=== PATIENT | female | born 1990 | race Caucasian/White ===

== ENCOUNTER → 2017-05-04 18:06 | Outpatient (CLI) | payer OTHER, SELFPAY | PROVIDERS: Family Provider Student in an Organized Health Care Education/Training Program; PCP Student in an Organized Health Care Education/Training Program; Visit Provider Nurse Practitioner Women's Health | DX: N30.01 Acute cystitis with hematuria (principal) | CPT/HCPCS: 87086; 87088; 87186 ==

== ENCOUNTER → 2017-05-13 14:58 | Outpatient (CLI) | payer OTHER, SELFPAY ==
[2017-05-13 18:05] LABS: Chlamydia Trachomatis by PCR Negative (Negative); Neisserai gonorrhoeae by PCR Negative (Negative); Probe Check PASS; Sample Adequacy Control PASS; Specimen Processing Control PASS
[2017-05-19 11:28] LABS: HPV Reflexed? NOT INDICATED
== END ==
PROVIDERS: Family Provider Student in an Organized Health Care Education/Training Program; PCP Student in an Organized Health Care Education/Training Program; Visit Provider Nurse Practitioner Women's Health
DX: Z12.4 Encounter for screening for malignant neoplasm of cervix (principal); Z11.3 Encounter for screening for infections with a predominantly sexual mode of transmission
CPT/HCPCS: 87491; 87591; 88175; G0145

== ENCOUNTER → 2019-11-01 10:28 | Outpatient (CLI) | payer OTHER, SELFPAY ==
[2019-11-01 09:39] VITALS: BMI 41.0
[2019-11-01 13:13] LABS: Free T3 2.9 pg/mL (2.18-3.98); T4 Free Direct 0.92 ng/dL (0.76-1.46); Thyroid Stim Hormone (TSH) 1.65 uIU/mL (0.358-3.74)
== END ==
LOC: BIMLAB 10:29
PROVIDERS: PCP Student in an Organized Health Care Education/Training Program; Referring Provider Internal Medicine Endocrinology, Diabetes & Metabolism; Visit Provider Internal Medicine Endocrinology, Diabetes & Metabolism
DX: R94.6 Abnormal results of thyroid function studies (principal)
CPT/HCPCS: 36415; 84439; 84443; 84481

== ENCOUNTER 2019-11-18 06:27 | Day surgery (SDC) | payer OTHER, SELFPAY ==
[2019-11-01 09:39] VITALS: BMI 41.0
[2019-11-18] VITALS (7 sets, daily range): BP systolic 118–136; BP diastolic 79–92; PULSE 53–92; RESP 16; TEMP 36.4–36.5; O2SAT 97–100; BMI 40.0
[2019-11-18 06:57] LABS: Internal QC Validated? YES +Cl - CLEAR BKGD; Pregnancy, Urine Negative Negative
[2019-11-18] MEDS: Lactated Ringers 1,000 ML 100 ML IV ×2 (07:13→10:09)
--- NOTE | 2019-11-18 08:05 | TUR_PTH ---
PATIENT: YOUNG SANTA [place] [facility] [id number] AGE/SX: 29/F ROOM: RE11/18/[address]: Dr. Faisal Kaufman MD : 1990 BED: DIS: 11/18/2019 SPEC #: [id number] RECD: 11/18/19 09:14 STATUS: RIANA FELIX #: [id number] LATA: 11/18/19 08:[address]: Faisal Kaufman DEPT: SURGICAL PATHOLOGY RECD BY: Nick Thomas ENTERED: 11/18/19 12:45 SP TYPE: TURBINATES OTHR DR: Dr. Douglas Verdugo, DO Tissues: Nasal turbinate, NOS Procedures: Decalcification bone/plaque Surgery Specimen Level III HEADER OPERATION: Septoplasty, resect/outfracture turbinates PRE-OP DIAGNOSIS: Deviated nasal septum, hypertrophy of nasal turbinates TISSUE SUBMITTED: Cartilage and nasal bone MICROSCOPIC DIAGNOSIS Cartilage and nasal bone, septoplasty: Fragments of cartilage and bone, clinically deviated nasal septum. MONTRELL:edwina 11/23/19 MICROSCOPIC DESCRIPTION Slides are reviewed. GROSS DESCRIPTION Received in fixative is one container labeled with the patient's name and designated nasal cartilage and bone. The specimen consists of multiple fragments of cartilage and bone mixed with hemorrhagic soft tissue that in aggregate measure 7 x 3 x 0.3 cm. Manager Cath Lab tissue is submitted in two cassettes after decalcification. / MONTRELL:edwina 11/21/19 TC:5 CPT: 16395, 13925
[2019-11-18] MEDS: Lidocaine 4% 50 ML Bottle (08:25)
[2019-11-18] MEDS: Bacitracin 500 UNITS/GM PACKET (08:25)
[2019-11-18] MEDS: Oxymetazoline 0.05% 1 SPRAY SPRAY.BTL 15 SPRAY (08:30)
--- NOTE | 2019-11-18 08:57 | DCINST_ITS ---
You will use the following diet at home:: No restrictions Discharge Activity: Return to Normal Activity, May not drive while taking narco tic pain medications. Call your doctor if your incision/area has: Continuous Slow Oozing, Sudden Increased Bleeding Call your doctor if you observe: Fever of 101 or Higher, Uncontrolled pain Allergies/Adverse Reactions: Allergies No Known Allergies Allergy (Verified 11/09/19 14:04) Medications to take at Discharge fluticasone propionate 50 mcg/actuation nasal spray,suspension 1 spray INTRANASAL BID 11/01/19 Primary Care Physician: Douglas Verdugo DO [Primary Care Provider] - Test Results: Test results from this visit will be discussed in further detail at your follow- up appointment, if applicable. Please Follow Up With: Faisal Kaufman MD When: 5 days
--- NOTE | 2019-11-18 08:57 | PCM.OPRPT ---
Problem List (1) Deviated nasal septum Status: Chronic (2) Hypertrophy of both inferior nasal turbinates Status: Chronic Report of Operation Date of Procedure: 11/18/19 Pre-Operative Diagnosis: Deviated nasal septum, hypertrophy of bilateral inferior nasal turbinates Post-Operative Diagnosis: Same Surgery/Procedure Performed:: Septoplasty, submucous resection of bilateral inferior nasal turbinates Description of Surgical Findings:: Yue is a 29-year-old female complains of chronic nasal obstruction failing medical therapy. Examination showed marked leftward nasal septal deviation and hypertrophy of the inferior nasal turbinates. The above procedure was offered in hopes of improvement of her nasal obstruction complaints and she was eager to proceed. The risk of coronavirus exposure in this time period was discussed and she is agreeable to accept this risk in exchange for treatment of her her chronic condition. The risks, alternatives, potential complications, and benefits were discussed at length and any questions answered to the patient and/or caregiver's satisfaction. Witnessed informed consent was obtained in the office, and the patient and/or caregiver was agreeable to proceed. Procedure went as follows: The patient was identified in the preoperative holding and brought to the operating room, was placed under general anesthesia and intubated. When appropriate anesthesia was obtained, pledgets soaked in a 50-50 mixture of oxymetazoline and 4% topical lidocaine were placed to decongest the nasal mucosa. The nasal septum was then injected beginning on the left side with 1% lidocaine with 100,000 epinephrine for a total of 5 mL. The pledgets were then removed and the left nasal cavity examined. There was noted to be significant nasal septal deviation to the left. Using a 15 blade scalpel, a hemitransfixion incision was then made on the left side and using the [place] elevator a subperichondrial/periosteal flap was elevated. The septum was then transected at the bony cartilaginous junction and a similar flap raised on the contralateral side. Using a Vicky forceps, the septum was then sharply transected superiorly and the deviated portions removed with a Melissa forceps. Any inferior bony spur was then removed with a chisel allowing for midline placement of the nasal septum. The hemitransfixion incision was then closed with interrupted 4-0 chromic gut suture followed by a 4-0 plain quilting suture to reapproximate the mucosal flaps. Attention was then turned to the inferior nasal turbinates. Beginning on the left side, the anterior aspect of the inferior turbinate was then injected with 1% lidocaine with 100,000 epinephrine for a total of 2.5 mL bilaterally. Again beginning on the left side a 15 blade scalpel was used to create a stab incision in the anterior aspect of the turbinate. A caudal elevator was then used to elevate a submucosal plane. Using the microdebrider, the anterior bony and intervening submucosal tissue was then removed resulting in reduction of the inferior turbinate. Similar procedure was then completed on the contralateral side. Corral splints were then applied after coating with bacitracin ointment and secured to the columella with a single 3-0 Prolene suture. The patient was then returned to anesthesia, was revived and extubated having tolerated the procedure well without complications. Type of Anesthesia:: General Anesthesiologist: Faisal Harding Special Medications: none Specimen's removed: septal and turbinate contents Drains: none Estimated Blood Loss (mL): 100 mL Fluids Replaced: 1100 mL Grafts/Implants Used: Corral splints - Complications none - Admit VTE Documentation VTE Present on Admission: No VTE Mechan Device Prophylaxis: SCD's VTE Pharm Prophylaxis ordered?: No
[2019-11-18] MEDS: HYDROcodone Bitartrate/Apap 5/325 Tablet PO (10:09)
== END 2019-11-18 11:21 | disposition home or self-care (01) ==
LOC: SDC 06:27 → AC 06:29
PROVIDERS: Anesthesiology; PCP Student in an Organized Health Care Education/Training Program; Referring Provider Otolaryngology; Visit Provider Otolaryngology
PROC: (CPT 30520; principal; 2019-11-18 07:50)
DX: J34.2 Deviated nasal septum (principal); Z11.59 Encounter for screening for other viral diseases; G25.81 Restless legs syndrome; J34.3 Hypertrophy of nasal turbinates; Z79.51 Long term (current) use of inhaled steroids
CPT/HCPCS: 00160; 30140; 30520; 81025; 87635; 88304; 88311; C9803; J7120; J2405; U0003

== ENCOUNTER → 2020-01-04 12:01 | Outpatient (CLI) | payer OTHER, SELFPAY ==
[2019-11-18 06:50] VITALS: BMI 40.0
[2020-01-04 15:52] LABS: Free T3 2.5 pg/mL (2.18-3.98); T4 Free Direct 0.91 ng/dL (0.76-1.46)
== END ==
LOC: BIMLAB 12:03
PROVIDERS: PCP Student in an Organized Health Care Education/Training Program; Referring Provider Internal Medicine Endocrinology, Diabetes & Metabolism; Visit Provider Internal Medicine Endocrinology, Diabetes & Metabolism
DX: E06.3 Autoimmune thyroiditis (principal)
CPT/HCPCS: 36415; 84439; 84443; 84481

== ENCOUNTER 2021-02-03 04:13 | Emergency (ER) | payer BC, SELFPAY ==
[2021-02-03 04:14] VITALS: BP 137/79; PULSE 114; RESP 28; TEMP 36.4; O2SAT 97; BMI 39.9
[2021-02-03 04:18] VITALS: BP 137/79; PULSE 114; RESP 28; TEMP 36.4; O2SAT 97
[2021-02-03] MEDS: 0.9% Normal Saline 1,000 ML 999 ML IV ×2 (04:32→06:00)
[2021-02-03 04:39] LABS: Absolute Lymphocyte Count 0.71 X10^3/uL (0.83-4.51); Basophil# 0.01 X10^3/uL; Basophil% 0.3 % (0-1); Hematocrit 38.5 % (37-47); Hemoglobin 12.9 g/dL (12.0-15.0); Lymphocyte # 0.71 X10^3/ul (0.83-4.51); Lymphocyte % 23.3 % (19-41); Mean Corp Hgb Conc 33.5 g/dL (32-36); Mean Corpuscular Hgb 28.2 pg (27.0-32.0); Mean Corpuscular Volume 84.2 fL (81-99); Mean Platelet Vol. 9.9 fl (6.2-12.0); Monocyte% 9.8 % (0-10); NRBC Flagged by Analyzer 0 % (0-5); Neutrophil % 65.6 % (47-70); Platelet Count 138 K/mm3 (150-450); RBC Distribution Width CV 13.8 % (11.6-14.6); RBC Distribution Width SD 42.3 fl (35.1-43.9); Red Blood Count 4.57 M/mm3 (4.2-5.4); White Blood Count 3.1 K/mm3 (4.4-11.0)
[2021-02-03 04:41] LABS: Mucous, Urine 0 SEEN /hpf (<or=2+); Red Blood Cells-Urine 0 SEEN /hpf (0-5)
[2021-02-03 04:42] LABS: Glucose, Dipstick Normal (Normal); Leukocyte Esterase-Dipstick 100 /ul (Negative); Nitrite-Dipstick Negative (Negative); Occult Blood-Urine 10 /ul (Negative); Protein-Dipstick 30 mg/dl (Negative); Urine Urobilinogen 12 mg/dl (Normal)
--- NOTE | 2021-02-03 04:46 | EKG12_ITS ---
Test Reason : NAUSEA AND V Blood Pressure : / mmHG Vent. Rate : 106 BPM Atrial Rate : 106 BPM P-R Int : 152 ms QRS Dur : 084 ms QT Int : 354 ms P-R-T Axes : 031 023 033 degrees QTc Int : 470 ms Sinus tachycardia Otherwise normal ECG Confirmed by KATERIN REYNOLDS, DANIKA ([id number]), editorial director DEREK IBARRA ([id number]) on 02/05/2021 9:17:29 AM Referred By: ALBERTO Confirmed By:DANIKA CONKLIN MD
[2021-02-03 04:58] LABS: AST(SGOT) 45 U/L (15-37); Alanine Aminotransfer ALT/SGPT 69 U/L (13-56); Albumin, Serum 2.6 g/dL (3.2-5.0); Alkaline Phosphatase 117 U/L (45-117); Anion Gap 11 (5-15); BUN 4 mg/dL (7-18); BUN/Creat Ratio 6.7 RATIO (10-20); Bilirubin, Direct 0.41 mg/dL (0.00-0.30); Calcium,Total 8.4 mg/dL (8.5-10.1); Chloride 108 mmol/L (98-107); EST Glomerular Filtration Rate 127 mL/min (>60); Est Glom Filt Rate - Afr Amer 153 mL/min (>60); Estimated Creatinine Clearance 144.58 ml/min; Globulin 3.9 g/dL (2.2-4.2); Glucose 90 mg/dL (74-106); Magnesium 1.6 mg/dL (1.6-2.6); Potassium 3.2 mmol/L (3.5-5.1); Protein, Total 6.5 g/dL (6.4-8.2); Sodium Level 140 mmol/L (136-145)
--- NOTE | 2021-02-03 05:00 | RAD_ITS ---
STUDY: X-RAY CHEST REASON FOR EXAM: Female, 30 years old. cough TECHNIQUE: Single AP portable view of the chest. COMPARISON: None. FINDINGS: Ill-defined subpleural groundglass opacities are seen more prominent in the lung bases , may represent atypical pneumonia or viral pneumonia (COVID-19 ?). There is no demonstrated pleural abnormality. Normal size heart. Normal mediastinum and dedie. Normal visualized pulmonary arteries. Normal visualized aortic arch and descending thoracic aorta. Normal visualized thoracic spine. Normal visualized ribs, clavicles, and shoulders. There is no demonstrated abnormality of the visualized soft tissue structures of the upper abdomen. RAD/Chest 1 View (Portable) IMPRESSION: Ill-defined subpleural groundglass opacities are seen more prominent in the lung bases , may represent atypical pneumonia or viral pneumonia (COVID-19 ?). Electronically Signed: Moe Pate MD at 5:34 EST Tel , Service support ,
[2021-02-03 05:16] LABS: Color, Urine AMBER (Yellow); Urine Bilirubin Dipstick 3 mg/dL (Negative); Urine Clarity Cloudy (Clear)
[2021-02-03 05:17] LABS: Ketone-Dipstick 150 mg/dl (Negative)
[2021-02-03 05:18] LABS: Squamous Epithelial Cells - UA 0-5 SEEN /hpf (5-10); White Blood Cells 0-5 SEEN /hpf (0-5)
[2021-02-03 05:19] LABS: Bacteria 2+ /hpf (None Seen)
--- NOTE | 2021-02-03 05:23 | EDS_ITS ---
HPI History of Present Illness Chief Complaint: Nausea/Vomiting Narrative Narrative: Patient is a 30-year-old female who is a G2, P1 approximately 19 weeks . She states that with her first which was approximately 9 years ago she had persistent nausea and vomiting for the entire . Patient states that the nausea and vomiting has been the same with this . She reports however that she contracted Covid approximately 7 days ago. She states since that time she has been having worsening cough and congestion as well as muscle ache fatigue and shortness of breath. She was seen in outside hospital approximately 48 hours ago and had blood work obtained and was given fluids. Patient states that her symptoms have been persistent however and with this presents for reevaluation [facility] Medical History (Updated 02/03/21 @ 06:[address] Minesh Wilkins DO) Anxiety and depression Environmental allergies Hyperthyroidism PID (pelvic inflammatory disease) Home Medications fluticasone propionate 50 mcg/actuation nasal spray,suspension 1 spray INTRANASAL BID 11/01/19 [History Last Taken Unknown] acetaminophen 500 mg PO Q4H PRN PRN tab 11/18/19 [Rx Last Taken Unknown] ibuprofen 400 mg PO Q6H PRN PRN tab 11/18/19 [Rx Last Taken Unknown] amoxicillin 500 mg PO TID 7 Days #21 cap 02/03/21 [Rx Last Taken Unknown] dexamethasone [Decadron] 6 mg PO DAILY 10 Days #10 tab 02/03/21 [Rx Last Taken Unknown] ondansetron HCl [Zofran] 4 mg PO Q6H PRN 02/03/21 [History Last Taken Unknown] promethazine [Phenergan] 25 mg PO Q6H PRN 02/03/21 [History Last Taken Unknown] Allergy/AdvReac Type Severity Reaction Status Date / Time No Known Allergies Allergy Verified 02/03/21 04:16 Family History Aunt Cancer ovarian Thyroid disorder Grandfather Heart disease Grandmother Thyroid disorder Surgical History History of adenoidectomy History of ear surgery Hx of appendectomy Social History (Updated 11/02/19 @ 13:[address] Shahid Obrien MD) Smoking Status: Former smoker alcohol intake: current details: social substance use type: does not use caffeine: Yes frequency: 5-6 times per week seatbelt use: always do you feel safe at home: Yes additional social history: single- hospice ROS ROS ED Constitutional Constitutional ED: Denies chills or fever(s) ENT ENT ED: Reports rhinorrhea and sore throat Cardiovascular Cardiovascular: Denies chest pain Respiratory/Chest Respiratory/Chest: Reports cough, dyspnea and sputum Gastrointestinal Gastrointestinal: Reports nausea and vomiting; Denies abdominal pain or diarrhea Genitourinary Genitourinary ED: Denies dysuria or hematuria Musculoskeletal Musculoskeletal: Reports myalgias Integumentary Denies rash Neurologic Neurologic: Denies headache(s) EXAM Physical Exam Const Vital Signs: 02/03/21 04:14 02/03/21 04:18 02/03/21 05:53 Temperature 97.5 F L 97.5 F L 97.5 F L Temperature Source Temporal Temporal Temporal Pulse Rate 114 H 114 H 114 H Respiratory Rate 28 H 28 H 28 H Blood Pressure 137/79 H 137/79 H 137/79 H Blood Pressure Mean 98 98 98 Pulse Ox 97 97 97 Oxygen Delivery Method Room Air Room Air Room Air 02/03/21 06:26 Temperature Temperature Source Pulse Rate 103 H Respiratory Rate 24 H Blood Pressure Blood Pressure Mean Pulse Ox 95 Oxygen Delivery Method Room Air Positive well nourished and well developed General Appearance ED: well developed HEENT Reports dry mucous membranes Mouth ED: Yes dry mucous membranes Mouth: dry mucous membranes Eyes PERRL and EOMs intact bilaterally Neck supple Neck Narrative: Positive anterior cervical lymphadenopathy Resp Resp Narrative: Patient is in mild respiratory distress with tachypnea breathing approximately 30 times per minute as well as mild accessory muscle use. Breath sounds are diminished throughout with faint expiratory wheezes noted Cardio regular rhythm Rate: tachycardic and other Other Details: Tachycardic rate with regular rhythm. Radial pulses are +2-4 bilaterally are equal and symmetric GI non-tender and non-distended Auscultation: normoactive bowel sounds Palpation: soft Extremity normal to inspection Extremity Narrative: No asymmetric edema no pitting edema negative Homans' sign bilaterally Neuro oriented x3 and CN's II-XII intact bilaterally Sensorium / Orientation: alert Motor Exam: strength 5/5 throughout Psych Psych Narrative: Nervous/anxious affect Skin no rashes or lesions noted MDM MDM MDM Narrative Medical decision making narrative: Patient presented to the ER afebrile but in mild respiratory distress with tachypnea despite a normal room air pulse ox. She reported she was approximately 7 days into her Covid diagnosis. With her persistent symptoms I did elect to perform basic laboratory studies as well as a chest x-ray. Chest x-ray showed groundglass opacities most consistent with Covid pneumonia. Lab work showed a UTI but otherwise no clinically significant findings. Patient was given 2 L of fluid because of her persistent nausea and vomiting treated with IV Phenergan as well as IV Decadron. On reevaluation her work of breathing has improved and her breath rate is now just above 20. She reports that she is scheduled to receive monoclonal antibody therapy come Thursday. She was able to tolerate ice chips in the ER without further bouts of vomiting. Therefore at this time with patient having improvement of symptoms and no clinically significant derangements to her labs I will continue her on Decadron and will add amoxicillin because of the UTI but is otherwise safe for discharge. Lab Data Attestation: I reviewed the patient's lab results. Labs: Laboratory Results - last 24 hr 02/03/21 02/03/21 02/03/21 04:20 04:20 04:35 WBC 3.1 L RBC 4.57 Hgb 12.9 Hct 38.5 MCV 84.2 MCH 28.2 MCHC 33.5 RDW Std Deviation 42.3 RDW Coeff of Jailyn 13.8 Plt Count 138 L MPV 9.9 Immature Gran % (Auto) 1.000 H Neut % (Auto) 65.6 Lymph % (Auto) 23.3 Cascade % (Auto) 9.8 Eos % (Auto) 0.0 Baso % (Auto) 0.3 Absolute Neuts (auto) 2.0 Absolute Lymphs (auto) 0.71 L Nucleated RBC % 0 Sodium 140 Potassium 3.2 L Chloride 108 H Carbon Dioxide 21.0 Anion Gap 11 BUN 4 L Creatinine 0.60 Estim Creat Clear Calc 144.58 Est GFR (MDRD) Af Amer 153 Est GFR (MDRD) Non-Af 127 BUN/Creatinine Ratio 6.7 L Glucose 90 Calcium 8.4 L Magnesium 1.6 Total Bilirubin 0.80 Direct Bilirubin 0.41 H AST 45 H ALT 69 H Alkaline Phosphatase 117 Total Protein 6.5 Albumin 2.6 L Globulin 3.9 Urine Color DEYSI Urine Clarity Cloudy Urine pH 6.0 Ur Specific Gill 1.020 Urine Protein 30 H Urine Glucose (UA) Normal Urine Ketones 150 A* Urine Occult Blood 10 H Urine Nitrite Negative Urine Bilirubin 3 H Urine Urobilinogen 12 H Ur Leukocyte Esterase 100 H Urine RBC 0 SEEN Urine WBC 0-5 SEEN Ur Squamous Epith Cells 0-5 SEEN Urine Bacteria 2+ Urine Mucus 0 SEEN Radiography Diagnostic Testing: Clinical Impression(s) from Imaging Studies Chest X-Ray 02/03/21 05:00 IMPRESSION: Ill-defined subpleural groundglass opacities are seen more prominent in the lung bases , may represent atypical pneumonia or viral pneumonia (COVID-19 ?). Electronically Signed: Moe Pate MD at 5:34 EST Tel , Service support , Discharge Plan Triage Chief Complaint: Nausea/Vomiting Other Complaint: Cough ED Provider: Minesh Wilkins Dx/Rx/DC Orders Clinical Impression: Pneumonia due to 2019 novel coronavirus, Mild dehydration, UTI (urinary tract infection) Instructions: Coronavirus Disease 2019 (COVID-19): Caring for Yourself or Others Prescriptions: New dexamethasone [Decadron] 6 mg tablet 6 mg PO DAILY 10 Days Qty: 10 RF: 0 amoxicillin 500 mg capsule 500 mg PO TID 7 Days Qty: 21 RF: 0 No Action fluticasone propionate 50 mcg/actuation spray,suspension 1 spray INTRANASAL BID RF: 0 acetaminophen 500 MG tablet 500 mg PO Q4H PRN PRN (Reason: Pain Score 1-5/10) RF: 0 ibuprofen 200 MG tablet 400 mg PO Q6H PRN PRN (Reason: Pain Score 4-10/10) RF: 0 ondansetron HCl [Zofran] 4 mg Tablet 4 mg PO Q6H PRN (Reason: Nausea And Vomiting) RF: 0 promethazine [Phenergan] 25 mg Tablet 25 mg PO Q6H PRN (Reason: Nausea And Vomiting) RF: 0 Primary Care Provider: Douglas Verdugo Referrals: Douglas Verdugo DO [Primary Care Provider] - Disposition Disposition: Home, Self Care
[2021-02-03] MEDS: dexAMETHasone 10 MG/ML Vial IV (05:38)
[2021-02-03] MEDS: proMETHazine 25 MG/ML Syringe IM (05:39)
[2021-02-03 05:53] VITALS: BP 137/79; PULSE 114; RESP 28; TEMP 36.4; O2SAT 97
[2021-02-03] MEDS: AMOXICILLIN 500 MG CAPSULE PO (06:00)
[2021-02-03 06:26] VITALS: PULSE 103; RESP 24; O2SAT 95
[2021-02-03 08:10] VITALS: PULSE 102; RESP 30; O2SAT 94
== END 2021-02-03 08:23 | disposition home or self-care (01) ==
PROVIDERS: Emergency Provider Emergency Medicine; PCP Student in an Organized Health Care Education/Training Program
DX: O98.512 Other viral diseases complicating pregnancy, second trimester (principal); U07.1 COVID-19; O21.9 Vomiting of pregnancy, unspecified; O23.42 Unspecified infection of urinary tract in pregnancy, second trimester; J12.82 Pneumonia due to coronavirus disease 2019; O99.282 Endocrine, nutritional and metabolic diseases complicating pregnancy, second trimester; E05.90 Thyrotoxicosis, unspecified without thyrotoxic crisis or storm; O99.342 Other mental disorders complicating pregnancy, second trimester; O99.512 Diseases of the respiratory system complicating pregnancy, second trimester; F32.A Depression, unspecified; E86.0 Dehydration; F41.9 Anxiety disorder, unspecified; Z87.891 Personal history of nicotine dependence; Z79.52 Long term (current) use of systemic steroids; Z3A.19 19 weeks gestation of pregnancy
CPT/HCPCS: 71045; 80048; 80076; 81001; 83735; 85025; 87086; 87088; 93005; 96361; 96372; 96374; 99284; J7030; A4216

== ENCOUNTER 2021-02-04 19:57 | Inpatient (IN) | payer BC, SELFPAY ==
[2021-02-04 19:59] VITALS: BP 124/83; PULSE 116; RESP 18; TEMP 37.2; O2SAT 95; BMI 40.0
--- NOTE | 2021-02-04 20:41 | EDS_ITS ---
HPI History of Present Illness Chief Complaint: Nausea/Vomiting Informant: patient Onset/Context/Timing Onset: Days Context: Gradual Onset Timing: Continuous Current Severity: Mild Maximum Severity: Mild Narrative Narrative: 22-year-old female no seen past medical history. G2, P1 Ab0. Currently 19 weeks and 3 days due June 28, 2021. Currently under the care of Dr. Morales from [facility]. Patient tested positive for Covid on 1124. She is unvaccinated. Says she has had nausea and vomiting. This is her third emergency department visit. States every time she comes in she gets fluids and nausea medication but when she goes home she cannot hold down either medications or fluids he says she is also being treated with a UTI on amoxicillin. Patient is unvaccinated for Covid. Prior similar symptoms: Yes Recent Illness/Hospitalization: No PFSH PFSH Medical History (Updated 02/04/21 @ 23:[address] Saul Sanchez MD) Anxiety and depression Environmental allergies Hyperthyroidism PID (pelvic inflammatory disease) Home Medications fluticasone propionate 50 mcg/actuation nasal spray,suspension 1 spray INTRANASAL BID 11/01/19 [History Last Taken Unknown] acetaminophen 500 mg PO Q4H PRN PRN tab 11/18/19 [Rx Last Taken Unknown] ibuprofen 400 mg PO Q6H PRN PRN tab 11/18/19 [Rx Last Taken Unknown] amoxicillin 500 mg PO TID 7 Days #21 cap 02/03/21 [Rx Last Taken Unknown] dexamethasone [Decadron] 6 mg PO DAILY 10 Days #10 tab 02/03/21 [Rx Last Taken Unknown] ondansetron HCl [Zofran] 4 mg PO Q6H PRN 02/03/21 [History Last Taken Unknown] promethazine [Phenergan] 25 mg PO Q6H PRN 02/03/21 [History Last Taken Unknown] Allergy/AdvReac Type Severity Reaction Status Date / Time No Known Allergies Allergy Verified 02/03/21 04:16 Family History Aunt Cancer ovarian Thyroid disorder Grandfather Heart disease Grandmother Thyroid disorder Surgical History History of adenoidectomy History of ear surgery Hx of appendectomy Social History Smoking Status: Former smoker alcohol intake: current details: social substance use type: does not use caffeine: Yes frequency: 5-6 times per week seatbelt use: always do you feel safe at home: Yes additional social history: single- hospice ROS ROS ED ROS Narrative Nausea and vomiting. Review of Systems ROS Unobtainable: Denies due to encephalopathy Constitutional Constitutional ED: Reports chills and fever(s) Eyes Eyes: Denies change in vision ENT ENT ED: Denies ear pain or sore throat Cardiovascular Cardiovascular: Denies chest pain Respiratory/Chest Respiratory/Chest: Reports cough; Denies dyspnea Gastrointestinal Gastrointestinal: Reports nausea and vomiting; Denies abdominal pain or diarrhea Genitourinary Genitourinary ED: Denies dysuria or hematuria Musculoskeletal Musculoskeletal: Denies myalgias Integumentary Denies rash Neurologic Neurologic: Denies headache(s) Psychiatric Psychiatric: Denies depression Endocrine Endocrinology: Denies polyuria Allergic/Immunologic Allergic/Immunologic ED: Denies urticaria EXAM Physical Exam Narrative Exam Narrative: 30-year-old female vital signs stable afebrile she does not look septic toxic she is no distress. Pulse ox 9% room air no signs of hypoxia. H EENT exam unremarkable. Moist remembers. Neck nontender no lymphadenopathy. No meningismus. Lungs clear to auscultation bilaterally. Heart tachycardic rate about 115 no murmur. Abdomen soft nondistended normal bowel sounds no peritoneal signs. Gravid nontender uterus. Moving all 4 extremities. Nontender no edema. Back nontender. Neurologically she is awake and alert with no focal motor deficits. Const Vital Signs: 02/04/21 19:59 02/04/21 21:01 02/04/21 23:14 Temperature 98.9 F 98.6 F 98.9 F Temperature Source Temporal Temporal Temporal Pulse Rate 116 H 88 89 Respiratory Rate 18 18 18 Blood Pressure 124/83 H 134/78 H 134/89 H Blood Pressure Mean 96 96 104 Pulse Ox 95 96 95 Oxygen Delivery Method Room Air Room Air Room Air Positive well nourished, well developed and obese; Negative for cachectic, contractures or unkempt General Appearance ED: well developed and NAD; Negative for unkempt, cachectic, contractures, cyanotic or diaphoretic Nutritional Appearance: obese; Negative for cachectic HEENT Reports moist mucous membranes Negative for trauma or tenderness Eyes PERRL and EOMs intact bilaterally General Eye ED: Negative for pale conjunctiva or scleral icterus Neck no lymphadenopathy, supple and no JVD General: Negative for tenderness Chest Wall inspection of chest normal; Negative for palpation of chest normal Resp normal respiratory effort and clear to auscultation bilaterally Effort and Inspection: Negative for pain with movement Auscultation: Negative for rales, rhonchi or wheezes Cardio regular rhythm, S1 normal heart sound, S2 normal heart sound and no murmurs Rate: tachycardic GI normal to inspection, nondistended, normoactive bowel sounds, non-tender, non- distended and no masses GI Narrative: Gravid nontender uterus. Auscultation: normoactive bowel sounds Palpation: soft; Negative for tender, guarding or rebound tenderness present Back/Spine no CVA tenderness General Back: Negative for CVA tenderness Cervical Spine: Negative for cervical spine tenderness Thoracic Spine / Upper Back: Negative for thoracic spinal tenderness Extremity normal to inspection General Extremety ED: Negative for edema or tenderness General Extremity: Negative for edema Neuro oriented x3, CN's II-XII intact bilaterally and no sensory deficits noted Sensorium / Orientation: alert; Negative for orientation impaired, lethargic or stuporous Motor Exam: strength 5/5 throughout Psych mental status grossly normal Appearance: Negative for unkempt Attitude: No agitated Mood & Affect: Negative for depressed or tearful Skin no rashes or lesions noted and no wounds MDM MDM MDM Narrative Medical decision making narrative: 30-year-old female 19+ weeks also Covid positive complaint nausea and vomiting. Patient treated with IV fluids and Zofran. Patient had continued nausea and vomiting in the emergency department. I spoke to the hospitalist who thought this was more of an [employer] admission. I spoke to the nurse head inspector on-call for [facility] [employer] and they will admit the patient for IV fluids and continued nausea medication. Lab Data Attestation: I reviewed the patient's lab results. Lab results narrative: CBC shows a white count of 4. Hemoglobin 11.7. Platelets 137. Electrolytes show potassium 2.9 gap of 10 normal BUN and creatinine. Liver enzymes are unremarkable total bilirubin 1.1. Transabdominal bedside ultrasound done by ER physician shows a single live IUP with movement and cardiac activity. Labs: Laboratory Results - last 24 hr 11/29/21 11/29/21 21:49 21:49 WBC 4.3 L RBC 4.12 L Hgb 11.7 L Hct 34.9 L MCV 84.7 MCH 28.4 MCHC 33.5 RDW Std Deviation 42.8 RDW Coeff of Jailyn 13.9 Plt Count 137 L MPV 10.4 Immature Gran % (Auto) 0.700 Neut % (Auto) 79.8 H Lymph % (Auto) 13.5 L [place] % (Auto) 6.0 Eos % (Auto) 0.0 Baso % (Auto) 0.0 Absolute Neuts (auto) 3.4 Absolute Lymphs (auto) 0.58 L Nucleated RBC % 0 Differential Comment SCANNED Diff Path Review July Sodium 141 Potassium 2.9 L Chloride 108 H Carbon Dioxide 23.0 Anion Gap 10 BUN 5 L Creatinine 0.55 Estim Creat Clear Calc 157.73 Est GFR (MDRD) Af Amer 167 Est GFR (MDRD) Non-Af 138 BUN/Creatinine Ratio 9.1 L Glucose 85 Calcium 8.2 L Total Bilirubin 1.10 H AST 74 H ALT 85 H Alkaline Phosphatase 102 Total Protein 6.2 L Albumin 2.5 L Globulin 3.7 Albumin/Globulin Ratio 0.7 L Radiography Chest X-Ray - ED: 1 View, Read by ED Physician, Heart, Mediastinum, Bony Structures, No Acute Disease, Right Infiltrate and Left Infiltrate Diagnostic Testing: Clinical Impression(s) from Imaging Studies Chest X-Ray 02/04/21 21:51 IMPRESSION: Similar bilateral pulmonary infiltrates. Electronically Signed: Sav Branch MD at 22:08 EST Tel , Service support , Portable, Single view chest x-ray, interpreted by myself and radiologist shows bilateral infiltrates consistent with COVID-19. Normal cardiac silhouette mediastinum. Discharge Plan Triage Chief Complaint: Nausea/Vomiting ED Provider: Saul Sanchez Dx/Rx/DC Orders Clinical Impression: Intractable nausea and vomiting, COVID-19, Second trimester , Acute hypokalemia Prescriptions: No Action fluticasone propionate 50 mcg/actuation spray,suspension 1 spray INTRANASAL BID RF: 0 acetaminophen 500 MG tablet 500 mg PO Q4H PRN PRN (Reason: Pain Score 1-5/10) RF: 0 ibuprofen 200 MG tablet 400 mg PO Q6H PRN PRN (Reason: Pain Score 4-10/10) RF: 0 ondansetron HCl [Zofran] 4 mg Tablet 4 mg PO Q6H PRN (Reason: Nausea And Vomiting) RF: 0 promethazine [Phenergan] 25 mg Tablet 25 mg PO Q6H PRN (Reason: Nausea And Vomiting) RF: 0 dexamethasone [Decadron] 6 mg tablet 6 mg PO DAILY 10 Days Qty: 10 RF: 0 amoxicillin 500 mg capsule 500 mg PO TID 7 Days Qty: 21 RF: 0 Primary Care Provider: Douglas Verdugo Referrals: Douglas Verdugo DO [Primary Care Provider] - Disposition Disposition: Acute Care [facility]
[2021-02-04 21:01] VITALS: BP 134/78; PULSE 88; RESP 18; TEMP 37; TEMP 37.2; O2SAT 96
[2021-02-04] MEDS: 0.9% Normal Saline 1,000 ML 1000 ML IV (21:46)
[2021-02-04] MEDS: Ondansetron 4 MG/2 ML Vial IV (21:47)
--- NOTE | 2021-02-04 21:51 | RAD_ITS ---
STUDY: X-RAY CHEST REASON FOR EXAM: Female, 30 years old. Covid. . Shield abd TECHNIQUE: Portable, upright, AP chest radiograph COMPARISON: Left 2821 FINDINGS: Similar bilateral patchy pulmonary opacities. There is no demonstrated pleural abnormality. Normal size heart. Normal mediastinum and eddie. Normal visualized pulmonary arteries. Normal visualized aortic arch and descending thoracic aorta. There is no demonstrated abnormality of the visualized soft tissue structures of the upper abdomen. RAD/Chest 1 View (Portable) IMPRESSION: Similar bilateral pulmonary infiltrates. Electronically Signed: Sav Branch MD at 22:08 EST Tel , Service support ,
[2021-02-04 22:21] LABS: Absolute Lymphocyte Count 0.58 X10^3/uL (0.83-4.51); Absolute Neutrophil Count 3.4 X10^3/uL (2.0-7.7); Hematocrit 34.9 % (37-47); Hemoglobin 11.7 g/dL (12.0-15.0); Lymphocyte # 0.58 X10^3/ul (0.83-4.51); Lymphocyte % 13.5 % (19-41); Mean Corp Hgb Conc 33.5 g/dL (32-36); Mean Corpuscular Hgb 28.4 pg (27.0-32.0); Mean Corpuscular Volume 84.7 fL (81-99); Mean Platelet Vol. 10.4 fl (6.2-12.0); Monocyte# 0.26 X10^3/uL; NRBC Flagged by Analyzer 0 % (0-5); Neutrophil # 3.43 X10^3/uL (2.7-7.7); Neutrophil % 79.8 % (47-70); POSITIVE DIFFERENTIAL YES; Platelet Count 137 K/mm3 (150-450); RBC Distribution Width CV 13.9 % (11.6-14.6); RBC Distribution Width SD 42.8 fl (35.1-43.9); Red Blood Count 4.12 M/mm3 (4.2-5.4); White Blood Count 4.3 K/mm3 (4.4-11.0)
[2021-02-04 22:28] LABS: Differential Indicated SCAN CRITERIA MET
[2021-02-04 22:39] LABS: ALB/GLOB Ratio 0.7 RATIO (0.9-2.4); AST(SGOT) 74 U/L (15-37); Alanine Aminotransfer ALT/SGPT 85 U/L (13-56); Albumin, Serum 2.5 g/dL (3.2-5.0); Alkaline Phosphatase 102 U/L (45-117); Anion Gap 10 (5-15); BUN 5 mg/dL (7-18); BUN/Creat Ratio 9.1 RATIO (10-20); Calcium,Total 8.2 mg/dL (8.5-10.1); Chloride 108 mmol/L (98-107); Creatinine, Serum 0.55 mg/dL (0.55-1.02); EST Glomerular Filtration Rate 138 mL/min (>60); Est Glom Filt Rate - Afr Amer 167 mL/min (>60); Estimated Creatinine Clearance 157.73 ml/min; Globulin 3.7 g/dL (2.2-4.2); Glucose 85 mg/dL (74-106); Potassium 2.9 mmol/L (3.5-5.1); Protein, Total 6.2 g/dL (6.4-8.2); Sodium Level 141 mmol/L (136-145)
[2021-02-04 22:48] LABS: Differential Comment SCANNED
[2021-02-04 23:14] VITALS: BP 134/89; PULSE 89; RESP 18; TEMP 37.2; O2SAT 95
[2021-02-04 23:36] LABS: Mucous, Urine 0 SEEN /hpf (<or=2+)
[2021-02-04 23:37] LABS: Color, Urine Yellow (Yellow); Glucose, Dipstick Normal (Normal); Leukocyte Esterase-Dipstick 100 /ul (Negative); Nitrite-Dipstick Negative (Negative); Occult Blood-Urine 10 /ul (Negative); Protein-Dipstick 30 mg/dl (Negative); Urine Clarity Clear (Clear); Urine Urobilinogen 12 mg/dl (Normal)
[2021-02-05] VITALS (7 sets, daily range): BP systolic 111–126; BP diastolic 62–82; PULSE 91–105; RESP 16–20; TEMP 35.6–36.6; O2SAT 94–100; BMI 41.7
[2021-02-05 00:04] LABS: Urine Bilirubin Dipstick 3 mg/dL (Negative)
[2021-02-05 00:06] LABS: Ketone-Dipstick 150 mg/dl (Negative)
[2021-02-05 00:07] LABS: Red Blood Cells-Urine 0-5 SEEN /hpf (0-5); Squamous Epithelial Cells - UA 10-25 SEEN /hpf (5-10); White Blood Cells 5-10 SEEN /hpf (0-5)
[2021-02-05 00:08] LABS: Bacteria 2+ /hpf (None Seen)
[2021-02-05] MEDS: Ondansetron 4 MG/2 ML Vial IV ×4 (00:18→22:02)
[2021-02-05] MEDS: Potassium Chloride 10mEq/100mL 10 MEQ/100 ML IV.SOLN. 100 MEQ IV BOLUS ×2 (04:07→05:02)
[2021-02-05] MEDS: Lactated Ringers 1,000 ML 150 ML IV ×3 (06:51→19:40)
--- NOTE | 2021-02-05 07:59 | PCM.HP.OB ---
HPI - General General Date of Admission: 02/05/21 HPI Narrative YOUNG SANTA, is a 30 F @ 39 weeks who presents for IOL due to obesity in Maternal Data Information Final DIGNA: 02/12/21 Final DIGNA Source: US <20 weeks Gestational age: 39 PFSH PFSH Medical History (Updated 02/05/21 @ 08:[address] Netta Jaramillo MD) Anxiety and depression Environmental allergies Alejandrina's thyroiditis PID (pelvic inflammatory disease) Home Medications fluticasone propionate 50 mcg/actuation nasal spray,suspension 1 spray INTRANASAL BID 11/01/19 [History Last Taken Unknown] acetaminophen 500 mg PO Q4H PRN PRN tab 11/18/19 [Rx Last Taken Unknown] ondansetron HCl [Zofran] 4 mg PO Q6H PRN 02/03/21 [History Last Taken Unknown] promethazine [Phenergan] 25 mg PO Q6H PRN 02/03/21 [History Last Taken Unknown] amoxicillin 500 mg PO TID 02/05/21 [History Last Taken Unknown] doxylamine succinate [Unisom (doxylamine)] 50 mg PO QHS 02/05/21 [History Last Taken Unknown] vitamin [id number] acid 1 tab PO DAILY 02/05/21 [History Last Taken Unknown] Allergy/AdvReac Type Severity Reaction Status Date / Time No Known Allergies Allergy Verified 02/03/21 04:16 Family History Aunt Cancer ovarian Thyroid disorder Grandfather Heart disease Grandmother Thyroid disorder Surgical History History of adenoidectomy History of ear surgery Hx of appendectomy Social History Smoking Status: Former smoker alcohol intake: current details: social substance use type: does not use caffeine: Yes frequency: 5-6 times per week seatbelt use: always do you feel safe at home: Yes additional social history: single- hospice History 2 Elective abortions Hx Para 1 Spontaneous abortions Hx # Term Pregnancies Ectopic pregnancies Hx # Pregnancies Multiple births # of living children Past Pregnancies Del. Date Name GA/Weeks Outcome Route Bth Weight Infant Gen Labor Lgth Anesthesia Del [facility] Provider FOB Unknown 2012 Tarik NST FHR Rate Baby A Baseline: 145 Variability:: Moderate Accelerations:: 15 x 15 Decelerations:: None NST Reactive:: Yes FHR Category:: Category I Uterine Activity:: occasional Vital Signs Vital Signs Vital Signs: 02/04/21 19:59 02/04/21 21:01 02/04/21 23:14 Temperature 98.9 F 98.6 F 98.9 F Temperature Source Temporal Temporal Temporal Pulse Rate 116 H 88 89 Respiratory Rate 18 18 18 Blood Pressure 124/83 H 134/78 H 134/89 H Blood Pressure Mean 96 96 104 Blood Pressure Source Blood Pressure Position Blood Pressure Location Pulse Ox 95 96 95 Oxygen Delivery Method Room Air Room Air Room Air 02/05/21 00:19 02/05/21 02:41 02/05/21 05:02 Temperature 97.9 F Temperature Source Temporal Pulse Rate 105 H 95 Respiratory Rate 20 H 16 20 H Blood Pressure 126/82 H 122/78 H Blood Pressure Mean 96 92 Blood Pressure Source Blood Pressure Position Blood Pressure Location Pulse Ox 96 100 Oxygen Delivery Method Room Air Room Air 02/05/21 06:01 Temperature 96.5 F L Temperature Source Oral Pulse Rate 94 Respiratory Rate 16 Blood Pressure 116/62 Blood Pressure Mean 80 Blood Pressure Source Monitor Blood Pressure Position Semi-Fowlers Blood Pressure Location Right Arm Pulse Ox 95 Oxygen Delivery Method Room Air Weight Weight: 124.4 kg Body Mass Index (BMI) 41.7 Physical Exam Narrative VE: 370/-2 attempted AROM but no fluid noted- will recheck at later time and reattempt AROM if no signs of ROM Const alert and oriented x3 General Appearance: cooperative HEENT normocephalic GI GI Narrative: Gravid, non tender to palpation. OB / External & Speculum: external exam normal Extremity normal to inspection Skin no rashes or lesions noted Neuro oriented x3 and CN's II-XII intact bilaterally Psych Appearance: grossly normal Labs Labs Labs: Hct 34.9 % (37-47) L Hgb 11.7 g/dL (12.0-15.0) L Neisseria gonorrhoeae DNA (AMBERLY) Negative (Negative) C.trachomatis DNA (PCR) Negative (Negative) Assessment & Plan (1) Obesity affecting : QUALIFIERS: Trimester: third trimester Qualified Code(s): O99.213 - Obesity complicating , third trimester (2) 39 weeks gestation of : PLAN: Admit to L&D [facility] FHR/TOCO Epidural if requested for pain Monitor VS Anticipate Vancomycin for GBS pitocin
--- NOTE | 2021-02-05 08:06 | PCM.HP.OB ---
HPI - General General Date of Admission: 02/05/21 HPI Narrative YOUNG SANTA, is a 30 F G2P @ 19+ weeks with PNC Dr. rhodes in [place] who presents with persistent N/V and +COVID status (test 01.30.21). pt reports had problems with n/v in but was improving until she testing + for covid last week and then it got worse. pt reports was taking phenergan with some relief. pt got frustrated with current OB as she felt like they wern't listening to her concerns hence why she came to [facility]. pt reports yesterday 02/04/21 got monoclonal AB at [facility]. pt reports difficult to take fluids w/o n/v and now has diarrhea. pt reports is SOB and has persistent cough. pt reports in last week she reports 15# weight loss. pt denies any OB concerns- no VB, Cramping or LOF. pt reports had one previous normal delivery. pt denies any h/p HTN or other Ob complications. Maternal Data Information Final DIGNA: 06/28/21 Final DIGNA Source: US <20 weeks Gestational age: 19.3 PFSH PFS Medical History (Updated 02/05/21 @ 08:[address] Netta Jaramillo MD) Anxiety and depression Environmental allergies Alejandrina's thyroiditis PID (pelvic inflammatory disease) Home Medications fluticasone propionate 50 mcg/actuation nasal spray,suspension 1 spray INTRANASAL BID 11/01/19 [History Last Taken Unknown] acetaminophen 500 mg PO Q4H PRN PRN tab 11/18/19 [Rx Last Taken Unknown] ondansetron HCl [Zofran] 4 mg PO Q6H PRN 02/03/21 [History Last Taken Unknown] promethazine [Phenergan] 25 mg PO Q6H PRN 02/03/21 [History Last Taken Unknown] amoxicillin 500 mg PO TID 02/05/21 [History Last Taken Unknown] doxylamine succinate [Unisom (doxylamine)] 50 mg PO QHS 02/05/21 [History Last Taken Unknown] vitamin [id number] acid 1 tab PO DAILY 02/05/21 [History Last Taken Unknown] Allergy/AdvReac Type Severity Reaction Status Date / Time No Known Allergies Allergy Verified 02/03/21 04:16 Family History Aunt Cancer ovarian Thyroid disorder Grandfather Heart disease Grandmother Thyroid disorder Surgical History History of adenoidectomy History of ear surgery Hx of appendectomy Social History Smoking Status: Former smoker alcohol intake: current details: social substance use type: does not use caffeine: Yes frequency: 5-6 times per week seatbelt use: always do you feel safe at home: Yes additional social history: single- hospice History 2 Elective abortions Hx Para 1 Spontaneous abortions Hx # Term Pregnancies Ectopic pregnancies Hx # Pregnancies Multiple births # of living children Past Pregnancies Del. Date Name GA/Weeks Outcome Route Bth Weight Infant Gen Labor Lgth Anesthesia Del Locatn Provider FOB Unknown 2012 Tarik Vital Signs Vital Signs Vital Signs: 02/04/21 19:59 02/04/21 21:01 02/04/21 23:14 Temperature 98.9 F 98.6 F 98.9 F Temperature Source Temporal Temporal Temporal Pulse Rate 116 H 88 89 Respiratory Rate 18 18 18 Blood Pressure 124/83 H 134/78 H 134/89 H Blood Pressure Mean 96 96 104 Blood Pressure Source Blood Pressure Position Blood Pressure Location Pulse Ox 95 96 95 Oxygen Delivery Method Room Air Room Air Room Air 02/05/21 00:19 02/05/21 02:41 02/05/21 05:02 Temperature 97.9 F Temperature Source Temporal Pulse Rate 105 H 95 Respiratory Rate 20 H 16 20 H Blood Pressure 126/82 H 122/78 H Blood Pressure Mean 96 92 Blood Pressure Source Blood Pressure Position Blood Pressure Location Pulse Ox 96 100 Oxygen Delivery Method Room Air Room Air 02/05/21 06:01 Temperature 96.5 F L Temperature Source Oral Pulse Rate 94 Respiratory Rate 16 Blood Pressure 116/62 Blood Pressure Mean 80 Blood Pressure Source Monitor Blood Pressure Position Semi-Fowlers Blood Pressure Location Right Arm Pulse Ox 95 Oxygen Delivery Method Room Air Weight Weight: 124.4 kg Body Mass Index (BMI) 41.7 Physical Exam Const alert and oriented x3 General Appearance: cooperative Nutritional Appearance: obese HEENT normocephalic Head and Scalp: normal to inspection Resp Resp Narrative: pt has labored breathing- able to talk in complete sentences but does have to stop at points to catch her breath. ON auscultation they sound clear bilaterally but, possibly diminished. Labs Labs Labs: Hct 34.9 % (37-47) L Hgb 11.7 g/dL (12.0-15.0) L Neisseria gonorrhoeae DNA (AMBERLY) Negative (Negative) C.trachomatis DNA (PCR) Negative (Negative) Assessment & Plan (1) 19 weeks gestation of : (2) Obesity affecting in second trimester: (3) Intractable nausea and vomiting: (4) COVID-19: (5) Acute hypokalemia: PLAN: HD#1 consult hospitalist for +COVID status and labored breathing- right now seems stable but would like medicine to see her incase status changes monitor O2 saturation and VS K replacement IVF ZOFRAN/REGLAN- will add phenergan if needed FHR was + when in ER Regular diet as tolerated recheck BMP
[2021-02-05] MEDS: Metoclopramide 10 MG/2 ML Vial IV ×2 (08:16→16:46)
[2021-02-05] MEDS: Famotidine 200 MG/20 ML MDV 20 MG in 0.9% Normal Saline (Pres. free 8 ML 300 MG IV (08:24)
--- NOTE | 2021-02-05 08:29 | PCM.CONS.GEN ---
Assessment & Plan Assessment/Plan (1) Hypoxia: (2) 19 weeks gestation of : (3) COVID-19: (4) Acute hypokalemia: PLAN: Patient is a 30-year-old lady 2 para 1 at 19 weeks of gestation admitted with progressive generalized weakness 1. Acute COVID-19 pneumonia ?Patient has been admitted to regular nursing floor. Currently being managed with supplemental oxygen which is being titrated to keep sat greater than 90. Given her underlying condition i.e. consult was placed to ID patient was seen in consultation by Dr. Snider who recommended remdesivir patient however did express disinterest in remdesivir. She had received monoclonal antibody therapy on 02/04/2021 2. Severe hypokalemia -aggressive repletion initiated repeat labs ordered 3. 19 weeks gestation ?Management deferred to DOUBLER OPERATOR 4. Obesity with BMI of 41.7 ?Weight loss advised 5. DVT prophylaxis ?SC heparin for now Advance planning; given patient's COVID-19 diagnosis did discuss with the patient y regarding advanced directives as well as CODE STATUS. Did explain the various scenarios involved ( FULL CODE, DNR CCA, DNR CCA with no intubation, and DNR CC and what each meant) patient elected remain full code with CPR and intubation if needed. Order was placed. Time spent on discussion 18 minutes. HPI Consult Data Date of Consult: 02/05/21 HPI Narrative Reason for Consultation: Medical management Covid and electrolyte abnormalities HPI Narrative: YOUNG SANTA, is a 30 F who presents who is 2 para 1 currently 19 weeks who presented with progressive generalized weakness. Patient Covid team started on 01/28/2021. Did receive monoclonal antibody therapy on 02/03/2021. Presented to the emergency department in view of worsening symptoms. Imaging studies obtained on admission demonstrated bilateral pulmonary infiltrate. Admitted to regular nursing floor for subsequent management [facility] Medical History Anxiety and depression Environmental allergies Alejandrina's thyroiditis PID (pelvic inflammatory disease) Home Medications fluticasone propionate 50 mcg/actuation nasal spray,suspension 1 spray INTRANASAL BID 11/01/19 [History Last Taken Unknown] acetaminophen 500 mg PO Q4H PRN PRN tab 11/18/19 [Rx Last Taken Unknown] ondansetron HCl [Zofran] 4 mg PO Q6H PRN 02/03/21 [History Last Taken Unknown] promethazine [Phenergan] 25 mg PO Q6H PRN 02/03/21 [History Last Taken Unknown] amoxicillin 500 mg PO TID 02/05/21 [History Last Taken Unknown] doxylamine succinate [Unisom (doxylamine)] 50 mg PO QHS 02/05/21 [History Last Taken Unknown] vitamin E95-iotte acid 1 tab PO DAILY 02/05/21 [History Last Taken Unknown] Allergy/AdvReac Type Severity Reaction Status Date / Time No Known Allergies Allergy Verified 02/03/21 04:16 Family History Aunt Cancer ovarian Thyroid disorder Grandfather Heart disease Grandmother Thyroid disorder Surgical History History of adenoidectomy History of ear surgery Hx of appendectomy Social History Smoking Status: Former smoker alcohol intake: current details: social substance use type: does not use caffeine: Yes frequency: 5-6 times per week seatbelt use: always do you feel safe at home: Yes additional social history: single- hospice ROS ROS Narrative GENERAL: d anorexia HEENT: dysphagia RESPIRATORY: cough, shortness of breath, dyspnea on exertion CARDIAC: denies chest pain, palpitations, GASTROINTESTINAL: denies abdominal pain, nausea, GENITOURINARY: denies dysuria, urgency, frequency, EXTREMITY: denies swelling MUSCULOSKELETAL: denies current joint pain or tenderness NEUROLOGIC: denies focal numbness, weakness, tingling HEMATOLOGIC: denies easy bruising and/or hemorrhage INTEGUMENT: denies rashes PSYCHIATRIC: denies suicidal or homicidal ideation Physical Exam Narrative GENERAL: Patient appears ill looking HEENT: Atraumatic; EYES; Anicteric, Normal Conjunctiva NECK; supple, normal thyroid, RESPIRATORY: Diminished to auscultation CARDIOVASCULAR: Regular S1 S2, GI: soft, normoactive bowel sounds, : No Renal angle tenderness; EXTREMITIES: No edema, no clubbing, MUSCULOSKELETAL: no muscle waisting NEURO: Awake; no lateralizing signs. SKIN: No Rash PSYCH; Flat affect Lab / Micro Data Result Diagrams: 02/04/21 21:49 02/05/21 09:35 Labs: Laboratory Results - last 24 hr 02/04/21 21:49: WBC 4.3 L, RBC 4.12 L, Hgb 11.7 L, Hct 34.9 L, MCV 84.7, MCH 28.4, MCHC 33.5, RDW Std Deviation 42.8, RDW Coeff of Jailyn 13.9, Plt Count 137 L, MPV 10.4, Immature Gran % (Auto) 0.700, Neut % (Auto) 79.8 H, Lymph % (Auto) 13.5 L, [place] % (Auto) 6.0, Eos % (Auto) 0.0, Baso % (Auto) 0.0, Absolute Neuts (auto) 3.4, Absolute Lymphs (auto) 0.58 L, Nucleated RBC % 0, Differential Comment SCANNED, Diff Path Review July foll 02/04/21 21:49: Sodium 141, Potassium 2.9 L, Chloride 108 H, Carbon Dioxide 23.0, Anion Gap 10, BUN 5 L, Creatinine 0.55, Estim Creat Clear Calc 157.73, Est GFR (MDRD) Af Amer 167, Est GFR (MDRD) Non-Af 138, BUN/Creatinine Ratio 9.1 L, Glucose 85, Calcium 8.2 L, Total Bilirubin 1.10 H, AST 74 H, ALT 85 H, Alkaline Phosphatase 102, Total Protein 6.2 L, Albumin 2.5 L, Globulin 3.7, Albumin/Globulin Ratio 0.7 L 02/04/21 23:30: Urine Color Yellow, Urine Clarity Clear, Urine pH 6.0, Ur Specific [place] 1.020, Urine Protein 30 H, Urine Glucose (UA) Normal, Urine Ketones 150 A*, Urine Occult Blood 10 H, Urine Nitrite Negative, Urine Bilirubin 3 H, Urine Urobilinogen 12 H, Ur Leukocyte Esterase 100 H, Urine RBC 0-5 SEEN, Urine WBC 5-10 SEEN, Ur Squamous Epith Cells 10-25 SEEN, Urine Bacteria 2+, Urine Mucus 0 SEEN Radiology Impression Chest X-Ray 02/04/21 21:51 IMPRESSION: Similar bilateral pulmonary infiltrates. Electronically Signed: Sav Branch MD at 22:08 EST Tel , Service support , Charges/Coding Visit Charges Office Visits / Consults: 69869 IP Consult L5 Procedures Hospitalists Procedures: [id number] Advncd Care Plan 30 Min
[2021-02-05 10:07] LABS: ALB/GLOB Ratio 0.6 RATIO (0.9-2.4); AST(SGOT) 48 U/L (15-37); Alanine Aminotransfer ALT/SGPT 63 U/L (13-56); Albumin, Serum 1.9 g/dL (3.2-5.0); Alkaline Phosphatase 83 U/L (45-117); Anion Gap 9 (5-15); BUN 3 mg/dL (7-18); BUN/Creat Ratio 8.2 RATIO (10-20); Calcium,Total 7.9 mg/dL (8.5-10.1); Chloride 113 mmol/L (98-107); Creatinine, Serum 0.37 mg/dL (0.55-1.02); EST Glomerular Filtration Rate 220 mL/min (>60); Est Glom Filt Rate - Afr Amer 267 mL/min (>60); Estimated Creatinine Clearance 226.31 ml/min; Globulin 3.2 g/dL (2.2-4.2); Glucose 107 mg/dL (74-106); Potassium 2.7 mmol/L (3.5-5.1); Protein, Total 5.1 g/dL (6.4-8.2); Sodium Level 142 mmol/L (136-145)
--- NOTE | 2021-02-05 11:53 | CON.PCM.ID_ITS ---
Assessment & Plan Assessment/Plan (1) 19 weeks gestation of : (2) COVID-19: PLAN: severe covid with hypoxia, 19 week . Sx started 01/28. Unvaccinated. Isolate for 20 days from start of symptoms. Recommend vaccine in 90 days for her after monoclonal Abs 02/04. Recommend and son get retes jalen and vaccinate. On dex. Reviewed increased risk of miscarriage, premature delivery with covid infection, she is not interested in remdesivir. Reports her mom had complications with covid infection including blood clots after getting remdesivir; counseled that blood clots are associated with covid, not remdesivir, but she is not interested. Will follow as needed, thank you (3) Hypoxia: HPI Consult Data Date of Consult: 02/05/21 HPI Narrative HPI Narrative: YOUNG SANTA, is a 30 F who presented 02/03 with sx starting 01/28/21, c/o headache, cough, congestion, body aches, diarrhea, fever, chills, progressive dyspnea. No change in taste/smell. Unvaccinated. 19 weeks . and 9yo son at home unvaccinated, tested neg, asymptomatic. Given monoclonal Abs 02/04, sx worsened, admitted on dex. Feeling a little better. Full ROS performed and neg except as noted above. [facility] Medical History Anxiety and depression Environmental allergies Alejandrina's thyroiditis PID (pelvic inflammatory disease) Home Medications fluticasone propionate 50 mcg/actuation nasal spray,suspension 1 spray INTRANASAL BID 11/01/19 [History Last Taken Unknown] acetaminophen 500 mg PO Q4H PRN PRN tab 11/18/19 [Rx Last Taken Unknown] ondansetron HCl [Zofran] 4 mg PO Q6H PRN 02/03/21 [History Last Taken Unknown] promethazine [Phenergan] 25 mg PO Q6H PRN 02/03/21 [History Last Taken Unknown] amoxicillin 500 mg PO TID 02/05/21 [History Last Taken Unknown] doxylamine succinate [Unisom (doxylamine)] 50 mg PO QHS 02/05/21 [History Last Taken Unknown] vitamin H29-nvaga acid 1 tab PO DAILY 02/05/21 [History Last Taken Unknown] Allergy/AdvReac Type Severity Reaction Status Date / Time No Known Allergies Allergy Verified 02/03/21 04:16 Family History Aunt Cancer ovarian Thyroid disorder Grandfather Heart disease Grandmother Thyroid disorder Surgical History History of adenoidectomy History of ear surgery Hx of appendectomy Social History Smoking Status: Former smoker alcohol intake: current details: social substance use type: does not use caffeine: Yes frequency: 5-6 times per week seatbelt use: always do you feel safe at home: Yes additional social history: single- hospice Physical Exam Const alert, oriented x3 and no apparent distress General Appearance: cooperative Exam Limitations: no limitations HEENT normocephalic and head/scalp atraumatic Eyes PERRL and EOMs intact bilaterally Neck supple and No nodes Resp Auscultation: diminished lung sounds Cardio regular rhythm GI normal to inspection, nondistended, normoactive bowel sounds Extremity no clubbing, cyanosis or edema Skin no rashes or lesions noted Neuro CN's II-XII intact bilaterally Lab / Micro Data Result Diagrams: 02/04/21 21:49 02/05/21 09:35 Labs: Laboratory Results - last 24 hr 02/04/21 21:49: WBC 4.3 L, RBC 4.12 L, Hgb 11.7 L, Hct 34.9 L, MCV 84.7, MCH 28.4, MCHC 33.5, RDW Std Deviation 42.8, RDW Coeff of Jailyn 13.9, Plt Count 137 L, MPV 10.4, Immature Gran % (Auto) 0.700, Neut % (Auto) 79.8 H, Lymph % (Auto) 13.5 L, [place] % (Auto) 6.0, Eos % (Auto) 0.0, Baso % (Auto) 0.0, Absolute Neuts (auto) 3.4, Absolute Lymphs (auto) 0.58 L, Nucleated RBC % 0, Differential Comme nt SCANNED, Diff Path Review July02/04/21 21:49: Sodium 141, Potassium 2.9 L, Chloride 108 H, Carbon Dioxide 23.0, Anion Gap 10, BUN 5 L, Creatinine 0.55, Estim Creat Clear Calc 157.73, Est GFR (MDRD) Af Amer 167, Est GFR (MDRD) Non-Af 138, BUN/Creatinine Ratio 9.1 L, Glucose 85, Calcium 8.2 L, Total Bilirubin 1.10 H, AST 74 H, ALT 85 H, Alkaline Phosphatase 102, Total Protein 6.2 L, Albumin 2.5 L, Globulin 3.7, Albumin/Globulin Ratio 0.7 L 02/04/21 23:30: Urine Color Yellow, Urine Clarity Clear, Urine pH 6.0, Ur Specific [place] 1.020, Urine Protein 30 H, Urine Glucose (UA) Normal, Urine Ketones 150 A*, Urine Occult Blood 10 H, Urine Nitrite Negative, Urine Bilirubin 3 H, Urine Urobilinogen 12 H, Ur Leukocyte Esterase 100 H, Urine RBC 0-5 SEEN, Urine WBC 5-10 SEEN, Ur Squamous Epith Cells 10-25 SEEN, Urine Bacteria 2+, Urine Mucus 0 SEEN 02/05/21 09:35: Sodium 142, Potassium 2.7 L*, Chloride 113 H, Carbon Dioxide 20.0 L, Anion Gap 9, BUN 3 L, Creatinine 0.37 L, Estim Creat Clear Calc 226.31, Est GFR (MDRD) Af Amer 267, Est GFR (MDRD) Non-Af 220, BUN/Creatinine Ratio 8.2 L, Glucose 107 H, Calcium 7.9 L, Total Bilirubin 0.90, AST 48 H, ALT 63 H, Alkaline Phosphatase 83, Total Protein 5.1 L, Albumin 1.9 L, Globulin 3.2, Albumin/Globulin Ratio 0.6 L Radiology Impression Chest X-Ray 02/04/21 21:51 IMPRESSION: Similar bilateral pulmonary infiltrates. Electronically Signed: Sav Branch MD at 22:08 EST Tel , Service support ,
[2021-02-05] MEDS: Potassium Chloride 10mEq/100mL 10 MEQ/100 ML IV.SOLN. 85 MEQ IV BOLUS ×2 (12:18→13:43)
[2021-02-05] MEDS: Potassium Chloride Oral Tablet 20 MEQ 40 MEQ PO (12:18)
--- NOTE | 2021-02-05 13:10 | PCS.PANDOC ---
PANDEMIC DOCUMENTATION INITIATED: Date: 10/22/2020 Time: 190
[2021-02-05 13:20] LABS: Pathologist Review Reviewed
--- NOTE | 2021-02-05 13:39 | NURSING ---
FHR 136bpm obtained with doppler at bedside.
[2021-02-05 14:24] LABS: BNP,B-Type NATRIURETIC PEPTIDE 3.7 pg/mL (0-100); Bilirubin, Direct 0.45 mg/dL (0.00-0.30); CPK Total, Creatine Kinase 450 U/L (26-192); LDH 254 U/L (84-246)
[2021-02-05 14:31] LABS: Procalcitonin 0.05 ng/mL (0.00-0.09)
[2021-02-05] MEDS: Potassium Chloride 10mEq/100mL 10 MEQ/100 ML IV.SOLN. 70 MEQ IV BOLUS ×4 (15:02→23:55)
[2021-02-05 19:34] LABS: Fibrinogen 452 mg/dl (203-444)
[2021-02-05 19:35] LABS: Anion Gap 7 (5-15); BUN 3 mg/dL (7-18); BUN/Creat Ratio 7.2 RATIO (10-20); Calcium,Total 8.3 mg/dL (8.5-10.1); Chloride 112 mmol/L (98-107); Creatinine, Serum 0.42 mg/dL (0.55-1.02); EST Glomerular Filtration Rate 191 mL/min (>60); Est Glom Filt Rate - Afr Amer 232 mL/min (>60); Estimated Creatinine Clearance 199.37 ml/min; Glucose 108 mg/dL (74-106); Potassium 3.2 mmol/L (3.5-5.1); Sodium Level 142 mmol/L (136-145)
[2021-02-05] MEDS: Acetaminophen 325 MG Tablet 650 MG PO (19:43)
[2021-02-05 19:45] LABS: Lactic Acid 0.9 mmol/L (0.4-1.9)
[2021-02-05 20:18] LABS: D-Dimer Quantitative (DVT/PE) 0.62 FEU/ug/m (0.27-0.49)
[2021-02-05] MEDS: 0.9% Saline Lock 10 ML Syringe IV (22:02)
--- NOTE | 2021-02-05 23:58 | NURSING ---
late entry: RN in room at 1999 to assess FHR via doppler ultrasound. RN ausculatated FHR in left lower quadrant with regular rhythm noted at baseline 140. Pt reports faint movement due to anterior placenta. Pt denies other obstetrical complaints at this time.
--- NOTE | 2021-02-06 00:25 | VDLE_ITS ---
Reason For Study: ELEVATED D DIMER RIGHT LEFT GSV is normal. GSV is normal. CFV is compressible, spontaneous, phasic, CFV is compressible, spontaneous, phasic, competent and demonstrates normal competent, and demonstrates normal augmentation. augmentation. FV is compressible, spontaneous, phasic, FV is compressible, spontaneous, phasic, competent and demonstrates normal competent and demonstrates normal augmentation. augmentation. POP V is compressible, spontaneous, phasic, POP V is compressible, spontaneous, phasic, competent and demonstrates normal competent and demonstrates normal augmentation. augmentation. T/P Trunk is compressible. T/P Trunk is compressible. PTV is compressible. PTV is compressible. RT PerV is compressible. LT PerV is compressible. Procedure Exam performed portable in patient room. The exam was abbreviated due to the COVID 19 protocol. A preliminary report was called and/or faxed to [facility]. VL/Venous Duplex US - [place] Extrem Interpretation Summary No evidence for acute deep venous thrombosis bilateral lower extremities with p atent and compressible bilateral great saphenous veins. COVID-19 protocol utilized Ordering Physician: Geraldo Peña Referring Physician: MOLLY BLANCO Performed By: Krystal Powell, DANIELE, RVT
[2021-02-06] MEDS: Potassium Chloride 10mEq/100mL 10 MEQ/100 ML IV.SOLN. 70 MEQ IV BOLUS (01:16)
[2021-02-06] MEDS: Enoxaparin 40 MG/0.4 ML Syringe SC (01:17)
[2021-02-06] MEDS: 0.9% Saline Lock 10 ML Syringe IV ×6 (02:32→20:35)
[2021-02-06] MEDS: Metoclopramide 10 MG/2 ML Vial IV ×3 (02:32→18:06)
[2021-02-06] MEDS: Lactated Ringers 1,000 ML 150 ML IV ×4 (02:33→22:12)
[2021-02-06 02:44] VITALS: BP 115/70; PULSE 92; RESP 18; TEMP 35.7; O2SAT 96
[2021-02-06] MEDS: Potassium Chloride 10mEq/100mL 10 MEQ/100 ML IV.SOLN. 60 MEQ IV BOLUS (02:53)
[2021-02-06 06:44] LABS: Absolute Lymphocyte Count 1.09 X10^3/uL (0.83-4.51); Absolute Neutrophil Count 2.2 X10^3/uL (2.0-7.7); Basophil# 0.01 X10^3/uL; Basophil% 0.3 % (0-1); Eosinophil# 0.02 X10^3/uL; Eosinophils% 0.6 % (0-5); Hematocrit 30.3 % (37-47); Hemoglobin 10.1 g/dL (12.0-15.0); Lymphocyte # 1.09 X10^3/ul (0.83-4.51); Lymphocyte % 30.4 % (19-41); Mean Corp Hgb Conc 33.3 g/dL (32-36); Mean Corpuscular Hgb 28.1 pg (27.0-32.0); Mean Corpuscular Volume 84.4 fL (81-99); Mean Platelet Vol. 10.1 fl (6.2-12.0); Monocyte# 0.26 X10^3/uL; Monocyte% 7.3 % (0-10); NRBC Flagged by Analyzer 0 % (0-5); Neutrophil # 2.18 X10^3/uL (2.7-7.7); Neutrophil % 60.8 % (47-70); Platelet Count 141 K/mm3 (150-450); RBC Distribution Width CV 14.1 % (11.6-14.6); RBC Distribution Width SD 43.8 fl (35.1-43.9); Red Blood Count 3.59 M/mm3 (4.2-5.4); White Blood Count 3.6 K/mm3 (4.4-11.0)
[2021-02-06 07:09] LABS: AST(SGOT) 41 U/L (15-37); Alanine Aminotransfer ALT/SGPT 56 U/L (13-56); Albumin, Serum 1.9 g/dL (3.2-5.0); Alkaline Phosphatase 83 U/L (45-117); Anion Gap 7 (5-15); BUN 2 mg/dL (7-18); BUN/Creat Ratio 6.1 RATIO (10-20); Bilirubin, Direct 0.35 mg/dL (0.00-0.30); Calcium,Total 8.1 mg/dL (8.5-10.1); Chloride 112 mmol/L (98-107); Creatinine, Serum 0.33 mg/dL (0.55-1.02); EST Glomerular Filtration Rate 254 mL/min (>60); Est Glom Filt Rate - Afr Amer 307 mL/min (>60); Estimated Creatinine Clearance 253.74 ml/min; Globulin 3.1 g/dL (2.2-4.2); Glucose 75 mg/dL (74-106); Magnesium 1.6 mg/dL (1.6-2.6); Potassium 3.2 mmol/L (3.5-5.1); Sodium Level 143 mmol/L (136-145)
--- NOTE | 2021-02-06 07:51 | NURSING ---
FHR 155bpm via doppler done at bedside at 0730.
--- NOTE | 2021-02-06 07:55 | PN.HOSP_ITS ---
Subjective Subjective Patient seen still complains of feeling weak. Had a persistent cough and was prescribed antitussives. Did encourage the use of incentive spirometry. Potassium still remains low further repletion initiated Objective Data Objective Data Vital Signs: Vital Signs Temp Pulse Resp BP Pulse Ox 96.2 F L 92 18 115/70 96 02/06/21 02:44 02/06/21 02:44 02/06/21 02:44 02/06/21 02:44 02/06/21 02:44 Oxygen Delivery Method Room Air Weight: 124.4 kg Body Mass Index (BMI) 41.7 Intake & Output: Intake and Output for Last 24 Hours 02/04/21 02/05/21 02/06/21 23:59 23:59 23:59 Intake Total 4339.17 / 4339.17 1294.5 / 1294.5 Balance 4339.17 / 4339.17 1294.5 / 1294.5 Lab / Micro Data Result Diagrams: 02/06/21 05:52 02/06/21 05:52 Labs: Laboratory Results - last 24 hr 02/04/21 21:49: Diff Path Review Reviewed 02/05/21 09:35: Sodium 142, Potassium 2.7 L*, Chloride 113 H, Carbon Dioxide 20.0 L, Anion Gap 9, BUN 3 L, Creatinine 0.37 L, Estim Creat Clear Calc 226.31, Est GFR (MDRD) Af Amer 267, Est GFR (MDRD) Non-Af 220, BUN/Creatinine Ratio 8.2 L, Glucose 107 H, Calcium 7.9 L, Total Bilirubin 0.90, AST 48 H, ALT 63 H, Alkaline Phosphatase 83, Total Protein 5.1 L, Albumin 1.9 L, Globulin 3.2, Albumin/Globulin Ratio 0.6 L 02/05/21 09:35: Total Bilirubin Cancelled, Direct Bilirubin 0.45 H, AST Cancelled, ALT Cancelled, Alkaline Phosphatase Cancelled, Lactate Dehydrogenase 254 H, Total Creatine Kinase 450 H, Total Protein Cancelled, Albumin Cancelled, Globulin Cancelled 02/05/21 09:35: B-Natriuretic Peptide 3.7 02/05/21 09:35: Procalcitonin 0.05 02/05/21 19:08: Sodium 142, Potassium 3.2 L, Chloride 112 H, Carbon Dioxide 23.0, Anion Gap 7, BUN 3 L, Creatinine 0.42 L, Estim Creat Clear Calc 199.37, Est GFR (MDRD) Af Amer 232, Est GFR (MDRD) Non-Af 191, BUN/Creatinine Ratio 7.2 L, Glucose 108 H, Calcium 8.3 L 02/05/21 19:08: Fibrinogen 452 H, D-Dimer Quant (PE/DVT) 0.62 H* 02/05/21 19:08: Lactic Acid 0.9 02/06/21 05:52: WBC 3.6 L, RBC 3.59 L, Hgb 10.1 L, Hct 30.3 L, MCV 84.4, MCH 28.1, MCHC 33.3, RDW Std Deviation 43.8, RDW Coeff of Jailyn 14.1, Plt Count 141 L, MPV 10.1, Immature Gran % (Auto) 0.600, Neut % (Auto) 60.8, Lymph % (Auto) 30.4, [place] % (Auto) 7.3, Eos % (Auto) 0.6, Baso % (Auto) 0.3, Absolute Neuts (auto) 2.2, Absolute Lymphs (auto) 1.09, Nucleated RBC % 0 02/06/21 05:52: Sodium 143, Potassium 3.2 L, Chloride 112 H, Carbon Dioxide 24.0, Anion Gap 7, BUN 2 L, Creatinine 0.33 L, Estim Creat Clear Calc 253.74, E st GFR (MDRD) Af Amer 307, Est GFR (MDRD) Non-Af 254, BUN/Creatinine Ratio 6.1 L , Glucose 75, Calcium 8.1 L, Magnesium 1.6, Total Bilirubin 0.60, Direct Bilirubin 0.35 H, AST 41 H, ALT 56, Alkaline Phosphatase 83, Total Protein 5.0 L , Albumin 1.9 L, Globulin 3.1 Micro: Microbiology 02/05/21 17:45 Interface Orders Legionella Antigen - Final 02/05/21 17:45 Interface Orders Streptococcus pneumoniae Antigen (M - Final 02/05/21 15:00 Mucosa - Nose Respiratory Panel (PCR) - Final Physical Exam Narrative GENERAL: Patient appears ill looking HEENT: Atraumatic; EYES; Anicteric, Normal Conjunctiva NECK; supple, normal thyroid, RESPIRATORY: Diminished to auscultation CARDIOVASCULAR: Regular S1 S2, GI: soft, normoactive bowel sounds, : No Renal angle tenderness; EXTREMITIES: No edema, no clubbing, MUSCULOSKELETAL: no muscle waisting NEURO: Awake; no lateralizing signs. SKIN: No Rash PSYCH; Flat affect Assessment & Plan Assessment/Plan (1) Hypoxia: (2) 19 weeks gestation of : (3) COVID-19: (4) Acute hypokalemia: PLAN: Patient is a 30-year-old lady 2 para 1 at 19 weeks of gesta tion admitted with progressive generalized weakness 1. Acute COVID-19 pneumonia ?Patient has been admitted to regular nursing floor. Currently being managed with supplemental oxygen which is being titrated to keep sat greater than 90. Given her underlying condition i.e. consult was placed to ID patient was seen in consultation by Dr. Snider who recommended remdesivir patient however did express disinterest in remdesivir. She had received monoclonal antibody therapy on 02/04/2021 -02/06/2021; patient seen still complains of feeling weak. Had a persistent cough and was prescribed antitussives. Did encourage the use of incentive spirometry 2. Severe hypokalemia -aggressive repletion initiated repeat labs ordered ?02/06/2021. Patient still remains hypokalemic 3. 19 weeks gestation ?Management deferred to NAIL GALVANIZER 4. Obesity with BMI of 41.7 ?Weight loss advised 5. DVT prophylaxis ?SC heparin for now Charges/Coding Visit Charges Inpatient E&M: 10617 Subs Hosp L3
[2021-02-06 08:03] VITALS: BP 117/73; PULSE 86; RESP 18; TEMP 36.1; O2SAT 94
[2021-02-06] MEDS: Famotidine 200 MG/20 ML MDV 20 MG in 0.9% Normal Saline (Pres. free 8 ML 300 MG IV ×2 (08:13→22:12)
[2021-02-06] MEDS: Acetaminophen 325 MG Tablet 650 MG PO ×2 (08:13→13:55)
[2021-02-06] MEDS: Ondansetron 4 MG/2 ML Vial IV ×3 (08:13→20:39)
[2021-02-06] MEDS: Potassium Chloride Oral Tablet 20 MEQ PO ×2 (08:18→18:06)
--- NOTE | 2021-02-06 08:22 | PCM.PN.BLA ---
Progress Note Patient seen at bedside on med/surg. unit. Tearful and wants to go home. Continues to vomit (x2 while in room with patient). Stated she cannot sleep due to staff continuing to come into room. Positive movement. Denies any loss of fluid, vaginal bleeding or contractions. Physical Exam Const alert, oriented x3 and no apparent distress General Appearance: cooperative and other tearful Orientation / Consciousness: awake Exam Limitations: no limitations HEENT normocephalic Head and Scalp: normal to inspection Eyes General Eye: normal appearance of both eyes Neck full ROM and no lymphadenopathy Lymph Lymphatic: no lymphadenopathy noted Chest inspection of chest normal Resp normal respiratory effort and normal air movement Resp Narrative: O2 Sat- 94-95% RA Effort and Inspection: actively coughing Cardio regular rate and regular rhythm GI normal to inspection, nondistended, normoactive bowel sounds Back/Spine normal ROM Extremity full ROM and no calf tenderness Skin no rashes or lesions noted General Skin Exam: no breakdown Neuro oriented x3 and CN's II-XII intact bilaterally Psych mental status grossly normal and thought process normal Mood & Affect: tearful Assessment & Plan Assessment/Plan (1) Hypoxia: (2) 19 weeks gestation of : (3) Obesity affecting in second trimester: (4) COVID-19: (5) Intractable nausea and vomiting: (6) Acute hypokalemia: (7) Second trimester : PLAN: FHT daily via doppler Hospitalist and ID involved with plan of care Stable from OB standpoint Dr. Valdez updated and is collaborating physician
[2021-02-06] MEDS: Potassium Chloride 10mEq/100mL 10 MEQ/100 ML IV.SOLN. 100 MEQ IV BOLUS ×4 (10:13→15:27)
[2021-02-06 14:03] VITALS: BP 124/75; PULSE 90; RESP 16; TEMP 35.7; O2SAT 96
[2021-02-06 20:25] VITALS: BP 118/71; PULSE 93; RESP 18; TEMP 36.4; O2SAT 94
[2021-02-06 20:31] VITALS: RESP 18
[2021-02-07] MEDS: Metoclopramide 10 MG/2 ML Vial IV ×2 (02:06→10:49)
[2021-02-07 02:10] VITALS: BP 119/66; PULSE 94; RESP 18; TEMP 36.7; O2SAT 94
[2021-02-07 02:11] VITALS: RESP 18
--- NOTE | 2021-02-07 03:16 | NURSING ---
FHR 142 via doppler. FHR auscultated in pts left lower quadrant. pt reports feeling movement and audible movement heard with doppler. maternal radial pulse 90bpm.
[2021-02-07] MEDS: Ondansetron 4 MG/2 ML Vial IV (05:13)
[2021-02-07] MEDS: Lactated Ringers 1,000 ML 150 ML IV (05:13)
--- NOTE | 2021-02-07 07:21 | PN.HOSP_ITS ---
Subjective Subjective Patient seen remains relatively stable. Currently not requiring any oxygen. Potassium still low at 3.2 additional potassium given. Patient may be ready for discharge however decision will be deferred to PROPERTY FIELD INSPECTOR primary service Objective Data Objective Data Vital Signs: Vital Signs Temp Pulse Resp BP Pulse Ox 98.0 F 94 18 119/66 94 02/07/21 02:10 02/07/21 02:10 02/07/21 02:11 02/07/21 02:10 02/07/21 02:10 Oxygen Delivery Method Room Air Weight: 124.4 kg Body Mass Index (BMI) 41.7 Intake & Output: Intake and Output for Last 24 Hours 02/05/21 02/06/21 02/07/21 23:59 23:59 23:59 Intake Total 4339.17 / 4339.17 6107.0 / 6107.0 1500 / 1500 Output Total 200 / 200 Balance 4339.17 / 4339.17 5907.0 / 5907.0 1500 / 1500 Lab / Micro Data Result Diagrams: 02/06/21 05:52 02/07/21 06:55 Micro: Microbiology 02/05/21 17:45 Interface Orders Legionella Antigen - Final 02/05/21 17:45 Interface Orders Streptococcus pneumoniae Antigen (M - Final 02/05/21 15:00 Mucosa - Nose Respiratory Panel (PCR) - Final Radiography Diagnostic Testing: Radiology Impression Venous Doppler Study 02/06/21 00:25 Interpretation Summary No evidence for acute deep venous thrombosis bilateral lower extremities with patent and compressible bilateral great saphenous veins. COVID-19 protocol utilized Ordering Physician: Geraldo Peña Referring Physician: MOLLY BLANCO Performed By: Krystal Powell RDCS, RVT Physical Exam Narrative GENERAL: Patient appears ill looking HEENT: Atraumatic; EYES; Anicteric, Normal Conjunctiva NECK; supple, normal thyroid, RESPIRATORY: Diminished to auscultation CARDIOVASCULAR: Regular S1 S2, GI: soft, normoactive bowel sounds, : No Renal angle tenderness; EXTREMITIES: No edema, no clubbing, MUSCULOSKELETAL: no muscle waisting NEURO: Awake; no lateralizing signs. SKIN: No Rash PSYCH; Flat affect Assessment & Plan Assessment/Plan (1) Hypoxia: (2) 19 weeks gestation of : (3) COVID-19: (4) Acute hypokalemia: PLAN: Patient is a 30-year-old lady 2 para 1 at 19 weeks of gestation admitted with progressive generalized weakness 1. Acute COVID-19 pneumonia ?Patient has been admitted to regular nursing floor. Currently being managed with supplemental oxygen which is being titrated to keep sat greater than 90. Given her underlying condition i.e. consult was placed to ID patient was seen in consultation by Dr. Snider who recommended remdesivir patient however did express disinterest in remdesivir. She had received monoclonal antibody therapy on 02/04/2021 -02/06/2021; patient seen still complains of feeling weak. Had a persistent cough and was prescribed antitussives. Did encourage the use of incentive spirometry ?02/07/2021; remains relatively stable 2. Severe hypokalemia -aggressive repletion initiated repeat labs ordered ?02/06/2021. Patient still remains hypokalemic ?02/07/2021 additional potassium replacement given 3. 19 weeks gestation ?Management deferred to PROPERTY FIELD INSPECTOR 4. Obesity with BMI of 41.7 ?Weight loss advised 5. DVT prophylaxis ?SC heparin for now Charges/Coding Visit Charges Inpatient E&M: 66974 Subs Hosp L2
[2021-02-07 08:10] LABS: AST(SGOT) 37 U/L (15-37); Alanine Aminotransfer ALT/SGPT 52 U/L (13-56); Albumin, Serum 2.1 g/dL (3.2-5.0); Alkaline Phosphatase 92 U/L (45-117); Globulin 3.1 g/dL (2.2-4.2); Protein, Total 5.2 g/dL (6.4-8.2)
[2021-02-07 08:45] VITALS: BP 130/76; PULSE 99; RESP 16; TEMP 36.4; O2SAT 94
[2021-02-07] MEDS: Enoxaparin 40 MG/0.4 ML Syringe SC (08:54)
[2021-02-07] MEDS: Famotidine 200 MG/20 ML MDV 20 MG in 0.9% Normal Saline (Pres. free 8 ML 300 MG IV (08:54)
[2021-02-07] MEDS: Potassium Chloride Oral Tablet 20 MEQ PO (08:54)
--- NOTE | 2021-02-07 09:03 | NURSING ---
FHT 126
[2021-02-07 09:11] LABS: Anion Gap 6 (5-15); BUN 2 mg/dL (7-18); BUN/Creat Ratio 3.6 RATIO (10-20); Calcium,Total 8.4 mg/dL (8.5-10.1); Chloride 110 mmol/L (98-107); Creatinine, Serum 0.55 mg/dL (0.55-1.02); EST Glomerular Filtration Rate 139 mL/min (>60); Est Glom Filt Rate - Afr Amer 168 mL/min (>60); Estimated Creatinine Clearance 152.25 ml/min; Glucose 88 mg/dL (74-106); Magnesium 1.5 mg/dL (1.6-2.6); Potassium 3.2 mmol/L (3.5-5.1); Sodium Level 143 mmol/L (136-145)
--- NOTE | 2021-02-07 09:33 | PN.OBGYN_ITS ---
Subjective Subjective Pt doing well. She states she is ready for discharge home and just has questions about nausea medication and baby ASA. No pain, vb, lof. She is also considering transfer of care to our office. Objective Data Objective Data Vital Signs: Vital Signs Temp Pulse Resp BP Pulse Ox 97.6 F L 99 16 130/76 H 94 02/07/21 08:45 02/07/21 08:45 02/07/21 08:45 02/07/21 08:45 02/07/21 08:45 Oxygen Delivery Method Room Air Weight: 274 lb 4.081 oz Body Mass Index (BMI) 41.7 Intake & Output: Intake and Output for Last 24 Hours 02/05/21 02/06/21 02/07/21 23:59 23:59 23:59 Intake Total 4339.17 / 4339.17 6107.0 / 6107.0 1510 / 1510 Output Total 200 / 200 Balance 4339.17 / 4339.17 5907.0 / 5907.0 1510 / 1510 Lab / Micro Data Result Diagrams: 02/06/21 05:52 02/07/21 06:55 Labs: Laboratory Results - last 24 hr 02/07/21 06:55: Total Bilirubin 0.50, Direct Bilirubin 0.20, AST 37, ALT 52, Alkaline Phosphatase 92, Total Protein 5.2 L, Albumin 2.1 L, Globulin 3.1 02/07/21 06:55: Sodium 143, Potassium 3.2 L, Chloride 110 H, Carbon Dioxide 27.0, Anion Gap 6, BUN 2 L, Creatinine 0.55, Estim Creat Clear Calc 152.25, Est GFR (MDRD) Af Amer 168, Est GFR (MDRD) Non-Af 139, BUN/Creatinine Ratio 3.6 L, Glucose 88, Calcium 8.4 L, Magnesium 1.5 L Micro: Microbiology 02/05/21 17:45 Interface Orders Legionella Antigen - Final 02/05/21 17:45 Interface Orders Streptococcus pneumoniae Antigen (M - Final 02/05/21 15:00 Mucosa - Nose Respiratory Panel (PCR) - Final Radiography Diagnostic Testing: Radiology Impression Venous Doppler Study 02/06/21 00:25 Interpretation Summary No evidence for acute deep venous thrombosis bilateral lower extremities with patent and compressible bilateral great saphenous veins. COVID-19 protocol utilized Ordering Physician: Geraldo Peña Referring Physician: MOLLY BLANCO Performed By: Krystal Powell, DANIELE, RVT Assessment & Plan (1) 19 weeks gestation of : PLAN: Pt desires discharge to home today, and has no complaints. She states the medicine team has cleared her for discharge. She would like a presc ription for Reglan. Discussed alternating Reglan and Zofran for now and rx's given. Recommend continuing Pepcid BID as well. Recommend starting baby ASA and continuing it throughout the . She has an anatomy US scheduled with her OB next week and an appointment - after that she may consider transferring care. Stable from a standpoint for discharge to home. (2) Obesity affecting : QUALIFIERS: Trimester: third trimester Qualified Code(s): O99.213 - Obesity complicating , third trimester (3) COVID-19: (4) Pneumonia due to 2019 novel coronavirus: (5) UTI (urinary tract infection):
--- NOTE | 2021-02-07 09:35 | CASEMGMT ---
Addendum entered by Yesi Gaines 02/07/21 11:21: Pt was first tested for COVID at [facility]. She emailed this RN CM result who forwarded to [facility]. Original Note: RN CM Assessment: Face to Face with pt for initial transition planning/care coordination assessment. RN CM introduced self and role at [facility], pt voices understanding and consents to assessment. Pt is A/O x4 and answers all questions appropriately at this time. Pt sitting up in bed on RA in no distress. Care providers, pharmacy, and demographics verified/updated. Admitting Dx: intractable vomiting, hypokalemia, 19 wks preg PCP:Kartik Specialists: Carmen, FREELANCE DISPLAYER Preferred [facility]acy: [facility] Insurance: [employer] Prescription Benefit: yes LW/HPOA: Pt denies having a LW/DPOA and denies need for info regarding AD. LNOK: Holly Tang, Living Arrangements: Pt lives with and son in a single story duplex with one step to enter. Pt reports she is I in ADL's and denies concerns at home. Transportation: Pt drives self and denies concerns with transportation. DME/HHC/SNF: Pt has a pulse ox at home, denies hx of HHC or SNF stays. Pt states no concerns with going home at time of dc. Pt states no further concerns/needs. CM to follow. Advised pt to ask CM if any further question/concerns/needs arise, voices understanding. Pt Goal: Home Plan: Home
--- NOTE | 2021-02-07 09:40 | DS.PCM_ITS ---
Providers Date of Admission: 02/06/21 Primary Care Physician: Dr. Douglas Verdugo DO Consultations 02/05/21 08:17 Consult: Hospitalist Routine Consulting Provider: Job Hahn Reason for Consult: covid EMERGENT Consult: No MD Notified: Yes Date Notified: 02/05/21 Time Notified: 08:42 Method of Notification: Verbal 02/05/21 10:18 Consult: Infectious Disease Routine Consulting Provider: Ran Snider Reason for Consult: covid EMERGENT Consult: No Notified: Yes Date Notified: 02/05/21 Time Notified: 10:18 Method of Notification: Verbal Reason For Visit: INTRACTABLE VOMITING, HYPOKALEMIA, 19 WEEKS PREG Diagnosis Discharge Diagnosis (1) 19 weeks gestation of : Status: Acute Code(s): Z3A.19 - 19 weeks gestation of (2) Obesity affecting : Status: Acute Code(s): O99.210 - Obesity complicating , unspecified trimester Qualifiers: Trimester: third trimester Qualified Code(s): O99.213 - Obesity complicating , third trimester (3) COVID-19: Status: Acute Code(s): U07.1 - COVID-19 (4) Pneumonia due to 2019 novel coronavirus: Status: Acute Code(s): U07.1 - COVID-19; J12.82 - Pneumonia due to coronavirus disease 2019 (5) UTI (urinary tract infection): Status: Acute Code(s): N39.0 - Urinary tract infection, site not specified Medications at Discharge Home Medications fluticasone propionate 50 mcg/actuation nasal spray,suspension 1 spray INTRANAS AL BID 11/01/19 acetaminophen 500 mg PO Q4H PRN PRN tab 11/18/19 ondansetron HCl [Zofran] 4 mg PO Q6H PRN 02/03/21 Unisom (doxylamine) 50 mg PO QHS 02/05/21 amoxicillin 500 mg PO TID 02/05/21 vitamin G40-sfovo acid 1 tab PO DAILY 02/05/21 famotidine [Pepcid] 20 mg PO BID #60 tab 02/07/21 metoclopramide HCl [Reglan] 5 mg PO .q 8 prn #30 tab 02/07/21 ondansetron HCl [Zofran] 4 mg PO Q8H PRN #30 tab 02/07/21 Hospital Course Operations None Procedures None Summary of Care Provided Hospital Course: Pt was admitted at 19 weeks gestation for Covid pneumonia, which was managed by the medicine team and ID was consulted. The pt declined Remdesivir and had received monoclonal antibodies prior to admission. She was requiring O2 through NC on admission due to hypoxia. She also had worsening nausea and vomiting. History of hyperemesis with symptoms worsening since Covid infection. She was given reglan, zofran and pepcid with improvement in her symptoms. Hypokalemia was noted and potassium was replaced. She was off supplemental oxygen and tolerating PO on day of discharge. She was discharged home in good condition with follow up in a few days at her OB's office. She was instructed to start a baby ASA. Weight / BMI Weight Weight: 274 lb 4.081 oz Body Mass Index (BMI) 41.7 ABG / Lab / Microbiology Data Result Diagrams: 02/06/21 05:52 02/07/21 06:55 Laboratory: Laboratory Results - last 24 hr 02/07/21 06:55: Total Bilirubin 0.50, Direct Bilirubin 0.20, AST 37, ALT 52, Alkaline Phosphatase 92, Total Protein 5.2 L, Albumin 2.1 L, Globulin 3.1 02/07/21 06:55: Sodium 143, Potassium 3.2 L, Chloride 110 H, Carbon Dioxide 27.0, Anion Gap 6, BUN 2 L, Creatinine 0.55, Estim Creat Clear Calc 152.25, Est GFR (MDRD) Af Amer 168, Est GFR (MDRD) Non-Af 139, BUN/Creatinine Ratio 3.6 L, Glucose 88, Calcium 8.4 L, Magnesium 1.5 L Microbiology: Microbiology 02/05/21 17:45 Interface Orders Legionella Antigen - Final 02/05/21 17:45 Interface Orders Streptococcus pneumoniae Antigen (M - Final 02/05/21 15:00 Mucosa - Nose Respiratory Panel (PCR) - Final Radiography Diagnostic Testing: Radiology Impression Venous Doppler Study 02/06/21 00:25 Interpretation Summary No evidence for acute deep venous thrombosis bilateral lower extremities with patent and compressible bilateral great saphenous veins. COVID-19 protocol utilized Ordering Physician: Geraldo Peña Referring Physician: DOUGLAS VERDUGO Performed By: Krystal Powell, DANIELE, RVT Meaningful Use Info Meaningful Use Diagnoses (Choose all that apply): None applicable Discharge Plan Admission Admit Date/Time: 02/06/21 07:55 Attending Provider: Maura Egan Primary Care Provider: Douglas Verdugo Consulting Providers: Job Hahn ; Ran Snider Discharge Orders/Prescriptions Prescriptions: New ondansetron HCl [Zofran] 4 mg tablet 4 mg PO Q8H PRN (Reason: nausea and vomiting) Qty: 30 RF: 0 metoclopramide HCl [Reglan] 5 mg tablet 5 mg PO .q 8 prn Qty: 30 RF: 0 famotidine [Pepcid] 20 mg tablet 20 mg PO BID Qty: 60 RF: 0 Continued fluticasone propionate 50 mcg/actuation spray,suspension 1 spray INTRANASAL BID RF: 0 acetaminophen 500 MG tablet 500 mg PO Q4H PRN PRN (Reason: Pain Score 1-5/10) RF: 0 ondansetron HCl [Zofran] 4 mg Tablet 4 mg PO Q6H PRN (Reason: Nausea And Vomiting) RF: 0 Unisom (doxylamine) 25 mg Tablet 50 mg PO QHS RF: 0 vitamin V86-xeqhz acid 0.5-1 mg Tablet 1 tab PO DAILY RF: 0 amoxicillin 500 mg capsule 500 mg PO TID RF: 0 Discontinued promethazine [Phenergan] 25 mg Tablet 25 mg PO Q6H PRN (Reason: Nausea And Vomiting) RF: 0 Referrals / Follow Up: Douglas Verdugo DO [Primary Care Provider] - Disposition Disposition (needs filled in before D/C Order can be placed): Home, Self Care
[2021-02-07] MEDS: Potassium Chloride Oral Tablet 20 MEQ 60 MEQ PO (10:49)
== END 2021-02-07 11:47 | disposition home or self-care (01) | DRG 831 ==
LOC: ED 02-05 00:06 → MS3 02-05 08:41
PROVIDERS: Internal Medicine; Obstetrics & Gynecology; Admitting Provider Obstetrics & Gynecology; Emergency Provider Emergency Medicine; PCP Student in an Organized Health Care Education/Training Program; Visit Provider Obstetrics & Gynecology
DX: O98.512 Other viral diseases complicating pregnancy, second trimester (principal); U07.1 COVID-19; J12.82 Pneumonia due to coronavirus disease 2019; O23.42 Unspecified infection of urinary tract in pregnancy, second trimester; N39.0 Urinary tract infection, site not specified; O21.9 Vomiting of pregnancy, unspecified; O99.212 Obesity complicating pregnancy, second trimester; E66.9 Obesity, unspecified; O99.282 Endocrine, nutritional and metabolic diseases complicating pregnancy, second trimester; E87.6 Hypokalemia; Z3A.19 19 weeks gestation of pregnancy; Z28.3 Underimmunization status; Z87.891 Personal history of nicotine dependence
CPT/HCPCS: 36415; 71045; 80048; 80053; 80076; 81001; 82248; 82550; 83605; 83615; 83735; 83880; 84145; 85025; 85379; 85384; 87449; 87633; 93970; 99285; 99406; J7030; J7120; A4216; J2405; J3490

== ENCOUNTER → 2022-09-08 | Outpatient (CLI) | payer OTHER, SELFPAY ==
[2022-09-08 15:14] LABS: Absolute Lymphocyte Count 1.81 X10^3/uL (0.83-4.51); Absolute Neutrophil Count 3.6 X10^3/uL (2.0-7.7); Basophil# 0.04 X10^3/uL; Basophil% 0.7 % (0-1); Eosinophil# 0.13 X10^3/uL; Eosinophils% 2.2 % (0-5); Hematocrit 38.4 % (37-47); Hemoglobin 12.9 g/dL (12.0-15.0); Lymphocyte # 1.81 X10^3/ul (0.83-4.51); Lymphocyte % 30.9 % (19-41); Mean Corp Hgb Conc 33.6 g/dL (32-36); Mean Corpuscular Hgb 27.9 pg (27.0-32.0); Mean Corpuscular Volume 82.9 fL (81-99); Mean Platelet Vol. 9.3 fl (6.2-12.0); Monocyte# 0.31 X10^3/uL; Monocyte% 5.3 % (0-10); NRBC Flagged by Analyzer 0 % (0-5); Neutrophil # 3.55 X10^3/uL (2.7-7.7); Neutrophil % 60.6 % (47-70); Platelet Count 250 K/mm3 (150-450); RBC Distribution Width CV 13.4 % (11.6-14.6); RBC Distribution Width SD 39.9 fl (35.1-43.9); Red Blood Count 4.63 M/mm3 (4.2-5.4); White Blood Count 5.9 K/mm3 (4.4-11.0)
[2022-09-08 15:53] LABS: T3 Total - Triiodothyronine 1.41 ng/mL (0.6-1.81); Vitamin D,25 Hydroxy 25.2 ng/mL
[2022-09-08 16:27] LABS: ALB/GLOB Ratio 1.1 RATIO (0.9-2.4); AST(SGOT) 14 U/L (15-37); Alanine Aminotransfer ALT/SGPT 28 U/L (13-56); Albumin, Serum 3.4 g/dL (3.2-5.0); Alkaline Phosphatase 137 U/L (45-117); Anion Gap 7 (5-15); BUN 7 mg/dL (7-18); Calcium,Total 8.7 mg/dL (8.5-10.1); Chloride 109 mmol/L (98-107); Creatinine, Serum 0.88 mg/dL (0.55-1.02); EST Glomerular Filtration Rate 80 mL/min (>60); Est Glom Filt Rate - Afr Amer 97 mL/min (>60); Globulin 3.1 g/dL (2.2-4.2); Glucose 114 mg/dL (74-106); Potassium 3.6 mmol/L (3.5-5.1); Protein, Total 6.5 g/dL (6.4-8.2); Sodium Level 137 mmol/L (136-145); T4 Free Direct 0.88 ng/dL (0.76-1.46); Thyroid Stim Hormone (TSH) 2.22 uIU/mL (0.358-3.74)
[2022-09-12 21:07] LABS: Testosterone, Free 0.42 ng/dL (0.10-0.85); Testosterone, Total 16 ng/dL (13-71)
== END | disposition home or self-care (01) ==
LOC: BIMLAB 13:47
PROVIDERS: PCP Internal Medicine; Referring Provider Internal Medicine; Visit Provider Internal Medicine
DX: F32.2 Major depressive disorder, single episode, severe without psychotic features (principal); F41.9 Anxiety disorder, unspecified; E55.9 Vitamin D deficiency, unspecified; Z86.39 Personal history of other endocrine, nutritional and metabolic disease; E66.9 Obesity, unspecified
CPT/HCPCS: 36415; 80053; 82306; 82627; 84402; 84403; 84439; 84443; 84480; 85025; 82626

== ENCOUNTER → 2022-11-11 | Outpatient (CLI) | payer OTHER, SELFPAY ==
[2022-11-13 15:08] LABS: HPV APTIMA, High Risk Negative (Negative)
== END | disposition home or self-care (01) ==
LOC: LABSPEC 11:19
PROVIDERS: PCP Internal Medicine; Referring Provider Nurse Practitioner Women's Health; Visit Provider Nurse Practitioner Women's Health
DX: Z12.4 Encounter for screening for malignant neoplasm of cervix (principal)
CPT/HCPCS: 87624; 88175; G0145

== ENCOUNTER → 2023-01-01 | Outpatient (CLI) | payer OTHER, SELFPAY ==
--- NOTE | 2023-01-01 16:22 | US_ITS ---
STUDY: ULTRASOUND OF THE FEMALE PELVIS - LIMITED REASON FOR EXAM: Female, 32 years old bleeding-heavy x 1 year TECHNIQUE: Transabdominal and Transvaginal TECHNICAL QUALITY: Adequate. COMPARISON: None. FINDINGS: The uterus is anteverted and is in a midline position. The uterus measures 10.2 x 6.0 x 4.5 cm. Normal uterine cervix. The endometrium measures 9 mm in thickness, and is hyperechoic. There is no demonstrated endometrial mass. There is no demonstrated myometrial mass. The right ovary measures 3.5 x 2.3 x 1.6 cm. There is no right ovarian cyst or ovarian mass. There is no visualized right adnexal mass or complex lesion. There is normal arterial and normal venous vascularity. The left ovary measures 3.3 x 3.2 x 2.0 cm. There is no left ovarian cyst or ovarian mass. There is no visualized left adnexal mass or complex lesion. There is normal arterial and normal venous vascularity. There is no fluid in the cul-de-sac. 1.2 cm cyst in the cul-de-sac. US/Pelvic w/ Transvaginal IMPRESSION: Normal female pelvis. Tiny cyst in the cul-de-sac of doubtful significance. Electronically Signed: Jefferson Bailey MD at 22:24 EDT ,
== END | disposition home or self-care (01) ==
LOC: OPUS 16:20 → US 16:21
PROVIDERS: PCP Internal Medicine; Referring Provider Nurse Practitioner Women's Health; Visit Provider Nurse Practitioner Women's Health
DX: N92.0 Excessive and frequent menstruation with regular cycle (principal)
CPT/HCPCS: 76830; 76856

== ENCOUNTER 2023-03-10 10:09 | Day surgery (SDC) | payer OTHER, SELFPAY ==
[2023-03-03 15:09] LABS: Hematocrit 40.1 % (37-47); Hemoglobin 12.6 g/dL (12.0-15.0); Mean Corp Hgb Conc 31.4 g/dL (32-36); Mean Corpuscular Volume 85.9 fL (81-99); Mean Platelet Vol. 9.5 fl (6.2-12.0); Platelet Count 225 K/mm3 (150-450); RBC Distribution Width CV 13.5 % (11.6-14.6); RBC Distribution Width SD 41.8 fl (35.1-43.9); Red Blood Count 4.67 M/mm3 (4.2-5.4); White Blood Count 5.6 K/mm3 (4.4-11.0)
[2023-03-03 15:31] LABS: Thyroid Stim Hormone (TSH) 1.95 uIU/mL (0.358-3.74)
[2023-03-10 10:27] VITALS: BP 136/84; PULSE 65; RESP 16; TEMP 36.3; O2SAT 98; BMI 41.0
[2023-03-10] MEDS: Lactated Ringers 1,000 ML 15 ML IV (10:36)
[2023-03-10 10:44] LABS: Internal QC Validated? YES +Cl - CLEAR BKGD; Pregnancy, Urine Negative Negative
--- NOTE | 2023-03-10 11:50 | FALS_PTH ---
PATHOLOGY RESULTS PATIENT: YOUNG SANTA LOC: [facility] [place] U#:[id number] AGE/SX: 32/F ROOM: RE03/10/[address]: Dr. Carla River MD : 1990 BED: DIS: 03/10/2023 SPEC #: [id number] RECD: 03/10/23 13:42 STATUS: RIANA REMaryanne #: [id number] LATA: 03/10/23 11:[address]: Carla River DEPT: SURGICAL PATHOLOGY RECD BY: Carmela Arrington ENTERED: 03/11/23 09:00 SP TYPE: FALL TUBES OTHR DR: Dr. Kimberlyn Key MD Tissues: Fallopian tube Procedures: Surgery Specimen Level IV HEADER OPERATION: Laparoscopic salpingectomy PRE-OP DIAGNOSIS: Contraception management, menorrhagia TISSUE SUBMITTED: Bilateral fallopian tubes MICROSCOPIC DIAGNOSIS Right and left fallopian tubes, bilateral salpingectomies: Complete cross-sections of fallopian tubes with benign paratubal cysts. AM:edwina 03/12/2023 MICROSCOPIC DESCRIPTION Slides are reviewed. GROSS DESCRIPTION Received in fixative is one container labeled with the patient's name and designated bilateral fallopian tubes. The specimen consists of bilateral fallopian tubes including fimbrial ends measuring 5.0 cm in length and 0.6 cm in diameter and 7.0 cm in length and 0.5 cm in diameter. The fallopian tubes are not identified as right or left. Sections reveal unremarkable cut surfaces. One of the fallopian tubes show a paratubal cyst measuring 0.6 cm in greatest dimension. The second fallopian tube shows two paratubal cysts measuring 0.7 and 1.0 cm in greatest dimension. Aircraft Structure Mechanic sections are submitted in two cassettes as follows: 1 - one fallopian tube and one paratubal cyst, 2 - second fallopian and two paratubal cysts. / SJ:edwina 03/11/2023 TC:5 CPT: 41389 x2
--- NOTE | 2023-03-10 12:25 | HP.PCM_ITS ---
History and Physical Date of Admission: 03/10/23 Intake Vital Signs 01/19/2311:33 01/28/2312:30 02/14/2308:28 02/14/2308:33 Height 5 ft 8 in 5 ft 8 in 5 ft 8 in 5 ft 8 in Weight: 280 lb 4 oz BMI 42.6 BP 124/82 H Intake Visit Reasons: consult BS Chief Complaint: Consult BS Top Frame Maker Required: No Is patient in pain?: No Allergies escitalopram [From Lexapro] Allergy (Mild, Verified 02/13/23 08:28) Diarrhea Medications levonorgestrel-ethinyl estradiol 0.1 mg-20 mcg tablet (Aviane) 1 tab PO QDAY #28 tabs 01/19/23 [Rx Confirmed 02/13/23] bupropion HCl 150 mg 24 hr tablet, extended release (Wellbutrin XL) 150 mg PO QAM #30 tabs 01/27/23 [Rx Confirmed 02/13/23] hydroxyzine HCl 25 mg tablet 25 mg PO TID PRN anxiety #90 tabs 01/27/23 [Rx Confirmed 02/13/23] Is last menstrual period known: Yes Last Menstrual Period: 02/06/23 Post menopausal: No Patient : No : No PFSH Medical History Acute hypokalemia Anxiety and depression COVID-19 Deviated nasal septum Environmental allergies Graves disease Alejandrina's thyroiditis Hypoxia Major depression PID (pelvic inflammatory disease) PTSD (post-traumatic stress disorder) Surgical History H/O nasal septoplasty History of adenoidectomy History of ear surgery Hx of appendectomy Family History Aunt Cancer ovarian Thyroid disorderGrandfather Heart disease Arthritis Myocardial infarction, Onset Age: 50Grandmother Thyroid disorder Autoimmune disease Diabetes Myocardial infarction, Onset Age: 76 Heart disease Kidney disease Liver disease CVA (cerebral vascular accident)Father Alcoholism Anxiety Arthritis Hypertension Thyroid disorderMother Anxiety DVT (deep venous thrombosis) Hypertension Essential thrombocytopeniaSister Anxiety Depression Psychiatric care Bipolar 1 disorderSister AnxietyGrandmother Mental disorder bipolar Social History household members: spouse and children number of children: 2 current occupational status: employed current occupation: [employer] Smoking Status: Current every day smoker tobacco type: e-cigarettes Electronic Cigarette Use: with nicotine quit status: considering quitting alcohol intake: never substance use type: does not use caffeine: Yes what type of physical activity do you participate in: walking frequency: 3-4 times per week seatbelt use: always do you feel safe at home: Yes additional social history: -Oswaldoequan HPI consult BS Details: YOUNG SANTA is a 32 year old who presents for preop consult she wants to have sterilization. she and her have been discussing this for a long time and she originally was supposed to have it post delivery and she decided to wait. she denies any irregular bleeding, she is on an ocp with regular periods and she denies pain. Female Reproductive History Last Menstrual Period: 02/06/23 Menopausal Symptoms: No night sweats History 2 Elective abortions Hx Para 2 Spontaneous abortions Hx # Term Pregnancies Ectopic pregnancies Hx # Pregnancies Multiple births # of living children 2 Past Pregnancies Del. Date Name GA/Weeks Outcome Route Bth Weight Infant Gen Labor Lgth Anesthesia Del Locatn Provider FOB Unknown 2012 Tarik Unknown Giannis 2021 39 live - full term 7lbs 8.1oz Male epidu [facility] Lang ROS Const Constitutional: Denies fatigue, night sweats, weight gain or weight loss ENT ENT: Reports system reviewed and no additional complaints, except as documented Cardio Card: Denies chest pain Resp Resp: Denies cough or dyspnea GI GI: Reports as per HPI; Denies abdominal pain, constipation, nausea or vomiting : Denies nipple discharge, urinary frequency, urinary incontinence, urinary hesitancy, urinary urgency, vaginal discharge, vaginal dryness, vaginal odor or vaginal pruritus Musc Musc: Denies arthralgias, back pain or muscle weakness Skin Skin/Breast: Denies alopecia, change in hair, dry skin, breast mass, breast pain, breast skin changes or nipple discharge Neuro Neuro: Reports system reviewed and no additional complaints, except as documented Psych Psych: Reports system reviewed and no additional complaints, except as documented Endo Endo: Denies cold intolerance, excessive sweating, heat intolerance or polydipsia Salvador/Lymph Hematologic/Lymphatic: Denies easy bleeding, Denies easy bruising and Denies lymphadenopathy Exam Const General: cooperative, healthy appearing, comfortable and no acute distress Orientation: alert HENMT Head: normal to inspection and normocephalic Ears: hearing grossly normal bilaterally and external ears normal Nose: external nose normal and nares normal Face and sinus: normal facial exam Neck Neck: normal visual inspection and no lymphadenopathy Thyroid: thyroid normal Chest Chest palpation & inspection: normal inspection of the chest Resp Effort & Inspection: normal respiratory effort Auscultation: clear to auscultation bilaterally Cardio Rate: regular rate Rhythm: regular rhythm Heart Sounds: S1 normal and S2 normal GI Inspection: normal to inspection and non-distended Palpation: soft and no hepatosplenomegaly Musc Other: gross motor intact no deficits, full bilateral strength Skin General: no rashes or lesions noted Neuro General: patient alert, patient awake, moves all extremities and no focal motor deficits Motor: muscle tone normal throughout Extrem General: normal to inspection and no pedal edema Psych Appearance: grossly normal Mental Status: mental status grossly normal Affect: normal affect Speech and Movement: speech and movement normal Coding Level of Care Code Off vis,est,level 4 Diagnoses Encounter for other contraceptive management Z30.8 Contraceptive encounter type: other encounter for contraceptive management Menorrhagia with regular cycle N92.0 Assessment and Plan Assessment and Plan (1) Contraception management: Status: Acute Qualifiers: Contraceptive encounter type: other encounter for contraceptive man agement Qualified Code(s): Z30.8 - Encounter for other contraceptive management Comment: wants bilateral salpingectomy (2) Menorrhagia with regular cycle: Status: Acute Comment: Failed IUD and nuvaring. Needs contraception. US WNL. Aviane start; consider lysteda after BS Plan After discussing the patient's diagnosis and treatment plan options, patient wishes to proceed with surgical management. I have discussed with the patient the risks, benefits, and alternatives of the procedure which include but are not limited to risks of anesthesia, bleeding, infection, possible damage to bowel, bladder, or surrounding vasculature which could lead to additional surgery to evaluate any complications. Patient agrees to procedure and wishes to proceed. ACOG/uptodate references given for additional information regarding procedure. Plan Details UPDATE- I have seen the patient and performed any clinically relevant updates to the history and physical exam. Carla River MD
--- NOTE | 2023-03-10 13:02 | PCM.OPRPT ---
Problems Associated Problem List Diagnoses (1) Contraception management: Report of Operation Date of Procedure: 03/10/23 Pre-Operative Diagnosis: see problem list Post-Operative Diagnosis: same Surgery/Procedure Performed:: laparoscopic bilateral salpingectomy Description of Surgical Findings:: nl uterus tubes ovaries Surgeon: Carla River Type of Anesthesia: General and Local Specimen's removed: tubes Drains: none Estimated Blood Loss (mL): 50 Fluids Replaced: crystalloid Description of Procedure: Patient was taken in the operating room and was placed under general anesthesia was prepped and draped in normal sterile fashion in the dorsal lithotomy position. Bladder was drained of clear urine and SCDs were on preoperatively. Uterus was sounded and a uterine manipulator was placed after dilating. Attention was then paid to the abdominal portion of the procedure and the umbilicus was elevated with towel clamps and injected with Marcaine and after a 5 mm incision was made and the Veress needle was entered into the abdomen confirmed to be intra-abdominal with a low opening pressure of less than 5 mmHg. Abdomen was insufflated with CO2 gas and a 5 mm optical trocar was placed under direct visualization. A 5 mm port suprapubically was placed under direct visualization. Uterus was well visualized and bilateral fallopian tubes identified and bilateral tubes were elevated and transecting across the mesosalpinx and the attachment to the uterine corpus bilaterally the tubes were removed without complication. Excellent hemostasis was noted. Fallopian tubes were removed through the lower port site without complication. Liver and upper abdomen were visualized notably within normal limits and no other gross abnormalities were seen in the abdomen. All instruments removed from the abdomen after gas was desufflated. Port sites were closed with 3-0 Monocryl Steri's and op sites were applied. All instruments removed from the vagina and patient was awoken and taken recovery in stable condition. Grafts/Implants Used: none Procedure Start Time: 13:05 Procedure Stop Time: 13:22 Complications none Admit VTE Documentation VTE Present on Admission: No VTE Mechan Device Prophylaxis: SCD's Multi Select Codes Urinary/Genital Urinary/Genital CPT Codes: 01087 Laproscopic BS/O
[2023-03-10] MEDS: Bupivacaine 0.25% 30 ML Vial (13:10)
--- NOTE | 2023-03-10 13:21 | PCM.DC ---
Discharge Instructions Diet Discharge Diet: No restrictions Activity Discharge Activity: Return to Normal Activity, May Not Drive (for 2 weeks or while taking narcotic pain meds.), May Shower and May Take a Tub Bath (in 7 days) May resume sexual activity in: 1 week Weight Bearing Status: Full weight bearing Dressing / Incision Call your doctor if your incision/area has: Continuous Slow Oozing, Sudden Increased Bleeding, Increased Pain/ Swelling, Increased Redness and Foul Smelling Discharge Call your doctor if you observe: Fever of 101 or Higher, Using more than 1 pad per hour, Shortness of breath, Chest pain and Uncontrolled pain Suture Line Care: Avoid Pulling/Pushing and Avoid Pinching/Bending Remove Dressing in: 1 week (if present) Cleanse incision/area with: Soap & Water and Keep Dressing Clean & Dry Follow Up Care When: Call to make an appointment with your doctor for a fu/incision check in 1-2 weeks. Test Results: Test results from this visit will be discussed in further detail at your follow-up appointment, if applicable. Discharge Plan Admission Attending Provider: Carla River Primary Care Provider: Kimberlyn Key Discharge Orders/Prescriptions Prescriptions: New oxycodone-acetaminophen [Percocet] 5-325 mg tablet 1 tab PO Q6H PRN (Reason: pain) 7 Days Qty: 10 0RF naproxen [naproxen] 500 mg tablet 500 mg PO BID PRN PRN (Reason: Pain) Qty: 30 1RF No Action levonorgestrel-ethinyl estrad [Aviane] 0.1-20 mg-mcg tablet 1 tab PO QDAY Qty: 28 4RF hydroxyzine HCl 25 mg tablet 25 mg PO TID PRN (Reason: anxiety) Qty: 90 1RF bupropion HCl [Wellbutrin XL] 150 mg tablet extended release 24 hr 150 mg PO QAM Qty: 30 2RF vilazodone 20 mg tablet 20 mg PO DAILY Qty: 30 2RF Rx Instructions: must administer with a meal/food Referrals / Follow Up: Kimberlyn Key MD [Primary Care Provider] - Disposition Disposition (needs filled in before D/C Order can be placed): Home, Self Care
[2023-03-10 13:35] VITALS: BP 136/84; BP 140/87; PULSE 82; RESP 16; TEMP 36.2; O2SAT 95
[2023-03-10 13:40] VITALS: BP 123/68; BP 136/84; PULSE 74; RESP 16; O2SAT 96
[2023-03-10 13:45] VITALS: BP 113/70; BP 136/84; PULSE 71; RESP 16; O2SAT 94
[2023-03-10 13:50] VITALS: BP 115/69; BP 136/84; PULSE 68; RESP 16; TEMP 36.2; O2SAT 97
[2023-03-10 14:24] VITALS: BP 136/84
== END 2023-03-10 14:28 | disposition home or self-care (01) ==
LOC: SDC 10:09 → AC 10:11
PROVIDERS: Anesthesiology; PCP Internal Medicine; Referring Provider Obstetrics & Gynecology; Visit Provider Obstetrics & Gynecology
PROC: (CPT 58661; principal; 2023-03-10 11:35)
DX: Z30.8 Encounter for other contraceptive management (principal); N92.0 Excessive and frequent menstruation with regular cycle; Z86.16 Personal history of COVID-19; F17.210 Nicotine dependence, cigarettes, uncomplicated; N83.8 Other noninflammatory disorders of ovary, fallopian tube and broad ligament; F43.10 Post-traumatic stress disorder, unspecified; F41.8 Other specified anxiety disorders; Z90.49 Acquired absence of other specified parts of digestive tract; E06.3 Autoimmune thyroiditis
CPT/HCPCS: 58661; 00840; 36415; 81025; 84443; 85027; 86850; 86900; 86901; 88302; 88305; J7120; J2405

== ENCOUNTER → 2023-03-19 | Outpatient (CLI) | payer OTHER, SELFPAY ==
--- OUTSIDE RECORDS SUMMARY | 2023-03-19 17:09 | XMS RPT_ITS | CCD ---
Author Name Unknown Address [id number] [place] [address] Organization [facility] Care Team Providers Care Abattoir Supervisor Name Role Phone DOUGLAS BLANCO DO Primary Care Physician Douglas Blanco DO Primary Care Provider [phone] DOUGLAS BLANCO DO Primary Care Physician Allergies Allergy Classification Reported Allergen(s) Allergy Type Date of Onset Reaction(s) Facility (16 sources) Escitalopram; Translations: [escitalopram] Drug Allergy Nausea and vomiting (disorder) [facility] [place] (1 source) Citalopram Drug Allergy 2 Other: See Comments [facility] Work Phone: (1 source) Escitalopram Drug Allergy 6 GI Upset [facility] Work Phone: (1 source) FLUoxetine Drug Allergy 8 Other: See Comments [facility] Work Phone: (1 source) Sertraline Drug Allergy 7 GI Upset [facility] Work Phone: Medications Current Medications Medication Drug Class(es) Dates Sig (Normalized) Sig (Original) acetaminophen 325 mg oral capsule (16 sources) Start: 06-22-2021 Tylenol 325 mg oral capsule Dose : 650 mg =, Oral, q6h, PRN Pain, scale 1-3, 0 Refill(s) Start Date: 06/22/21 Status: Ordered Completed/Discontinued Medications Medication Drug Class(es) Dates Sig (Normalized) Sig (Original) >Blood Pressure Cuff Home (1 source) Start: 01-25-2018 End: 07-31-2021 >Blood Pressure Cuff Home Indications: Labile blood pressure HOME BP CUFF, DX: HTN LABILE 1 Each 0 01/25/2018 07/31/2021 Discontinued Problems Active Problems Problem Classification Problem Date Documented Da te Episodic/Chronic Anxiety disorders (16 sources) Anxiety 05-08-2020 Chronic Calculus of urinary tract (15 sources) Kidney stone 05-08-2020 Episodic Diabetes or abnormal glucose tolerance complicating ; childbirth; or the puerperium (2 sources) Gestational diabetes mellitus, class A>2< ; Translations: [Gestational diabetes mellitus, class A>1<] 06-21-2021 Episodic Disorders of lipid metabolism (1 source) Dyslipidemia; Translations: [Hyperlipidemia, unspecified] Chronic Inflammatory diseases of female pelvic organs (16 sources) Female pelvic inflammatory disease 11-09-2013 Episodic Malaise and fatigue (1 source) Fatigue; Translations: [Other fatigue] Episodic Miscellaneous mental health disorders (1 source) depression; Translations: [ depression] Episodic Mood disorders (16 sources) Depressive disorder 05-08-2020 Chronic Nutritional deficiencies (2 sources) Vitamin D deficiency; Translations: [Vitamin D deficiency, unspecified] Onset: 06-27-2013 Chronic Other complications of (1 source) Mild hyperemesis gravidarum; Translations: [Mild hyperemesis gravidarum] Onset: 02-01-2021 Episodic Other complications of (1 source) Complication of , childbirth and/or the puerperium; Translations: [Other specified diseases and conditions complicating ] Onset: 06-05-2021 Episodic Other nutritional; endocrine; and metabolic disorders (1 source) Cholesterol level - finding; Translations: [Lipoprotein deficiency] Onset: 06-27-2013 06-27-2013 Chronic Thyroid disorders (20 sources) Graves' disease; Translations: [Hypothyroidism] 05-08-2020 Chronic Past or Other Problems Problem Classification Problem Date Documented Da te Episodic/Chronic Other and delivery including normal (20 sources) Normal ; Translations: [] Onset: 09-21-2020 11-05-2020 Episodic Results Test Name Value Interpretation Reference Range Facil ity Vital Signs Date Time Vital Sign Value Performing Clinician Facility 07-31-2021 10:28-0400 Body weight 122.02 kg Artikatrin Fengman L[employer]INATED P[employer] ASSEMBLER AND [employer]UER.FRONT DESK RECEPTIONIST Work Phone: [facility] 07-31-2021 10:28-0400 Diastolic blood pressure 86 mm[Hg] Arti Dima LAMINATED PLAST[employer] ASSEMBLER AND GLUER.FR[employer] DESK RECEPTIONIST Work Phone: [facility] 07-31-2021 10:28-0400 Heart rate 85 /min Arti Dima LAM[employer]ATED P[employer] ASSEM[employer]ER AND [employer]UER.FR[employer] DESK RECEPTIONIST Work Phone: [facility] 07-31-2021 10:28-0400 Respiratory rate 16 /min Arti Dima LAMINATED P[employer] ASSEMBLER AND [employer]UER.FR[employer] DESK RECEPTIONIST Work Phone: [facility] 07-31-2021 10:28-0400 SaO2% (BldA) [Mass fraction] 97 % Arti Fengman LAMINATED PLAST[employer] ASSEMBLER AND GLUER.FRONT DESK RECEPTIONIST Work Phone: [facility] 07-31-2021 10:28-0400 Systolic blood pressure 124 mm[Hg] Arti Fengman LAMINATED P[employer] ASSEMBLER AND GLUER.FR[employer] DESK RECEPTIONIST Work Phone: [facility] 06-23-2021 12:35-0400 Body temperature 98.06 [degF] SANDHYA BOLTON MD [facility] 06-23-2021 12:35-0400 Diastolic blood pressure 74 mm[Hg] SANDHYA BOLTON MD [facility] 06-23-2021 12:35-0400 Heart rate 88 /min SANDHYA BOLTON MD [facility] 06-23-2021 12:35-0400 Mean blood pressure 89 mm[Hg] SANDHYA BOLTON MD [facility] 06-23-2021 12:35-0400 Respiratory rate 18 /min SANDHYA BOLTON MD [facility] 06-23-2021 12:35-0400 Systolic blood pressure 120 mm[Hg] SANDHYA BOLTON MD [facility] 06-22-2021 23:00-0400 Body temperature 98.78 [degF] SANDHYA BOLTON MD [facility] 06-22-2021 23:00-0400 Diastolic blood pressure 53 mm[Hg] SANDHYA BOLTON MD [facility] 06-22-2021 23:00-0400 Heart rate 70 /min SANDHYA BOLTON MD [facility] 06-22-2021 23:00-0400 Mean blood pressure 74 mm[Hg] SANDHYA BOLTON MD [facility] 06-22-2021 23:00-0400 Respiratory rate 18 /min SANDHYA BOLTON MD [facility] 06-22-2021 23:00-0400 Systolic blood pressure 116 mm[Hg] SANDHYA BOLTON MD [facility] 06-22-2021 08:00-0400 Body temperature 97.88 [degF] SANDHYA BOLTON MD [facility] 06-22-2021 08:00-0400 Diastolic blood pressure 80 mm[Hg] SANDHYA BOLTON MD [facility] 06-22-2021 08:00-0400 Heart rate 80 /min SANDHYA BOLTON MD [facility] 06-22-2021 08:00-0400 Mean blood pressure 96 mm[Hg] SANDHYA BOLTON MD [facility] 06-22-2021 08:00-0400 Systolic blood pressure 128 mm[Hg] SANDHYA BOLTON MD [facility] 06-22-2021 03:24-0400 Reason For Taking VItal Signs SANDHYA BOLTON MD [facility] 06-21-2021 17:46-0400 Body temperature 97.88 [degF] SANDHYA BOLTON MD [facility] 06-21-2021 17:07-0400 Body temperature 97.88 [degF] SANDHYA BOLTON MD [facility] 06-21-2021 16:32-0400 Body temperature 97.52 [degF] SANDHYA BOLTON MD [facility] 06-21-2021 06:08-0400 Body height 172 cm SANDHYA BOLTON MD [facility] 06-21-2021 06:08-0400 Body weight 131 kg SANDHYA BOLTON MD [facility] 06-21-2021 06:08-0400 Body weight 44.28 kg/m2 SANDHYA BOLTON MD [facility] 06-05-2021 12:00-0400 Body temperature 97.7 [degF] MAGDY SANTAMARIA MD [facility] 06-05-2021 12:00-0400 Diastolic blood pressure 78 mm[Hg] MAGDY SANTAMARIA MD [facility] 06-05-2021 12:00-0400 Heart rate 88 /min MAGDY SANTAMARIA MD [facility] 06-05-2021 12:00-0400 Mean blood pressure 95 mm[Hg] MAGDY SANTAMARIA MD [facility] 06-05-2021 12:00-0400 Systolic blood pressure 130 mm[Hg] MAGDY SANTAMARIA MD [facility] 06-05-2021 11:28-0400 Body height 172.7 cm MAGDY SANTAMARIA MD [facility] 06-05-2021 11:28-0400 Body weight 131 kg MAGDY SANTAMARIA MD [facility] 06-05-2021 11:28-0400 Body weight 43.92 kg/m2 MAGDY SANTAMARIA MD [facility] 06-05-2021 10:51-0400 Body temperature 97.16 [degF] MAGDY SANTAMARIA MD [facility] 06-05-2021 10:51-0400 Diastolic blood pressure 81 mm[Hg] MAGDY SANTAMARIA MD [facility] 06-05-2021 10:51-0400 Heart rate 90 /min MAGDY SANTAMARIA MD [facility] 06-05-2021 10:51-0400 Mean blood pressure 98 mm[Hg] MAGDY SANTAMARIA MD [facility] 06-05-2021 10:51-0400 Respiratory rate 20 /min MAGDY SANTAMARIA MD [facility] 06-05-2021 10:51-0400 Systolic blood pressure 132 mm[Hg] MAGDY SANTAMARIA MD [facility] 05-20-2021 18:10-0400 Diastolic blood pressure 89 mm[Hg] JAMEEL CARO MD [facility] 05-20-2021 18:10-0400 Heart rate 85 /min JAMEEL CARO MD [facility] 05-20-2021 18:10-0400 Mean blood pressure 106 mm[Hg] JAMEEL CARO MD [facility] 05-20-2021 18:10-0400 Systolic blood pressure 141 mm[Hg] JAMEEL CARO MD [facility] 05-20-2021 17:41-0400 Diastolic blood pressure 70 mm[Hg] JAMEEL CARO MD [facility] 05-20-2021 17:41-0400 Heart rate 85 /min JAMEEL CARO MD [facility] 05-20-2021 17:41-0400 Mean blood pressure 91 mm[Hg] JAMEEL CARO MD [facility] 05-20-2021 17:41-0400 Systolic blood pressure 134 mm[Hg] JAMEEL CARO MD [facility] 05-20-2021 17:30-0400 Diastolic blood pressure 70 mm[Hg] JAMEEL CARO MD [facility] 05-20-2021 17:30-0400 Heart rate 85 /min JAMEEL CARO MD [facility] 05-20-2021 17:30-0400 Mean blood pressure 91 mm[Hg] JAMEEL CARO MD [facility] 05-20-2021 17:30-0400 Systolic blood pressure 134 mm[Hg] JAMEEL CARO MD [facility] 05-20-2021 16:50-0400 Respiratory rate 18 /min JAMEEL CARO MD [facility] 05-20-2021 16:34-0400 Body height 175.3 cm JAMEEL CARO MD [facility] 05-20-2021 16:34-0400 Body weight 130 kg JAMEEL CARO MD [facility] 05-20-2021 16:34-0400 Body weight 42.3 kg/m2 JAMEEL CARO MD [facility] 02-01-2021 19:18-0500 Body temperature 99.68 [degF] BRIDGETTE DUMONT MD [facility] 02-01-2021 19:18-0500 Diastolic blood pressure 72 mm[Hg] BRIDGETTE DUMONT MD [facility] 02-01-2021 19:18-0500 Heart rate 114 /min BRIDGETTE DUMONT MD [facility] 02-01-2021 19:18-0500 Respiratory rate 20 /min BRIDGETTE DUMONT MD [facility] 02-01-2021 19:18-0500 Systolic blood pressure 138 mm[Hg] BRIDGETTE DUMONT MD [facility] Encounters Encounter Date Encounter Type Care Provider Facility Start: 08-06-2021 End: 08-06-2021 Admission to establishment JAMEEL CARO MD [facility] Start: 07-31-2021 End: 07-31-2021 Patient encounter procedure Arti Ch [employer] ASSEMBLER AND [employer]ER.[employer] RECEPTIONIST Work Phone: [facility] [place] Procedures Date Procedure Procedure Detail Performing Clinician Start: 02-07-2020 Septoplasty/submucou s resecj w/wo cartilage grf SANDHYA BOLTON MD Start: 01-13-2018 Adult depression scr eening assessment Arti Ch [employer] ASSEMBLER AND GLUER.[employer] DES[employer] RECEPTIONIST Work Phone: Adenoidectomy primary SANDHYA BOLTON MD Appendectomy SANDHYA BOLTON MD None (qualifier value) SANDHYA BOLTON MD Plan of Treatment Date Care Activity Detail Author Start: 11-07-2021 Influenza vaccination INFLUENZ A (Season Ended) [facility] Start: 07-31-2021 End: 09-30-2021 CBC panel - Blood by Automated count [facility] Work Phone: Payers Date Payer Category Payer Unknown JOHANA BRADSHAW PPO [id number] 2021-Present [phone] [id number] [place] [address] PPO [id number] Social History Date Type Detail Facility Start: 11-05-2020 End: 03-13-2021 Ex-smoker (finding) [facility] Start: 1990 Sex Assigned At Female A [facility] History of tobacco use Cigarette Smoker C [facility] Start: 03-13-2021 Cigarettes smoked current (pack per day) - Reported 0.5 [facility] Start: 03-13-2021 Tobacco use and exposure Smokeless tobacco non-user [facility] Start: 07-31-2021 Alcohol intake Current non-dr work study student of alcohol (finding) [facility] Start: 07-20-2021 End: 07-30-2021 Exposure to SARS-CoV-2 (event) Not sure [facility] Work Phone: Medical Equipment Procedure Code Equipment Code Equipment Origin al Text Equipment Identifier Dates Blood Glucose Te st Strips Start: 04-15-[address]ps Start: 04-22-2021 Lancets Start: 04-15-[address]ps Start: 04-15-[address]ps Start: 04-22-[address]ps Start: 05-02-2021 Lancets Start: 04-15-[address]ps Start: 04-15-[address]ps Start: 04-22-[address]ps Start: 05-02-2021 Lancets Start: 04-15-[address]ps Start: 04-15-[address]ps Start: 04-22-[address]ps Start: 05-02-2021 Lancets Start: 04-15-[address]ps Start: 04-15-[address]ps Start: 04-22-[address]ps Start: 05-02-2021 Lancets Start: 04-15-[address]ps Start: 04-15-[address]ps Start: 04-22-[address]ps Start: 05-02-2021 Lancets Start: 04-15-2021 See Instructions , 1 bottle of 100, # 1 EA, 11 Refill(s), Pharmacy: [id number], 175.3, cm, 04/15/21 8:34:00 EST, Height, 129, kg, 02/04/21 9:51:00 EST, Dosing Weight Start: 04-15-2021 See Instructions , 1 bottle of 100. Please dispense bottle or package of 100. Patient to test 4 times daily, # 1 EA, 11 Refill(s), Pharmacy: [facility], Gestational diabetes, 175.3, cm, 04/15/21 8:34:00 EST, Height, 129, kg, 02/04/21 9:51:... Start: 04-22-2021 See Instructions , 1 bottle of 100 To check blood sugar 3 times daily and as needed., # 2 EA, 11 Refill(s), Pharmacy: [place] [id number], Diabetes, gestational, 175.3, cm, 04/29/21 8:54:00 EST, Height, 129, kg, 02/04/21 9:51:00 EST, Dosing Weight Start: 05-02-2021 See Instructions , qid 1 month supply, # 1 EA, 11 Refill(s), Pharmacy: [place] [address], 175.3, cm, 04/15/21 8:34:00 EST, Height, 129, kg, 02/04/21 9:51:00 EST, Dosing Weight Start: 04-15-2021 See Instructions , 1 bottle of 100, # 1 EA, 11 Refill(s), Pharmacy: [place] [address], 175.3, cm, 04/15/21 8:34:00 EST, Height, 129, kg, 02/04/21 9:51:00 EST, Dosing Weight Start: 04-15-2021 See Instructions , 1 bottle of 100. Please dispense bottle or package of 100. Patient to test 4 times daily, # 1 EA, 11 Refill(s), Pharmacy: [place] [id number], Gestational diabetes, 175.3, cm, 04/15/21 8:34:00 EST, Height, 129, kg, 02/04/21 9:51:... Start: 04-22-2021 See Instructions , 1 bottle of 100 To check blood sugar 3 times daily and as needed., # 2 EA, 11 Refill(s), Pharmacy: [place] [id number], Diabetes, gestational, 175.3, cm, 04/29/21 8:54:00 EST, Height, 129, kg, 02/04/21 9:51:00 EST, Dosing Weight Start: 05-02-2021 See Instructions , qid 1 month supply, # 1 EA, 11 Refill(s), Pharmacy: [place] [address], 175.3, cm, 04/15/21 8:34:00 EST, Height, 129, kg, 02/04/21 9:51:00 EST, Dosing Weight Start: 04-15-2021 See Instructions , 1 bottle of 100, # 1 EA, 11 Refill(s), Pharmacy: [place] [address], 175.3, cm, 04/15/21 8:34:00 EST, Height, 129, kg, 02/04/21 9:51:00 EST, Dosing Weight Start: 04-15-2021 See Instructions , 1 bottle of 100. Please dispense bottle or package of 100. Patient to test 4 times daily, # 1 EA, 11 Refill(s), Pharmacy: [place] [address], Gestational diabetes, 175.3, cm, 04/15/21 8:34:00 EST, Height, 129, kg, 02/04/21 9:51:... Start: 04-22-2021 See Instructions , 1 bottle of 100 To check blood sugar 3 times daily and as needed., # 2 EA, 11 Refill(s), Pharmacy: [place] [address], Diabetes, gestational, 175.3, cm, 04/29/21 8:54:00 EST, Height, 129, kg, 02/04/21 9:51:00 EST, Dosing Weight Start: 05-02-2021 See Instructions , qid 1 month supply, # 1 EA, 11 Refill(s), Pharmacy: [place] [address], 175.3, cm, 04/15/21 8:34:00 EST, Height, 129, kg, 02/04/21 9:51:00 EST, Dosing Weight Start: 04-15-2021 See Instructions , 1 bottle of 100, # 1 EA, 11 Refill(s), Pharmacy: [place] [address], 175.3, cm, 04/15/21 8:34:00 EST, Height, 129, kg, 02/04/21 9:51:00 EST, Dosing Weight Start: 04-15-2021 See Instructions , 1 bottle of 100. Please dispense bottle or package of 100. Patient to test 4 times daily, # 1 EA, 11 Refill(s), Pharmacy: [place] [address], Gestational diabetes, 175.3, cm, 04/15/21 8:34:00 EST, Height, 129, kg, 02/04/21 9:51:... Start: 04-22-2021 See Instructions , 1 bottle of 100 To check blood sugar 3 times daily and as needed., # 2 EA, 11 Refill(s), Pharmacy: [facility], Diabetes, gestational, 175.3, cm, 04/29/21 8:54:00 EST, Height, 129, kg, 02/04/21 9:51:00 EST, Dosing Weight Start: 05-02-2021 See Instructions , qid 1 month supply, # 1 EA, 11 Refill(s), Pharmacy: [facility], 175.3, cm, 04/15/21 8:34:00 EST, Height, 129, kg, 02/04/21 9:51:00 EST, Dosing Weight Start: 04-15-2021 Functional Status Date Assessment Result Facility 06-23-2021 Functional Status [facility] [place] 06-23-2021 [facility] [place] 06-22-2021 [facility] [place] 06-22-2021 [facility] [place] 06-21-2021 Functional Status [facility] [place] 06-05-2021 Functional Status [facility] [place] Mental Status Date Assessment Result Facility 06-22-2021 Mental Status [facility] Clinical Notes 02-01-2021 to 09-04-2021 Patient InstructionsArti Ch APRN.FRONT DESK RECEPTIONIST - 07/31/2021 10:25 AM EDT Note Date & Type Note Facility 09-04-2021 Note HNO ID: [id number] Author: Arti Ch APRN.FRONT DESK RECEPTIONIST Service: ? Author Type: Nurse Practitioner Type: Progress Notes Filed: 09/04/2021 6:40 PM Note Text: VIRTUAL VISIT PROGRESS NOTE This is a virtual visit using [employer] video visit. It required patient-provider interaction for the medical decision making as documented below. Yue Tang is a 30 year old female seen for medication follow up. Today: Started Cymbalta 20mg on 07/31, as prescribed by myself. Can't really tell much of a difference with the Cymbalta. Hasn't been getting frustrated as quickly. Less episodes of wanting to randomly crying. Still feels very anxious. Seems to be tolerating medication, but having diarrhea. Diet hasn't changed. Has been doing low carb. Drinking a lot of water. 2/5 times she uses restroom, stool is more of a liquid consistency. Wondering if she could have some work up for this, and/or if she may have IBS. HISTORY REVIEWED (electronic chart updated): PAST MEDICAL HISTORY Diagnosis Date - Anxiety - Depression - Hypothyroid - Kidney stones - Low HDL (under 40) 06/2013 - Vitamin D deficiency 06/2013 PAST SURGICAL HISTORY Procedure Laterality Date - ADENOIDECTOMY PRIMARY Adenoidectomy FAMILY HISTORY Problem Relation Age of Onset - Hypertension Mother - Hypertension Father - Diabetes Paternal Grandmother - Heart Maternal Grandfather - Heart Paternal Grandfather Social History Tobacco Use - Smoking status: Former Smoker Packs/day: 0.50 Years: 8.00 Pack years: 4.00 Types: Cigarettes - Smokeless tobacco: Never Used Substance Use Topics - Alcohol use: No - Drug use: No Current Outpatient Medications Medication Sig - Cholecalciferol, Vitamin D3, 125 mcg (5,000 unit) cap Take 1 capsule by mouth once daily. - DULoxetine (CYMBALTA) 20 mg capsule Take 1 capsule by mouth once daily. No current facility-administered medications for this visit. ALLERGIES Allergen Reactions - Celexa [Citalopram] Other: See Comments Nightmares - Lexapro [Escitalopr* GI Upset - Prozac [Fluoxetine * Other: See Comments Worsening depressed mood - Zoloft [Sertraline * GI Upset REVIEW OF SYSTEMS: See HPI, otherwise negative PHYSICAL EXAMINATION: VIDEO EXAM: (if completed, performed via video enabled technology) No exam performed ASSESSMENT: (F53.0) depression (primary encounter diagnosis) (R19.7) Diarrhea, unspecified type PLAN: Increase Cymbalta from 20 to 30mg daily. Follow up in 4-6 weeks. Will discuss bowel issues in the future-possible concern for gallbladder. Possible IBS r/t current mood-may stabilize with mood stabilization. Consider Bentyl/Levsin. Arti Ch APRN.CNP [place] 07-31-2021 Note HNO ID: [id number] Author: Arti Ch APRN.[facility] Service: ? Author Type: Nurse Practitioner Type: Progress Notes Filed: 07/31/2021 11:53 AM Note Text: Chief Complaint Patient presents with: Physical Depression: more anxiety HPI Yue Tnag is a 30 year old female who presents here today for Above Complaints. Today: Will feel completely fine, but then get the sudden urge to cry, just out of the blue. Sleep deprived. Delivered son 6 weeks ago. Is not . Getting snippy with her older son, but doesn't want to do this. Short with , doesn't want to do this. Stopped smoking prior to to . Now every now and then will have a cigarette. But is only a bandaid. Has not started regularly smoking. Zoloft gave diarrhea. Would like to restart a medication to prevent from things feeling worse. Past medical history, appointments, medications, allergies reviewed. Previous Medical History PAST MEDICAL HISTORY Diagnosis Date - Anxiety - Depression - Hypothyroid - Kidney stones - Low HDL (under 40) 06/2013 - Vitamin D deficiency 06/2013 Previous Surgical History PAST SURGICAL HISTORY Procedure Laterality Date - ADENOIDECTOMY PRIMARY Adenoidectomy Family History FAMILY HISTORY Problem Relation Age of Onset - Hypertension Mother - Hypertension Father - Diabetes Paternal Grandmother - Heart Maternal Grandfather - Heart Paternal Grandfather Patient Allergies ALLERGIES Allergen Reactions - Lexapro [Escitalopr* GI Upset - Prozac [Fluoxetine * Other: See Comments Worsening depressed mood - Zoloft [Sertraline * GI Upset Current Medications Current Outpatient Medications on File Prior to Visit Medication Sig - cephALEXin (KEFLEX) 500 mg capsule Take 1 capsule by mouth three times daily. (Patient not taking: Reported on 07/31/2021 ) - cephALEXin (KEFLEX) 500 mg capsule Take 1 capsule by mouth three times daily. (Patient not taking: Reported on 03/13/2021 ) - DULoxetine (CYMBALTA) 30 mg capsule Take 1 capsule by mouth once daily. - >Blood Pressure Cuff Home HOME BP CUFF, DX: HTN LABILE (Patient not taking: Reported on 07/31/2021 ) - buPROPion XL (WELLBUTRIN XL) 150 mg 24 hr tablet Take 1 tablet by mouth once daily. In the morning - citalopram (CELEXA) 20 mg tablet Take 1 tablet by mouth once daily. - albuterol HFA (VENTOLIN HFA) 90 mcg/actuation inhaler Inhale 2 Puffs as instructed every 4 hours as needed for Wheezing/Shortness of Breath. (Patient not taking: Reported on 03/13/2021 ) No current facility-administered medications on file prior to visit. Social History Social History Tobacco Use - Smoking status: Former Smoker Packs/day: 0.50 Years: 8.00 Pack years: 4.00 Types: Cigarettes - Smokeless tobacco: Never Used Substance Use Topics - Alcohol use: No - Drug use: No Review of Symptoms REVIEW OF SYSTEMS See HPI, otherwise negative EXAM: BP 124/86 (BP Site: Left Arm, BP Position: Sitting, BP Cuff Size: Regular Adult) Pulse 85 Resp 16 Wt 122 kg (269 lb) LMP 11/29/2017 (Exact Date) SpO2 97% BMI 41.51 kg/m? General Appearance: Well appearing, alert, in no acute distress, well-hydrated, well nourished. and Obese. Skin: Skin color, texture, turgor normal, no suspicious rashes or lesions. Head: Normocephalic, no masses, lesions, tenderness or abnormalities. Neck: Supple, no adenopathy; thyroid symmetric, normal size, no bruits. Lungs: Lungs clear to auscultation. No wheezing, rhonchi, rales.. Heart: RRR without murmur, gallop, or rubs. No ectopy. Extremities: No deformities, edema, skin discoloration, clubbing or cyanosis. Good capillary refill. . Peripheral Pulses: Normal. Lymph Nodes: No cervical lymphadenopathy and No supraclavicular lymphadenopathy. Health Maintenance List COVID-19 VACCINE(1) Never done DTAP,TDAP,TD(1 - Tdap) Never done PAP TESTING due on 08/21/2016 DEPRESSION SCREENING due on 01/13/2019 INFLUENZA(Season Ended) due on 11/07/2021 HEPATITIS C SCREENING Completed HIV SCREENING Completed Data reviewed Previous records, office notes ASSESSMENT/PLAN: 1. depression - ICD9: 648.44, 311, ICD10: F53.0 (primary diagnosis) Begin duloxetine. Follow up in 1 month, sooner if necessary. - DULOXETINE 20 MG CAPSULE,DELAYED RELEASE 2. Fatigue, unspecified type - ICD9: 780.79, ICD10: R53.83 Begin duloxetine. Follow up in 1 month, sooner if necessary. 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 Diet controlled gestational diabetes mellitus (GDM), antepartum - ICD9: 648.83, ICD10: O24.410 - CBC - HGB A1C - COMP METABOLIC PANEL 5. Vitamin D deficiency - ICD9: 268.9, ICD10: E55.9 - VITAMIN D 25 HYDROXY 6. Dyslipidemia - ICD9: 272.4, ICD10: E78.5 - LIPID PANEL BASIC (more content not included)... [place] 07-31-2021 Instructions Arti Ch APRN.CNP - 07/31/2021 11:13 AM EDT Have your labs drawn when able. We'll follow up in a month and likely increase your duloxetine (Cymbalta) at that point. documented in this encounter [facility] 07-31-2021 History of Presen t illness Narrative Chief Complaint Patient presents with: Physical Depression: more anxiety HPI Yue Tang is a 30 year old female who presents here today for Above Complaints. Today: Will feel completely fine, but then get the sudden urge to cry, just out of the blue. Sleep deprived. Delivered son 6 weeks ago. Is not . Getting snippy with her older son, but doesn't want to do this. Short with , doesn't want to do this. Stopped smoking prior to to . Now every now and then will have a cigarette. But is only a bandaid. Has not started regularly smoking. Zoloft gave diarrhea. Would like to restart a medication to prevent from things feeling worse. Past medical history, appointments, medications, allergies reviewed. Previous Medical History PAST MEDICAL HISTORY Diagnosis Date Anxiety Depression Hypothyroid Kidney stones Low HDL (under 40) 06/2013 Vitamin D deficiency 06/2013 Previous Surgical History PAST SURGICAL HISTORY Procedure Laterality Date ADENOIDECTOMY PRIMARY <AGE 13 Adenoidectomy Family History FAMILY HISTORY Problem Relation Age of Onset Hypertension Mother Hypertension Father Diabetes Paternal Grandmother Heart Maternal Grandfather Heart Paternal Grandfather Patient Allergies ALLERGIES Allergen Reactions Lexapro [Escitalopr* GI Upset Prozac [Fluoxetine * Other: See Comments Worsening depressed mood Zoloft [Sertraline * GI Upset Current Medications Current Outpatient Medications on File Prior to Visit Medication Sig cephALEXin (KEFLEX) 500 mg capsule Take 1 capsule by mouth three times daily. (Patient not taking: Reported on 07/31/2021 ) cephALEXin (KEFLEX) 500 mg capsule Take 1 capsule by mouth three times daily. (Patient not taking: Reported on 03/13/2021 ) DULoxetine (CYMBALTA) 30 mg capsule Take 1 capsule by mouth once daily. >Blood Pressure Cuff Home HOME BP CUFF, DX: HTN LABILE (Patient not taking: Reported on 07/31/2021 ) buPROPion XL (WELLBUTRIN XL) 150 mg 24 hr tablet Take 1 tablet by mouth once daily. In the morning citalopram (CELEXA) 20 mg tablet Take 1 tablet by mouth once daily. albuterol HFA (VENTOLIN HFA) 90 mcg/actuation inhaler Inhale 2 Puffs as instructed every 4 hours as needed for Wheezing/Shortness of Breath. (Patient not taking: Reported on 03/13/2021 ) No current facility-administered medications on file prior to visit. Social History Social History Tobacco Use Smoking status: Former Smoker Packs/day: 0.50 Years: 8.00 Pack years: 4.00 Types: Cigarettes Smokeless tobacco: Never Used Substance Use Topics Alcohol use: No Drug use: No Review of Symptoms REVIEW OF SYSTEMS See HPI, otherwise negative EXAM: BP 124/86 (BP Site: Left Arm, BP Position: Sitting, BP Cuff Size: Regular Adult) Pulse 85 Resp 16 Wt 122 kg (269 lb) LMP 11/29/2017 (Exact Date) SpO2 97% BMI 41.51 kg/m General Appearance: Well appearing, alert, in no acute distress, well-hydrated, well nourished. and Obese. Skin: Skin color, texture, turgor normal, no suspicious rashes or lesions. Head: Normocephalic, no masses, lesions, tenderness or abnormalities. Neck: Supple, no adenopathy; thyroid symmetric, normal size, no bruits. Lungs: Lungs clear to auscultation. No wheezing, rhonchi, rales.. Heart: RRR without murmur, gallop, or rubs. No ectopy. Extremities: No deformities, edema, skin discoloration, clubbing or cyanosis. Good capillary refill. . Peripheral Pulses: Normal. Lymph Nodes: No cervical lymphadenopathy and No supraclavicular lymphadenopathy. Health Maintenance List COVID-19 VACCINE(1) Never done DTAP,TDAP,TD(1 - Tdap) Never done PAP TESTING due on 08/21/2016 DEPRESSION SCREENING due on 01/13/2019 INFLUENZA(Season Ended) due on 11/07/2021 HEPATITIS C SCREENING Completed HIV SCREENING Completed Data reviewed Previous records, office notes ASSESSMENT/PLAN: 1. depression - ICD9: 648.44, 311, ICD10: F53.0 (primary diagnosis) Begin duloxetine. Follow up in 1 month, sooner if necessary. - DULOXETINE 20 MG CAPSULE,DELAYED RELEASE 2. Fatigue, unspecified type - ICD9: 780.79, ICD10: R53.83 Begin duloxetine. Follow up in 1 month, sooner if necessary. 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 Diet controlled gestational diabetes mellitus (GDM), antepartum - ICD9: 648.83, ICD10: O24.410 - CBC - HGB A1C - COMP METABOLIC PANEL 5. Vitamin D deficiency - ICD9: 268.9, ICD10: E55.9 - VITAMIN D 25 HYDROXY 6. Dyslipidemia - ICD9: 272.4, ICD10: E78.5 - LIPID PANEL BASIC Arti Ch APRN.FRONT DESK RECEPTIONIST documented in this encounter [facility] Chief Complaint day #1 Subjective Doing well, lochia decreased, nursing is going well. Pt is having some back pain at epidural site. Objective Looks well and happy. Alert and oriented x3. CVS RRR, Lungs CTAB, Abd soft, uterus firm at +1. Extremities no edema, non tender. Perineum intact. VITALS [id number](kg) 06/22 03:2436.4134/348924--CR61/79180.0 06/21 20:01--129/40545----DG 06/21 19:47--102/54112----BA 06/21 19:31------RA 06/21 19:16--126/18862----SM 24 Hr Tmax: 36.6 at 06/21 17:46 36 Hr Tmax: 36.8 at 06/21 08:12 Vital Signs are the last 5 in the past 48 hours. Weights display the last 5 within 7 days. Initial Wt: 06/21 131.0 kg 288 lb Current Wt: 06/21 131.0 kg 288 lb LABS 06/22 06:12 Hgb: 11.2 L Hct: 33.6 L 06/21 06:43 WBC: 8.30 Hgb: 12.0 Hct: 36.1 L Platelet: 242 Neutrophil %: 69.3 Medications Active Inpt Meds: tetanus/diphth/pertuss (Tdap) adult/adol (Boostrix (Tdap)) Start: 06/21/21 20:00:00 EDT, Dose = 0.5 mL, Susp, Intramuscular, Vaccine, 06/21/21 19:16:00 EDT Active PRN Meds: Lactated Ringers Infusion (LR 500 mL Bolus) Start: 06/21/21 6:19:00 EDT, Dose = 500 mL, Soln, IV Bolus, AsDirected, PRN, Other (see order comments), Rate: 999 mL/hr, hour(s), 06/21/21 6:19:00 EDT RHo (D) immune globulin (Rhophylac) Start: 06/21/21 19:16:00 EDT, Dose = 300 mcg, = 2 mL, Intramuscular, AsDirected, PRN, if Rh factor neg per policy, 1 dose(s), Stop: Limited # of times, 06/21/21 19:16:00 EDT acetaminophen-hydrocodone ([place] 325- 5 mg oral tablet) Start: 06/21/21 19:16:00 EDT, Dose = 1 tab(s), Tab, Oral, q6h, PRN, Pain, scale 4-6, 06/21/21 19:16:00 EDT acetaminophen-hydrocodone ([place] 325- 5 mg oral tablet) Start: 06/21/21 19:16:00 EDT, Dose = 2 tab(s), Tab, Oral, q6h, PRN, Pain, scale 7-10, 06/21/21 19:16:00 EDT acetaminophen (Tylenol) Start: 06/21/21 19:16:00 EDT, Dose = 650 mg, = 2 tab(s), Oral, q6h, PRN, Pain, scale 1-3, 06/21/21 19:16:00 EDT benzocaine topical (Dermoplast topical spray) Start: 06/21/21 19:16:00 EDT, Dose = 1 spray(s), [place], Perineum, q1h, PRN, Other (see order comments), 06/21/21 19:16:00 EDT benzocaine topical (Americaine Hemorrhoidal 20% rectal ointment) Start: 06/21/21 19:16:00 EDT, Dose = 1 young, Ointment, Perineum, AsDirected, PRN, to perineal sutures, 06/21/21 19:16:00 EDT bisacodyl (Dulcolax Laxative) Start: 06/21/21 19:16:00 EDT, Dose = 10 mg, = 1 supp, Rectal, qDay, PRN, Constipation, 06/21/21 19:16:00 EDT carboprost (Hemabate) Start: 06/21/21 6:19:00 EDT, Dose = 250 mcg, = 1 mL, Intramuscular, Once, PRN, Other (see order comments), 06/21/21 6:19:00 EDT carboprost (Hemabate) Start: 06/21/21 19:16:00 EDT, Dose = 250 mcg, = 1 mL, Intramuscular, Once, PRN, Other (see order comments), 06/21/21 19:16:00 EDT citric acid-sodium citrate (Bicitra) Start: 06/21/21 6:19:00 EDT, Dose = 30 mL, Soln, Oral, AsDirected, PRN, Gastric Upset, 06/21/21 6:19:00 EDT citric acid-sodium citrate (Bicitra) Start: 06/21/21 19:16:00 EDT, Dose = 30 mL, Soln, Oral, AsDirected, PRN, Gastric Upset, 06/21/21 19:16:00 EDT docusate (Colace) Start: 06/21/21 19:16:00 EDT, Dose = 100 mg, = 1 cap(s), Oral, BID, PRN, Constipation, 06/21/21 19:16:00 EDT glycerin-witch casey topical (glycerin-witch casey 50% topical pad) Start: 06/21/21 19:16:00 EDT, Dose = 1 young, Pad, Topical, AsDirected, PRN, Hemorrhoids, 06/21/21 19:16:00 EDT hydrocortisone topical (Anusol-HC 25 mg rectal suppository) Start: 06/21/21 19:16:00 EDT, Dose = 25 mg, = 1 supp, Rectal, BID, PRN, hemorrhoidal discomfort, 06/21/21 19:16:00 EDT hydrocortisone-pramoxine topical (Analpram-HC 2.5%-1% rectal cream) Start: 06/21/21 19:16:00 EDT, Dose = 1 young, Cream, Perineum, q1h, PRN, hemorrhoidal or perineal discomfort, 06/21/21 19:16:00 EDT ibuprofen (Motrin) Start: 06/21/21 19:16:00 EDT, Dose = 600 mg, = 1 tab(s), Oral, q6h, PRN, uterine cramping, 06/21/21 19:16:00 EDT lanolin topical (Lansinoh for Breast Feeding Mothers) Start: 06/21/21:16:00 EDT, 7 g, Dose = 1 EA, Topical, AsDirected, PRN, Other (see order comments), Apply to: nipple area, Ointment, 06/21/21:16:00 EDT lidocaine (Xylocaine HCl 1% injectable solution) Start: 06/21/21:19:00 EDT, Dose = 20 mg, = 2 mL, Perineum, AsDirected, PRN, to perineal sutures, 1 dose(s), Stop: Limited # of times, 06/21/21:19:00 EDT lidocaine (Xylocaine HCl 1% injectable solution) Start: 06/21/21:16:00 EDT, Dose = 20 mg, = 2 mL, Perineum, AsDirected, PRN, to perineal sutures, 1 dose(s), Stop: Limited # of times, 06/21/21:16:00 EDT methylergonovine (Methergine) Start: 06/21/21 6:19:00 EDT, Dose = 0.2 mg, = 1 mL, Intramuscular, Once, PRN, Other (see order comments), 06/21/21 6:19:00 EDT methylergonovine (Methergine) Start: 06/21/21 19:16:00 EDT, Dose = 0.2 mg, = 1 mL, Intramuscular, Once, PRN, Other (see order comments), 06/21/21 19:16:00 EDT miSOPROStol (Cytotec) Start: 06/21/21 6:19:00 EDT, Dose = 1,000 mcg, = 5 tab(s), Rectal, Once, PRN, Other (see order comments), 0, 06/21/21 6:19:00 EDT miSOPROStol (Cytotec) Start: 06/21/21 19:16:00 EDT, Dose = 1,000 mcg, = 5 tab(s), Rectal, Once, PRN, Other (see order comments), 0, 06/21/21 19:16:00 EDT naloxone (Narcan) Start: 06/21/21 12:56:00 EDT, Dose = 0.1 mg, = 0.25 mL, IV Push, AsDirected, PRN, Control symptoms, 06/21/21 12:56:00 EDT naloxone (Narcan) Start: 06/21/21 12:56:00 EDT, Dose = 0.4 mg, = 1 mL, IV Push, AsDirected, PRN, Control symptoms, 06/21/21 12:56:00 EDT ondansetron (Zofran) Start: 06/21/21 6:19:00 EDT, Dose = 4 mg, = 2 mL, IV Push, q4h, PRN, Nausea, 06/21/21 6:19:00 EDT ondansetron (Zofran) Start: 06/21/21 12:56:00 EDT, Dose = 4 mg, = 2 mL, IV Push, q4h, PRN, Nausea/Vomiting, 2 dose(s), Stop: Limited # of times, 06/21/21 12:56:00 EDT oxytocin (Pitocin) Start: 06/21/21 6:19:00 EDT, Dose = 20 unit(s), = 2 mL, Intramuscular, Once, PRN, Other (see order comments), 0, 06/21/21 6:19:00 EDT oxytocin (Pitocin) Start: 06/21/21 19:16:00 EDT, Dose = 20 unit(s), = 2 mL, Intramuscular, Once, PRN, Other (see order comments), 06/21/21 19:16:00 EDT simethicone (Mylicon) Start: 06/21/21 19:16:00 EDT, Dose = 80 mg, = 1 tab(s), Chewed, TID, PRN, Dyspepsia, 06/21/21 19:16:00 EDT sodium biphosphate-sodium phosphate (Fleet Enema) Start: 06/21/21 19:16:00 EDT, Dose = 133 mL, Enema, Rectal, qDay, PRN, Constipation, 06/21/21 19:16:00 EDT terbutaline (Brethine) Start: 06/21/21 6:19:00 EDT, Dose = 0.25 mg, = 0.25 mL, Subcutaneous, AsDirected, PRN, Other (see order comments), 06/21/21 6:19:00 EDT terbutaline (Brethine) Start: 06/21/21 7:38:00 EDT, Dose = 0.25 mg, = 0.25 mL, Subcutaneous, AsDirected, PRN, Control symptoms, directed by physician for episode of tachysystole resulting in prolonged bradycardia (lasting greater than 3 minutes) and/or late decelerati... zolpidem (Ambien) Start: 06/21/21 19:16:00 EDT, Dose = 5 mg, = 1 tab(s), Oral, qHS, PRN, Sleep, 06/21/21 19:16:00 EDT One Time Meds: (Completed) bupivacaine-fentanyl (bupivacaine-fentanyl (ANES)) Soln, Epidural, Once, Stop: 06/21/21 12:59:00 EDT (Completed) epinephrine-lidocaine (epinephrine-lidocaine (ANES)) Soln, Epidural, Once, Stop: 06/21/21 13:24:00 EDT (Completed) fentaNYL (Sublimaze (ANES)) Intrathecal, Once, Stop: 06/21/21 14:51:00 EDT Active IV Meds: Lactated Ringers Infusion 1,000 mL (LR 1,000 mL) Start: 06/21/21 6:19:00 EDT, Rate: 125 mL/hr, 06/21/21 6:19:00 EDT bupivacaine-fentanyl 100 mL (Marcaine-Sublimaze 0.125%-2 mcg/mL EPIDURAL 100 mL 100 mL) start date 06/21/21 12:56:00 EDT, 100 mL, Epidural, 11 mL/hr, 2 mL Demand Dose, 10 minute Lockout, 18 mL/hr Max hourly rate, 06/21/21 12:56:00 EDT oxytocin 20 unit(s) + LR Premix Diluent 1,000 mL (Oxytocin for IV (mL/hr) 20 unit(s) + LR Premix Diluent 1,000 mL) Start: 06/21/21 6:19:00 EDT, Rate: 999 mL/hr, 06/21/21 6:19:00 EDT oxytocin 20 unit(s) + Lactated Ringers Infusion 1,000 mL (Oxytocin for IV (mL/hr) 20 unit(s) + LR 1,000 mL) Start: 06/21/21 19:16:00 EDT, Rate: 999 mL/hr, 06/21/21 19:16:00 EDT oxytocin 20 unit(s) + Lactated Ringers Infusion 1,000 mL (Oxytocin for IV (mL/hr) 20 unit(s) + LR 1,000 mL) Start: 06/21/21 19:16:00 EDT, Rate: 125 mL/hr, 06/21/21 19:16:00 EDT oxytocin 20 unit(s) [1 munit/min] + Lactated Ringers Infusion 1,000 mL (Oxytocin for IV (munit/min) 20 unit(s) [1 munit/min] + Lactated Ringers Infusion 1,000 mL) Start: 06/21/21 7:38:00 EDT, Start at 1 milliunits/minute Piggyback at closest IV port via infusion pump. Increase rate 1 milliunits every 30 minutes until contractions are no closer than every 2 minutes. Do not exceed 30 milliunits/minute, Rate: 3 m... Problems (14) Anxiety (93367223) Contact lenses (10170663) Depression (399437070) Encounter for annual routine gynecological examination (738605960) Encounter for supervision of normal in multigravida in first trimester (309819864) GDM (gestational diabetes mellitus) (29792736) Gestational diabetes mellitus, class A>2< (56666196) Glasses (9557470143) Graves' disease (826869922) Hypothyroidism (04891136) Kidney stone (698736900) PID - pelvic inflammatory disease (571147384) (976991543) Tobacco use (6523153797) ASSESSMENT/PLAN: day # 1 after spontaneous vaginal delivery. Pt doing very well, plan to discharge to home today. Extracted from: Title:Clinical Document Author:SHAMAR VEGA RN-GILLESM Date:06/21/21 [place] ADMISSION HISTORY AN D PHYSICIAL CHIEF COMPLAINT: Induction of labor HISTORY OF PRESENT ILLNESS: , 39 weeks, EDC 06/28/21 by CRL and LMP, complicated by gestational diabetes, diet controlled, and episodes of high BP with neg workup. She presents today for an induction of labor, she denies GUERRA, visual changes and epigastric pain. Pt contacting Q 5-6 min on admission, she rates them a 0 on pain scale. Obstetric History: DIGNA 06/28/21 (Authoritative) EGA 39 Weeks, 0 Days /Parity G2,P1(1,0,0,1) Multiple Fetuses No, [place] Feeding Plan -- Current Weight 131kg Pre-Preg Weight 125.1kg Height 172cm BMI 44.28kg/m2 Blood Type B POS RPR Reactive Rubella Imm St Positive Started PNC in first trimester and has been consistent. Hx of macrosomia, 3 hour Glucola 230/204/138. REVIEW OF SYSTEMS: All neg. ACTIVE PROBLEMS: (14) Anxiety (18902997) Contact lenses (08275973) Depression (720273119) Encounter for annual routine gynecological examination (158848625) Encounter for supervision of normal in multigravida in first trimester (989831433) GDM (gestational diabetes mellitus) (28570381) Gestational diabetes mellitus, class A>2< (03321529) Glasses (4845953472) Graves' disease (966213266) Hypothyroidism (41508744) Kidney stone (239718586) PID - pelvic inflammatory disease (636668107) (936094675) Tobacco use (3977643796) MEDICATIONS: Active Inpt Meds: None Active PRN Meds: Lactated Ringers Infusion (LR 500 mL Bolus) Start: 06/21/21 6:19:00 EDT, Dose = 500 mL, Soln, IV Bolus, AsDirected, PRN, Other (see order comments), Rate: 999 mL/hr, hour(s), 06/21/21 6:19:00 EDT carboprost (Hemabate) Start: 06/21/21 6:19:00 EDT, Dose = 250 mcg, = 1 mL, Intramuscular, Once, PRN, Other (see order comments), 06/21/21 6:19:00 EDT citric acid-sodium citrate (Bicitra) Start: 06/21/21 6:19:00 EDT, Dose = 30 mL, Soln, Oral, AsDirected, PRN, Gastric Upset, 06/21/21:19:00 EDT lidocaine (Xylocaine HCl 1% injectable solution) Start: 06/21/2119:00 EDT, Dose = 20 mg, = 2 mL, Perineum, AsDirected, PRN, to perineal sutures, 1 dose(s), Stop: Limited # of times, 06/21/21:19:00 EDT methylergonovine (Methergine) Start: 06/21/2119:00 EDT, Dose = 0.2 mg, = 1 mL, Intramuscular, Once, PRN, Other (see order comments), 06/21/2119:00 EDT miSOPROStol (Cytotec) Start: 06/21/21 6:19:00 EDT, Dose = 1,000 mcg, = 5 tab(s), Rectal, Once, PRN, Other (see order comments), 0, 06/21/21:19:00 EDT ondansetron (Zofran) Start: 06/21/21 6:19:00 EDT, Dose = 4 mg, = 2 mL, IV Push, q4h, PRN, Nausea, 06/21/21:19:00 EDT oxytocin (Pitocin) Start: 06/21/21 619:00 EDT, Dose = 20 unit(s), = 2 mL, Intramuscular, Once, PRN, Other (see order comments), 0, 06/21/21:19:00 EDT terbutaline (Brethine) Start: 06/21/21 6:19:00 EDT, Dose = 0.25 mg, = 0.25 mL, Subcutaneous, AsDirected, PRN, Other (see order comments), 06/21/21 6:19:00 EDT terbutaline (Brethine) Start: 06/21/21 7:38:00 EDT, Dose = 0.25 mg, = 0.25 mL, Subcutaneous, AsDirected, PRN, Control symptoms, directed by physician for episode of tachysystole resulting in prolonged bradycardia (lasting greater than 3 minutes) and/or late decelerati... One Time Meds: None Active IV Meds: Lactated Ringers Infusion 1,000 mL (LR 1,000 mL) Start: 06/21/21 6:19:00 EDT, Rate: 125 mL/hr, 06/21/21 6:19:00 EDT oxytocin 20 unit(s) + LR Premix Diluent 1,000 mL (Oxytocin for IV (mL/hr) 20 unit(s) + LR Premix Diluent 1,000 mL) Start: 06/21/21 6:19:00 EDT, Rate: 999 mL/hr, 06/21/21 6:19:00 EDT oxytocin 20 unit(s) [1 munit/min] + Lactated Ringers Infusion 1,000 mL (Oxytocin for IV (munit/min) 20 unit(s) [1 munit/min] + Lactated Ringers Infusion 1,000 mL) Start: 06/21/21 7:38:00 EDT, Start at 1 milliunits/minute Piggyback at closest IV port via infusion pump. Increase rate 1 milliunits every 30 minutes until contractions are no closer than every 2 minutes. Do not exceed 30 milliunits/minute, Rate: 3 m... ALLERGIES: (1) Lexapro FAMILY HISTORY: [employer] SOCIAL HISTORY: Single, Denies ETOH and tobacco PHYSICAL EXAM: VITALS: [id number](kg) 06/21 08:1236.8129/436785--ED09/93728.0 06/21 06:4636.8101/170308--RE 24 Hr Tmax: 36.8 at 06/21 08:12 36 Hr Tmax: 36.8 at 06/21 08:12 Vital Signs are the last 5 in the past 48 hours. Weights display the last 5 within 7 days. Initial Wt: 06/21 131.0 kg 288 lb Current Wt: 06/21 131.0 kg 288 lb GENERAL: YWF a little anxious about epidural not working HEENT: WNL CARDIOVASCULAR: RRR RESPIRATORY: CTAB ABDOMEN: Soft, non tender, gravid consistant with dates. cxs Q 5-6 min FHR 125 Cat 1 EXREMETIES: No edema, non tender NEUROLOGICAL: WNL PSYCHIATRIC: WNL LABS: 36hr Labs 06/21 0643 ABO/Rh InterpSee Flowsheet Hct36.1L Hgb12.0 MCH25.7L MCHC33.2 MCV77.6L MPV8.7 [id number] RBC4.65 RDW15.8H WBC8.30 Lymphocyte %23.7 Monocyte %5.8 Neutrophil %69.3 Eosinophil %0.8 Basophil %0.4 Neutrophil, Absolute5.70 Lymphocyte, Absolute2.00 Monocyte, Absolute0.50 Eosinophil, Absolute0.10 Basophil, Absolute0.00 IMPRESSION: 39 week intrauterine . Hx of macrosomia, complicated by late dx of GDM PLAN: Pitocin induction of labor. Plan Artificial rupture of membranes when appropriate. Clinical Estimated weight 7# 8 oz. Anticipate spontaneous vaginal delivery. Future Scheduled Tests Laboratory* Glucose Tolerance Test 3 Hour (AO) 04/24/21 * [facility] Lab Send out (Blood Specimens) 12/24/20 Radiology* US OB W/Biophysical Profile 06/21/21 [facility] 04-15-2022 Hospital Discharge instructions Patient Education 06/21/2021 19:10:52 7b- Depression and Blues (12/2019) (CUSTOM) [place] Depression and Blues All mothers are at risk of developing depression or the blues. These mood changes can occur right after giving , or they may occur many months after giving . blues or depression can be mild or severe. Additionally, depression can goaway rather quickly, or it can be a long-term condition. CAUSES Raised hormone levels and the rapid drop in those levels are thought to be a main cause of depression and blues. A number of hormones change during and after . Estrogenand progesterone usually decrease right after delivery. The levels of thyroid hormone and various cortisol steroids also rapidly drop. Other factors that play a role in these mood changes include major life events and genetics. RISK FACTORS If you have any of the following risks for blues or depression, know what symptoms to watch out for during the period. Risk factors that may increase the likelihood of getting blues or depression include: Having a personal or family history of depression. Having depression while being . Having premenstrual mood issues or mood issues related to oral contraceptives. Having a lot of life stress. Having marital conflict. Lacking a social support network. Having health problems, such as diabetes. SIGNS AND SYMPTOMS Symptoms of blues include: Brief changes in mood, such as going from extreme happiness to sadness. Decreased concentration. Difficulty sleeping. Crying spells, tearfulness. Irritability. Anxiety. Symptoms of depression typically begin within the first month after giving . These symptoms include: Difficulty sleeping or excessive sleepiness. Marked weight loss. Agitation. Feelings of worthlessness. Lack of interest in activity or food. psychosis is a very serious condition and can be dangerous. Fortunately, it is rare. Displaying any of the following symptoms is cause for immediate medical attention. Symptoms of psychosis include: Hallucinations and delusions. Bizarre or disorganized behavior. Confusion or disorientation. DIAGNOSIS A diagnosis is made by an evaluation of your symptoms. There are no medical or lab tests that lead to a diagnosis, but there are various questionnaires that a health care provider may use to identifythose with blues, depression, or psychosis. Often, a screening tool called the [place] Depression Scale is used to diagnose depression in the period. TREATMENT blues usually goes away on its own in 1 2 weeks. Social support is often all that is needed. You will be encouraged to get adequate sleep and rest. Occasionally, you may be given medicinesto help you sleep. depression requires treatment because it can last several months or longer if it is not treated. Treatment may include individual or group therapy, medicine, or both to address any social,physiological, and psychological factors that may play a role in the depression. Regular exercise, a healthy diet, rest, and social support may also be strongly recommended. psychosis is more serious and needs treatment right away. Hospitalization is often needed. HOME CARE INSTRUCTIONS Get as much rest as you can. Exercise regularly. Some women find yoga and walking to be beneficial. Eat a balanced and nourishing diet. Do little things that you enjoy. Have a cup of tea, take a bubble bath, read your favorite magazine, or listen to your favorite music. Avoid alcohol. Ask for help with cobol developer, cooking, grocery shopping, or running errands as needed. Do nottry to do everything. Talk to people close to you about how you are feeling. Get support from your partner, family members, and friends. Try to stay positive in how you think. Think about the things you are grateful for. Do not spend a lot of time alone. Only take aoir-pkl-mnvtgsb or prescription medicine as directed by your health care provider. Keep all your appointments. Let your health care provider know if you have any concerns. SEEK MEDICAL CARE IF: You are having a reaction to or problems with your medicine. SEEK IMMEDIATE MEDICAL CARE IF: You have suicidal feelings. You think you may harm yourself or someone else. MAKE SURE YOU: Understand these instructions. Will watch your condition. Will get help right away if you are not doing well or get worse. Resource: ExitCare Patient Information 2015 [employer]. This information is not intended to replace advicegiven to you by your health care provider. Make sure you discuss any questions you have with your health care provider. 06/21/2021 19:10:52 Care After Vaginal Delivery Care After Vaginal Delivery This sheet gives you information about how to care for yourself from the time you deliver your babyto up to 6 12 weeks after delivery ( period). Your health care provider may also give youmore specific instructions. If you have problems or questions, contact your health care provider. Follow these instructions at home: Vaginal bleeding It is normal to have vaginal bleeding (lochia) after delivery. Wear a sanitary pad for vaginal bleeding and discharge. ?During the first week after delivery, the amount and appearance of lochia is often similar to a menstrual period. ?Over the next few weeks, it will gradually decrease to a dry, yellow-brown discharge. ?For most women, lochia stops completely by 4 6 weeks after delivery. Vaginal bleeding can vary from woman to woman. Change your sanitary pads frequently. Watch for any changes in your flow, such as: ?A sudden increase in volume. ?A change in color. ?Large blood clots. If you pass a blood clot from your vagina, save it and call your health care provider to discuss. Do not flush blood clots down the toilet before talking with your health care provider. Do not use tampons or douches until your health care provider says this is safe. If you are not , your period should return 6 8 weeks after delivery. If you are feeding your child breast milk only (exclusive ), your period may not return until you stop . Perineal care Keep the area between the vagina and the anus (perineum) clean and dry as told by your health care provider. Use medicated pads and pain-relieving sprays and creams as directed. If you had a cut in the perineum (episiotomy) or a tear in the vagina, check the area for signs of infection until you are healed. Check for: ?More redness, swelling, or pain. ?Fluid or blood coming from the cut or tear. ?Warmth. ?Pus or a bad smell. You may be given a squirt bottle to use instead of wiping to clean the perineum area after you go to the bathroom. As you start healing, you may use the squirt bottle before wiping yourself. Make sure to wipe gently. To relieve pain caused by an episiotomy, a tear in the vagina, or swollen veins in the anus (hemorrhoids), try taking a warm sitz bath 2 3 times a day. A sitz bath is a warm water bath that is taken while you are sitting down. The water should only come up to your hips and should cover your buttocks. Breast care Within the first few days after delivery, your breasts may feel heavy, full, and uncomfortable (breast engorgement). Milk may also leak from your breasts. Your health care provider can suggest ways to help relieve the discomfort. Breast engorgement should go away within a few days. If you are : ?Wear a bra that supports your breasts and fits you well. ?Keep your nipples clean and dry. Apply creams and ointments as told by your health care provider. ?You may need to use breast pads to absorb milk that leaks from your breasts. ?You may have uterine contractions every time you breastfeed for up to several weeks after delivery. Uterine contractions help your uterus return to its normal size. ?If you have any problems with , work with your health care provider or customer sales consultant. If you are not : ?Avoid touching your breasts a lot. Doing this can make your breasts produce more milk. ?Wear a good-fitting bra and use cold packs to help with swelling. ?Do not squeeze out (express) milk. This causes you to make more milk. Intimacy and sexuality Ask your health care provider when you can engage in sexual activity. This may depend on: ?Your risk of infection. ?How fast you are healing. ?Your comfort and desire to engage in sexual activity. You are able to get after delivery, even if you have not had your period. If desired, talkwith your health care provider about methods of control (contraception). Medicines Take tyiu-vvp-tuuksde and prescription medicines only as told by your health care provider. If you were prescribed an antibiotic medicine, take it as told by your health care provider. Do notstop taking the antibiotic even if you start to feel better. Activity Gradually return to your normal activities as told by your health care provider. Ask your health care provider what activities are safe for you. Rest as much as possible. Try to rest or take a nap while your baby is sleeping. Eating and drinking Drink enough fluid to keep your urine pale yellow. Eat high-fiber foods every day. These may help prevent or relieve constipation. High-fiber foods include: ?Whole grain cereals and breads. ?Brown rice. ?Beans. ?Fresh fruits and vegetables. Do not try to lose weight quickly by cutting back on calories. Take your vitamins until your checkup or until your health care provider tells you it is okay to stop. Lifestyle Do not use any products that contain nicotine or tobacco, such as cigarettes and e-cigarettes. If you need help quitting, ask your health care provider. Do not drink alcohol, especially if you are . General instructions Keep all follow-up visits for you and your baby as told by your health care provider. Most women visit their health care provider for a checkup within the first 3 6 weeks after delivery. Contact a health care provider if: You feel unable to cope with the changes that your child brings to your life, and these feelings donot go away. You feel unusually sad or worried. Your breasts become red, painful, or hard. You have a fever. You have trouble holding urine or keeping urine from leaking. You have little or no interest in activities you used to enjoy. You have not breastfed at all and you have not had a menstrual period for 12 weeks after delivery. You have stopped and you have not had a menstrual period for 12 weeks after you stopped . You have questions about caring for yourself or your baby. You pass a blood clot from your vagina. Get help right away if: You have chest pain. You have difficulty breathing. You have sudden, severe leg pain. You have severe pain or cramping in your lower abdomen. You bleed from your vagina so much that you fill more than one sanitary pad in one hour. Bleeding should not be heavier than your heaviest period. You develop a severe headache. You faint. You have blurred vision or spots in your vision. You have bad-smelling vaginal discharge. You have thoughts about hurting yourself or your baby. If you ever feel like you may hurt yourself or others, or have thoughts about taking your own life,get help right away. You can go to the nearest emergency department or call: Your local emergency services (911 in the [place] A suicide crisis helpline, such as the National Suicide Prevention Lifeline at . Thisis open 24 hours a day. Summary The period of time right after you deliver your up to 6 12 weeks after delivery is called the period. Gradually return to your normal activities as told by your health care provider. Keep all follow-up visits for you and your baby as told by your health care provider. This information is not intended to replace advice given to you by your health care provider. Make sure you discuss any questions you have with your health care provider. Document Released: 12/21/2007 Document Revised: 02/26/2018 Document Reviewed: 12/07/2017 [employer] Patient Education 2020 [employer]. Follow Up Care 06/21/2021 06:02:48 With:SHAMAR VEGA Address: [address] [place] [address] [facility] [place] [address] [phone] Business (1) When:Within 2 Week(s) Comments:Call for appointment [facility] 03-30-2022 Hospital Discharge instructions Patient Education 06/05/2021 11:48:39 [place] L[facility]D Outpatient Instructions (AORN) [facility] HOME-GOING INSTRUCTIONS _X_ You are to follow up with your physician in ___ days/weeks. ACTIVITY ___ Bedrest ___Activity as tolerated ___ No work/school for ___ days. ___Other PRESCRIPTION GIVEN ___Yes NAUSEA/VOMITING ___ Take small, frequent amounts of clear liquids. Avoid fruit juices and milk. ___ Increase fluid intake to a minimum of 8 ounces of fluid every hour while awake. ___ Soft diet. Rice, crackers, bananas, Jell-O, cooked carrots, applesauce. ___ [place] diet. Avoid caffeine, chocolate, alcohol, spiced/greasy foods. URINARY TRACT INFECTION ___ Drink 8-12 glasses of water every day. ___ Urinate frequently; do not limit fluids to reduce frequency of urination. ___ Call your physician if burning and frequency with urination returns after taking all your medication. ___ Call your physician if you have a temperature of 100.4 degrees Fahrenheit or higher. ___ Wipe from front to back. SIGNS OF PRE-ECLAMPSIA ___ Severe heartburn. ___ Persistent headache not relieved by Tylenol. ___ Increased in swelling of face, hands and feet. ___ Blurred vision, double vision, or spots in the eyes. ___ Persistent vomiting. ___ *Convulsions or seizures. LABOR __X_ Restrict activity. _X__ Drink 8-12 glasses of water every day. __X_ Urinate frequently __X_ Pelvic rest. No sexual intercourse/ Call your physician if you experience: __X_ Increase in vaginal discharge, leaking fluid, or vaginal bleeding. _XX__ More than 4, 5, or 6 contractions in one hour. ___ Burning and frequency with urination. DECREASED MOVEMENT __X_ Lie down on your left side, drink some fluids and relax. Count the movements. You need to have 10 movements in 2 hours. __X_ If you do not feel the 10 movements, call your physician. OTHER _X__ After an exam you may experience some spotting or discharge. As long as it is not bright red and heavy like a period or continues to leak as if your water broke, it is to be expected. ___ LABOR Call your physician if you experience: _X__ Painful uterine contractions every 3-5 minutes for 1 hours. _X__A gush or continuous trickle of watery discharge. COME TO THE HOSPITAL AND CALL PHYSICIAN IF: _X__ Your abdomen feels continually firm. __X_ *Bleeding is bright red and enough to saturate a pad in one hour or less. *Call 911 or go to the nearest Emergency Room for assistance. Form [id number] D: 02/14 Follow Up Care 06/05/2021 10:33:43 With:HOANG REYNOLDS, SANDHYA Hansen Address: [address] [place] [address] [facility] [place] [address]- [phone] When: Unknown Comments:Follow-up as scheduled [facility] 03-14-2022 Hospital Discharge instructions Patient Education 05/20/2021 18:13:05 7 - Labor and Delivery Outpatient Instructions(CUSTOM) [facility] HOME-GOING INSTRUCTIONS _X_ You are to follow up with your provider as scheduled on Thursday05-24-2021 ACTIVITY ___ Bedrest _X__Activity as tolerated ___ No work/school for ___ days. ___Other PRESCRIPTION GIVEN ___Yes NAUSEA/VOMITING ___ Take small, frequent amounts of clear liquids. Avoid fruit juices and milk. ___ Increase fluid intake to a minimum of 8 ounces of fluid every hour while awake. ___ Soft diet. Rice, crackers, bananas, Jell-O, cooked carrots, applesauce. ___ [place] diet. Avoid caffeine, chocolate, alcohol, spiced/greasy foods. URINARY TRACT INFECTION ___ Drink 8-12 glasses of water every day. ___ Urinate frequently; do not limit fluids to reduce frequency of urination. ___ Call your physician if burning and frequency with urination returns after taking all your medication. ___ Call your physician if you have a temperature of 100.4 degrees Fahrenheit or higher. ___ Wipe from front to back. SIGNS OF PRE-ECLAMPSIA ___ Severe heartburn. ___ Persistent headache not relieved by Tylenol. ___ Increased in swelling of face, hands and feet. ___ Blurred vision, double vision, or spots in the eyes. ___ Persistent vomiting. ___ *Convulsions or seizures. LABOR ___ Restrict activity. ___ Drink 8-12 glasses of water every day. ___ Urinate frequently ___ Pelvic rest. No sexual intercourse/ Call your physician if you experience: ___ Increase in vaginal discharge, leaking fluid, or vaginal bleeding. ___ More than 4, 5, or 6 contractions in one hour. ___ Burning and frequency with urination. DECREASED MOVEMENT _X__ Lie down on your left side, drink some fluids and relax. Count the movements. You need to have 10 movements in 2 hours. _X__ If you do not feel the 10 movements, call your physician. OTHER _X__ After an exam you may experience some spotting or discharge. As long as it is not bright red and heavy like a period or continues to leak as if your water broke, it is to be expected. _X__ LABOR Call your physician if you experience: ___ Painful uterine contractions every ___ minutes for ___ hours. ___A gush or continuous trickle of watery discharge. COME TO THE HOSPITAL AND CALL PHYSICIAN IF: ___ Your abdomen feels continually firm. ___ *Bleeding is bright red and enough to saturate a pad in one hour or less. *Call 911 or go to the nearest Emergency Room for assistance. Form [id number] D: 02/14 Document Released: 02/23/2006 Document Revised: 02/12/2012 Document Reviewed: 02/23/2006 ExitCare Patient Information 2012 [employer]. Follow Up Care 05/20/2021 16:29:17 With:Follow up with primary care provider Address: When: Unknown Comments:Follow-up as scheduled [facility] 02-16-2022 Evaluation + Plan note Future Scheduled Tests Laboratory* Glucose Tolerance Test 3 Hour (AO) 04/24/21 * Glucose 2 Hour Post Prandial 08/02/21 * [facility] Send [facility] (Blood Specimens) 12/24/20 Radiology* US OB W/Biophysical Profile 06/21/21 [facility] 01-05-2022 NoteHNO ID: [id number] Author: Wolf Quach Service: ? Author Type: Physician Type: Progress Notes Filed: 03/13/2021 10:29 PM Note Text: Follow up podiatric office visit for: Chief Complaint: This 30 year old who presents for ingrowing toenail of left hallux Patient presents to clinic for evaluation of left hallux . Patient has painful ingrowing toenail of left hallux. Patient states the ingrown started a few weeks ago. She states the pain is only persent with pressure. She denies any drainage. She had procedure on the right great toe in july and she did well other than a small spicule that developed. Overall, she is fine. Patient is 25 weeks . PAIN EVALUATION No data found in the last 1 encounters. Hemoglobin A1C Date Value Ref Range Status 05/03/2020 5.0 4.3 - 5.6 % Final Comment: [place] Diabetes [employer] guidelines indicate that patients with HgbA1c in the range 5.7-6.4% are at increased risk for development of diabetes, and intervention by lifestyle modification may be beneficial. HgbA1c greater or equal to 6.5% is considered diagnostic of diabetes. PCP: Douglas Blanco DO PAST MEDICAL HISTORY Diagnosis Date - Anxiety - Depression - Hypothyroid - Kidney stones - Low HDL (under 40) 06/2013 - Vitamin D deficiency 06/2013 Current Outpatient Medications Medication Sig - >Blood Pressure Cuff Home HOME BP CUFF, DX: HTN LABILE - cephALEXin (KEFLEX) 500 mg capsule Take 1 capsule by mouth three times daily. (Patient not taking: Reported on 03/13/2021 ) - DULoxetine (CYMBALTA) 30 mg capsule Take 1 capsule by mouth once daily. - buPROPion XL (WELLBUTRIN XL) 150 mg 24 hr tablet Take 1 tablet by mouth once daily. In the morning - citalopram (CELEXA) 20 mg tablet Take 1 tablet by mouth once daily. - albuterol HFA (VENTOLIN HFA) 90 mcg/actuation inhaler Inhale 2 Puffs as instructed every 4 hours as needed for Wheezing/Shortness of Breath. (Patient not taking: Reported on 03/13/2021 ) No current facility-administered medications for this visit. ALLERGIES Allergen Reactions - Lexapro [Escitalopr* GI Upset - Prozac [Fluoxetine * Other: See Comments Worsening depressed mood - Zoloft [Sertraline * GI Upset PAST SURGICAL HISTORY Procedure Laterality Date - REMOVAL ADENOIDS,PRIMARY,<12 Y/O Adenoidectomy Physical Exam: Constitutional: Pt is a well developed 30 year old female who is alert, oriented, cooperative and in no apparent distress. OBJECTIVE: NVSI unchanged from previous visit. Dermatological: Left hallux lateral nail border is ingrowing with small area of blister with serous drainage. No erythema is noted. There is pain with palpation of left hallux lateral nail border. Right hallux medial nail border with small spicule. No signs of infection to right hallux. No pain to right hallux Musculoskeletal/Orthopaedic: Patient has pain to palpation of left hallux lateral nail border. ASSESSMENT: (L60.0) Ingrowing toenail (primary encounter diagnosis) Pain in toe PLAN: Discussed ingrowing toenail of left hallux lateral nail border. There is pain with incurvation of lateral nail border and a superficial bullae with small amount of drainage. Today discussed options for the left hallux lateral nail border. We discussed slant back vs avulsion. In presence of infection and , I would not recommend permanent procedure. Today, this patient has elected to pursue slant back. The left hallux lateral nail border was debrided. Immediate relief noted. Wound culture was obtained. Keflex was prescribed as precaution. If she finds that the toe lacks drainage and now that the lateral nail border is removed, she may hold on antibiotic provided no drainage is noted. If ingrown returns, she may consider matrixectomy in future after delivering her son. Right hallux did have recurrent spicule. No pain. Can monitor. If ingrown returns, consider revised matrixectomy in future. Wolf Quach, [facility]11-26-2021 Hospital Discharge instructions Patient Education 02/01/2021 20:48:49 Hyperemesis Gravidarum Hyperemesis Gravidarum Hyperemesis gravidarum is a severe form of morning sickness that can affect some women during . It may develop around the 5th week and last until the 16th week of . In some women, it may last longer. Symptoms include severe nausea and vomiting. This can lead to problems such as weight loss and dehydration. It's not clear what causes hyperemesis gravidarum. It may be from rising hormone levels early in the . It can be a serious threat to mother and fetus if symptoms are severe. Follow the advice below carefully. If your symptoms don't get better with home care measures, you may need to stay in the hospital. In the hospital, you may get IV (intravenous) fluids and medicines. Home care Diet Keep a log of the foods you eat and how they affect your symptoms. Don't eat foods that trigger your symptoms. Eat small meals often throughout the day rather than 3 large meals. This can help keep your stomachfrom being empty. An empty stomach can make nausea worse. Choose foods that are high in carbohydrates. Eating foods high in protein may also help. Limit greasy or spicy foods. Before getting out of bed in the morning, try eating crackers or dry toast. This may help settle your stomach. Drink cold, clear liquids. Drinking small amounts of liquids with electrolytes, such as sports drinks, may help as well. Medicine If needed, your healthcare provider may prescribe certain medicines to help ease nausea and vomiting. Your provider may suggest vitamin B6 and victor hugo. Don t try any lwjc-tez-rlbkksu medicines or homeremedies without talking with your provider first. Follow-up care Follow up with your healthcare provider, or as advised. When to seek medical advice Call your healthcare provider right away if any of these occur: Signs of dehydration. These include dry mouth, extreme thirst, dark urine or little urine output, dizziness, weakness, or fainting. Vomiting that won t stop Inability to keep down liquids Frequent diarrhea Weight loss or no weight gain over a 2-week period Severe constant pain in the lower right abdomen Fever of 100.4 F (38 C) or higher, or as directed by your healthcare provider [id number] [employer]. [address] [place] [address]. All rights reserved. This information is not intended as a substitute for professional medical care. Always follow yourhealthcare professional's instructions. Follow Up Care 02/01/2021 18:58:36 With:YOSSI GOODMAN DO Address: [phone] When:3-5 days [facility] evaluation + Plan note Future Appointments Appointment Date:01/21/2021 09:00:00 AM Scheduled Provider:SANDHYA BOLTON MD Location:[facility] Appointment Type:[facility] OB Routine Follow Up Future Scheduled Tests Laboratory* [facility] Lab Send out (Blood Specimens) 12/24/20 [facility] Contixaluation + Plan note Future Appointments Appointment Date:02/04/2021 09:30:00 AM Scheduled Provider: Location:[facility] Appointment Type:[facility] - Bamlanivimab Infusion Appointment Date:02/13/2021 11:00:00 AM Scheduled Provider: Location:[facility] Appointment Type:[facility] OB Limited Appointment Date:02/18/2021 09:00:00 AM Scheduled Provider:SANDHYA BOLTON MD Location:[facility] Appointment Type:[facility] OB Routine Follow Up Future Scheduled Tests Laboratory* [facility] Lab Send out (Blood Specimens) 12/24/20 Radiology* US OB Limited 02/13/21 [facility] Contixaluation + Plan note Future Appointments Appointment Date:02/18/2021 09:00:00 AM Scheduled Provider:SANDHYA BOLTON MD Location:[facility] Appointment Type:[facility] OB Routine Follow Up Future Scheduled Tests Laboratory* [facility] Lab Send out (Blood Specimens) 12/24/20 [facility] Evaluation + Plan note Future Appointments Appointment Date:04/15/2021 08:30:00 AM Scheduled Provider:SANDHYA BOLTON MD Location:[facility] Appointment Type: OV OB Routine Follow Up Future Scheduled Tests Laboratory* [facility] Lab Send out (Blood Specimens) 12/24/20 [facility] Evaluation + Plan note Future Appointments Appointment Date:05/02/2021 09:00:00 AM Scheduled Provider: Location:[facility] Appointment Type:NUT Diet Visit Individual Appointment Date:05/09/2021 11:00:00 AM Scheduled Provider: Location:[facility] Appointment Type:[facility] OB Limited Appointment Date:05/13/2021 09:15:00 AM Scheduled Provider:JAMEEL CARO MD Location:[facility] Appointment Type: OV OB Routine Follow Up Future Scheduled Tests Laboratory* Glucose Tolerance Test 3 Hour (AO) 04/24/21 * MISC Lab Send out (Blood Specimens) 12/24/20 Radiology* US OB Limited 05/09/21 [facility] Evaluation + Plan note Future Appointments Appointment Date:05/13/2021 09:15:00 AM Scheduled Provider:JAMEEL CARO MD Location:[facility] Appointment Type: OV OB Routine Follow Up Future Scheduled Tests Laboratory* Glucose Tolerance Test 3 Hour (AO) 04/24/21 * MISC Lab Send out (Blood Specimens) 12/24/20 [facility] Evaluation + Plan note Future Appointments Appointment Date:05/24/2021 03:30:00 PM Scheduled Provider: Location:[facility] Appointment Type:US OB W/Biophysical Profile Appointment Date:05/31/2021 08:30:00 AM Scheduled Provider: Location:[facility] Appointment Type:US OB W/Biophysical Profile Appointment Date:06/07/2021 08:30:00 AM Scheduled Provider: Location:[facility] Appointment Type:US OB W/Biophysical Profile Appointment Date:06/14/2021 08:30:00 AM Scheduled Provider: Location:[facility] Appointment Type:US OB W/Biophysical Profile Appointment Date:06/21/2021 08:30:00 AM Scheduled Provider: Location:[facility] Appointment Type:US OB W/Biophysical Profile Future Scheduled Tests Laboratory* Glucose Tolerance Test 3 Hour (AO) 04/24/21 * MISC Lab Send out (Blood Specimens) 12/24/20 Radiology* US OB W/Biophysical Profile 05/24/21 * US OB W/Biophysical Profile 06/21/21 * US OB W/Biophysical Profile 05/31/21 * US OB W/Biophysical Profile 06/14/21 * US OB W/Biophysical Profile 06/07/21 [facility] Evaluation + Plan note Future Appointments Appointment Date:06/03/2021 08:45:00 AM Scheduled Provider:SADNHYA BOLTON MD Location: [facility] Appointment Type: OV OB Routine Follow Up Appointment Date:06/07/2021 08:30:00 AM Scheduled Provider: Location:[facility] Appointment Type:US OB W/Biophysical Profile Appointment Date:06/07/2021 09:15:00 AM Scheduled Provider:SHAMAR VEGA Location: [facility] Appointment Type: OV OB Routine Follow Up Appointment Date:06/14/2021 08:30:00 AM Scheduled Provider: Location:[facility] Appointment Type:US OB W/Biophysical Profile Appointment Date:06/14/2021 09:15:00 AM Scheduled Provider:SHAMAR VEGA Location: [facility] Appointment Type: OV OB Routine Follow Up Appointment Date:06/21/2021 08:30:00 AM Scheduled Provider: Location:[facility] Appointment Type:US OB W/Biophysical Profile Future Scheduled Tests Laboratory* Glucose Tolerance Test 3 Hour (AO) 04/24/21 * MISC Lab Send out (Blood Specimens) 12/24/20 Radiology* US OB W/Biophysical Profile 06/21/21 * US OB W/Biophysical Profile 06/14/21 * US OB W/Biophysical Profile 06/07/21 [facility] Evaluation + Plan note Future Appointments Appointment Date:06/07/2021 08:30:00 AM Scheduled Provider: Location:[facility] Appointment Type:US OB W/Biophysical Profile Appointment Date:06/07/2021 09:15:00 AM Scheduled Provider:SHAMAR VEGA Location: [facility] Appointment Type: OV OB Routine Follow Up Appointment Date:06/14/2021 08:30:00 AM Scheduled Provider: Location:[facility] Appointment Type:US OB W/Biophysical Profile Appointment Date:06/14/2021 09:15:00 AM Scheduled Provider:SHAMAR VEGA Location:[facility] Appointment Type: OV OB Routine Follow Up Appointment Date:06/21/2021 08:30:00 AM Scheduled Provider: Location:[facility] Appointment Type:US OB W/Biophysical Profile Future Scheduled Tests Laboratory* Glucose Tolerance Test 3 Hour (AO) 04/24/21 * MISC Lab Send out (Blood Specimens) 12/24/20 Radiology* US OB W/Biophysical Profile 06/21/21 * US OB W/Biophysical Profile 06/14/21 * US OB W/Biophysical Profile 06/07/21 [facility] Evaluation + Plan note Future Appointments Appointment Date:06/14/2021 08:30:00 AM Scheduled Provider: Location:[facility] Appointment Type:US OB W/Biophysical Profile Appointment Date:06/14/2021 09:15:00 AM Scheduled Provider:SHAMAR VEGA Location:[facility] Appointment Type: OV OB Routine Follow Up Appointment Date:06/21/2021 08:30:00 AM Scheduled Provider: Location:[facility] Appointment Type:US OB W/Biophysical Profile Future Scheduled Tests Laboratory* Glucose Tolerance Test 3 Hour (AO) 04/24/21 * MISC Lab Send out (Blood Specimens) 12/24/20 Radiology* US OB W/Biophysical Profile 06/21/21 * US OB W/Biophysical Profile 06/14/21 [facility] Evaluation + Plan note Future Appointments Appointment Date:06/21/2021 08:30:00 AM Scheduled Provider: Location:[facility] Appointment Type:US OB W/Biophysical Profile Future Scheduled Tests Laboratory* Glucose Tolerance Test 3 Hour (AO) 04/24/21 * MISC Lab Send out (Blood Specimens) 12/24/20 Radiology* US OB W/Biophysical Profile 06/21/21 [facility] Evaluation note* Diagnosis depression- Primary Mental disorders of mother, Fatigue, unspecified type Alejandrina's disease Chronic lymphocytic thyroiditis Diet controlled gestational diabetes mellitus (GDM), antepartum Vitamin D deficiency Unspecified vitamin D deficiency Dyslipidemia Other and unspecified hyperlipidemia documented in this encounter [facility] course Narrative No data available for this section [facility] Hospital Discharge instructions No data available for this section [facility] Progress note No data available for this section [facility] Summary Purpose Family History No Family History Records FoundNo Family History Records Found Advance Directives No Advanced Directives Records FoundNo Advanced Directives Records Found Additional Source Comments Care Team (unrecognized sect ion and content) Source Comments (unrecognize d section and content) In the event this informatio n is protected by the Federal Confidentiality of Alcohol and Drug Abuse Patient Records regulations: The Federal rules restrict any use of the information to criminally investigate or prosecute any alcohol or drug abuse patient.[facility] Reason for Visit (unrecogniz ed section and content) INFORMATION SOURCE (unrecogn ized section and content) DATE CREATED AUTHOR AUTHOR'S ORGANIZ ATION 09/05/2021 [place] FOR RECORDS PERTAINING TO PATIENTS WHO ARE OR HAVE BEEN ENROLLED IN A CHEMICAL DEPENDENCY/SUBSTANCEABUSE PROGRAM, SOME INFORMATION MAY BE OMITTED. This clinical summary was aggregated from multiple sources. Caution should be exercised in using it in the provision of clinical care. This summary normalizes information from multiple sources, and as a consequence, information in this document may materially change the coding, format and clinical context of patient data. In addition, data may be omitted in some cases. CLINICAL DECISIONS SHOULD BE BASED ON THE PRIMARY CLINICAL RECORDS. [facility]. provides no warranty or guarantee of the accuracy or completeness of information in this document.
== END | disposition home or self-care (01) ==
PROVIDERS: PCP Internal Medicine; Visit Provider Obstetrics & Gynecology
DX: Z90.79 Acquired absence of other genital organ(s) (principal)
CPT/HCPCS: 87070; 87205

== ENCOUNTER → 2023-08-19 | Outpatient (CLI) | payer OTHER, SELFPAY ==
[2023-08-19 12:41] LABS: Absolute Lymphocyte Count 1.82 X10^3/uL (0.83-4.51); Absolute Neutrophil Count 4.2 X10^3/uL (2.0-7.7); Basophil# 0.05 X10^3/uL; Basophil% 0.7 % (0-1); Eosinophil# 0.25 X10^3/uL; Eosinophils% 3.7 % (0-5); Erythrocyte Sedimentation Rate 5 mm/hr (0-30); Hematocrit 41.9 % (37-47); Hemoglobin 13.8 g/dL (12.0-15.0); Lymphocyte # 1.82 X10^3/ul (0.83-4.51); Mean Corp Hgb Conc 32.9 g/dL (32-36); Mean Platelet Vol. 9.7 fl (6.2-12.0); Monocyte# 0.39 X10^3/uL; Monocyte% 5.8 % (0-10); NRBC Flagged by Analyzer 0 % (0-5); Neutrophil % 62.4 % (47-70); Platelet Count 236 K/mm3 (150-450); RBC Distribution Width CV 13.2 % (11.6-14.6); RBC Distribution Width SD 40.3 fl (35.1-43.9); Red Blood Count 4.93 M/mm3 (4.2-5.4); White Blood Count 6.7 K/mm3 (4.4-11.0)
[2023-08-19 13:28] LABS: ALB/GLOB Ratio 1.2 RATIO (0.9-2.4); AST(SGOT) 15 U/L (15-37); Alanine Aminotransfer ALT/SGPT 24 U/L (13-56); Albumin, Serum 3.6 g/dL (3.2-5.0); Alkaline Phosphatase 137 U/L (45-117); Anion Gap 7 (5-15); BUN 11 mg/dL (7-18); BUN/Creat Ratio 14.6 RATIO (10-20); CRP 4.75 mg/L (0.0-3.0); Calcium,Total 9.1 mg/dL (8.5-10.1); Chloride 110 mmol/L (98-107); Creatinine, Serum 0.75 mg/dL (0.55-1.02); EST Glomerular Filtration Rate 95 mL/min (>60); Est Glom Filt Rate - Afr Amer 115 mL/min (>60); Globulin 3.1 g/dL (2.2-4.2); Glucose 112 mg/dL (74-106); Potassium 3.8 mmol/L (3.5-5.1); Protein, Total 6.7 g/dL (6.4-8.2); Sodium Level 138 mmol/L (136-145)
[2023-08-20 13:08] LABS: ANTINUCLEAR ANTIBODIES DIRECT Negative (Negative)
== END | disposition home or self-care (01) ==
LOC: BIMLAB 10:10
PROVIDERS: PCP Internal Medicine; Visit Provider Internal Medicine
DX: G43.109 Migraine with aura, not intractable, without status migrainosus (principal)
CPT/HCPCS: 36415; 80053; 85025; 85652; 86038; 86140; 86225; 86235

== ENCOUNTER → 2023-09-01 | Outpatient (CLI) | payer OTHER, SELFPAY ==
--- NOTE | 2023-09-01 08:06 | MRI_ITS ---
STUDY: MRI BRAIN WITH AND WITHOUT CONTRAST REASON FOR EXAM: Female, 32 years old. new onset migraine TECHNIQUE: Standardized multiplanar fat and water weighted pulse sequences were obtained. IV 24 cc clariscan was administered for the contrast portion of the examination. COMPARISON: None. FINDINGS: Normal size of the ventricles and extra-axial spaces for the patient''s age. Normal white matter tracts of the supratentorial brain. Normal bilateral basal ganglia. Normal thalami. There is no extra-axial fluid accumulation. Normal flow voids within the major intracranial circulation suggesting patency by spin echo criteria. Normal venous enhancement. There is no enhancing intra-axial or extra-axial abnormality. Normal sella turcica, pituitary gland, infundibular stalk, optic chiasm and hypothalamus. Normal tectal plate and pineal gland. Normal midbrain, young and medulla. Normal cerebellum. Normal basal cisterns. Normal bilateral temporal bones. Normal bilateral internal auditory canals. No demonstrated orbital abnormality, within the constraints of a routine brain study. Small mucous retention cyst in right maxillary sinus. Sinuses. Normal calvarium and skull base. Normal visualized soft tissue structures. Normal visualized upper cervical spine. MRI/Brain W/WO Contrast IMPRESSION: Normal unenhanced and enhanced MRI of the brain. Mild right maxillary sinus disease likely chronic Electronically Signed: Andrew Stanton MD at 16:59 EDT ,
== END | disposition home or self-care (01) ==
LOC: MRI 08:02
PROVIDERS: PCP Internal Medicine; Referring Provider Internal Medicine; Visit Provider Internal Medicine
DX: G43.109 Migraine with aura, not intractable, without status migrainosus (principal)
CPT/HCPCS: 70553; A9575

== ENCOUNTER → 2023-12-15 | Outpatient (CLI) | payer OTHER, SELFPAY ==
--- NOTE | 2023-12-15 16:51 | MRI_ITS ---
STUDY: MRI LUMBAR SPINE WITHOUT CONTRAST REASON FOR EXAM: Female, 33 years old. Back pain, C/O L SIDED BACK PAIN, TECHNIQUE: Standardized fat and water weighted pulse sequences were obtained in the sagittal and axial planes. Noncontrast images obtained. Contrast: No contrast administered COMPARISON: None FINDINGS: Vertebral bodies and alignment. 1. Vertebral body height and alignment are maintained. No evidence of marrow edema or occult fracture. 2. Paraspinous soft tissue planes have normal appearance. Normal appearance of the muscular fascial planes of the erector spinae. 3. Normal appearance of the sacrum and sacroiliac joints. 4. Incidental note of marked at distention of the LEFT renal pelvis. Intervertebral disks levels. T12-L1: Normal disc height, hydration and morphology. Normal bilateral facet joints. Normal central canal and bilateral lateral recesses. Normal bilateral intervertebral neural foramina. Endplate: No focal endplate marrow changes or endplate deformity. L1-2: Normal disc height, hydration and morphology. Normal bilateral facet joints. Normal central canal and bilateral lateral recesses. Normal bilateral intervertebral neural foramina. Endplate: No focal endplate marrow changes or endplate deformity. L2-3: Normal disc height, hydration and morphology. There is mild facet hypertrophy.. Normal central canal and bilateral lateral recesses. Normal bilateral intervertebral neural foramina. Endplate: No focal endplate marrow changes or endplate deformity. L3-4: Disc desiccation, no evidence of disc herniation canal or foraminal stenosis. Mild facet hypertrophic changes are present. Endplate: No focal endplate marrow changes or endplate deformity. L4-5: Disc desiccation, no disc herniation or canal stenosis. Facet hypertrophic changes and mild crowding of nerve roots lateral recesses greater on the LEFT than RIGHT. No evidence of foraminal stenosis. Endplate: No focal endplate marrow changes or endplate deformity. L5-S1: Mild disc desiccation, no disc herniation canal or foraminal stenosis. Neural foramina are widely patent. No evidence of nerve root impingement. Endplate: No focal endplate marrow changes or endplate deformity. Spinal cord: Normal appearance of the spinal cord and conus. Conus is located at T12. Cauda equina has normal appearance. No evidence of cord compression or edema. No intramedullary signal abnormality noted. Paraspinous soft tissues: Normal visualized paraspinous soft tissue structures. MRI/Spine Lumbar (Routine) IMPRESSION: 1. Mild disc desiccation at multiple levels from L3 to S1 without evidence saroj disc herniation canal stenosis nerve root or cord compression. 2. No radiographically significant Modic endplate changes. 3. Normal appearance of visualized spinal cord and conus. Electronically Signed: Jefferson Key MD at 22:21 EDT ,
== END | disposition home or self-care (01) ==
PROVIDERS: PCP Internal Medicine; Referring Provider Chiropractor; Visit Provider Chiropractor
DX: M54.50 Low back pain, unspecified (principal); M99.05 Segmental and somatic dysfunction of pelvic region; M99.03 Segmental and somatic dysfunction of lumbar region
CPT/HCPCS: 72148

== ENCOUNTER 2023-12-28 15:10 | Outpatient (RCR) | payer OTHER, SELFPAY ==
--- NOTE | 2023-12-28 16:29 | HP.PTEVAL_ITS ---
Patient's Visit Information Visit Information Visit Information: YOUNG SANTA is a 33 year old F referred to Physical Therapy by Dr. Rama Ford DC with a diagnosis of BACK PAIN, PELVIC AND LUMBAR DYSFUNCTION. Date of Evaluation: 12/28/23 Physical Therapist: Paulette Brown PT, Cert MDT Visit Plan Frequency: 2x /Week Duration: 4-6 Weeks Plan: AQUATIC THERAPY FOR PAIN RELEIF, POSTURE CORRECTION/STRENGTHENING, INSTRUCTION IN APPROPRIATE BODY MECHANICS AND ACTIVITY MODIFICATIONS. DLS STARTING WITH A NEUTRAL SPINE PROGRESSING ROM TOLERATED. KALEY LE ROM, STRETCHING AND STRENGTHENING INCLUDING HIP INTERNAL ROTATION. HEP INSTRUCTION. 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 Disability: NO Present symptoms: LOW BACK PAIN LEFT > RIGHT. KALEY THIGH. INTERMITTENT L BUTTOCK TINGLING Present since: ABOUT 6 WKS AGO Pain Scale: WORST 7/10, LEAST 1/10 Currently: 4/10 Is it getting better, worse or staying the same: STAYING THE SAME Commenced as a result of: LEGS DROPPING DOWN AFTER INTERCOURSE WHILE SUPINE. PATIENT FELT A CRACK IN LOW BACK AND HEARD IT. Symptoms at onset: LOW BACK PAIN AND THE NEXT DAY RESTLESS HIPS. Worse: WALKING, WALKING AT [facility], GIVING SON (2.5 YEAR OLD) A BATH, SITTING AT WORK, LEANING OVER AT WORK, SEX, LAYING ON BACK. TURNING OVER IN BED AFTER LYING ON BACK, LIFTING TODDLER (32 LBS), LIGHT MASSAGE/TOUCH Better: TENS UNIT, ICE, LYING ON BACK WITH PILLOW UNDER BACK. SEMI RECLINED POSITION. Disturbed sleep: YES Previous history/Previous treatment: H/O BACK PAIN X 12 YEARS SINCE FIRST . STARTED DURING . MAINLY MANAGED WITH CHIROPRACTIC. Treatment this episode: CHIROPRACTIC Coughing/sneezing/straining: POSITIVE FOR INCREASED PAIN. GETTING OVER BEING SICK AND COUGHING INCREASED PAIN. Gait: TIME AND DISTANCE LIMITED. Bowel or Bladder Dysfunction: NO Accidents: NO Unexplained weight loss: NO Imaging: RECENT MRI OR LUMBAR: LUMBAR MRI 12/15/23: 1. Mild disc desiccation at multiple levels from L3 to S1 without evidence saroj disc herniation canal stenosis nerve root or cord compression. 2. No radiographically significant Modic endplate changes. 3. Normal appearance of visualized spinal cord and conus. PMH/Recent major surgery: Incisional infection Wears contact lenses Fatty liver Back pain Smoker History of edema History of echocardiogram History of stress test Major depression PTSD (post-traumatic stress disorder) Alejandrina's thyroiditis COVID-19 Deviated nasal septum Anxiety and depression PID (pelvic inflammatory disease) Status post bilateral salpingectomy H/O nasal septoplasty History of adenoidectomy History of ear surgery Hx of appendectomy Objective Objective: Sitting/Standing Posture: PATIENT SITTS IN SLOUCH AND STANDS IN ANTERIOR PELVIC TILT. NO RELEVANT LATERAL LUMBAR SHIFT. PATIENT ABLE TO CORRECT SITTING POSTURE WITH NE ON PAIN BUT DOES NOT MAINTAIN. CORRECTION OF STANDING POSTURE CAUSES LBP TO SPREAD TO HIPS. Other Observations: INDEP GAIT INTO PT WITHOUT ANY AD'S OR LOB. INDEP TRANSFER SIT TO STAND WITHOUT UE ASSIT. SLS X > 15 SEC EA WITHOUT PELVIC DROP AND WITHOUT C/O INCREASED PAIN. Sensory deficit: KALEY LE LIGHT TOUCH SENSATION GROSSLY INTACT AND SYMMETRICAL ROM deficit: KALEY HIP FLEXOR, HS, CALF AND HIP IR TIGHTNESS L>R. Motor deficit: KALEY HIPS 4/5, KALEY KNEES 5/5, KALEY ANKLES 5/5 Reflexes: UNABLE TO ELICIT KALEY LE'S. Dural Signs: NEGATIVE KALEY LE'S. Lumbar mvmt loss: flex - MIN ext - PRISCILA R SG - MOD L SG - MOD PATIENT C/O INCREASED LBP WITH LUMBAR EXT ROM TESTING AND TIGHTNESS/PULLING WITH KALEY SG TESTING L>R. Core strength: POOR Palpation: VERY SENSITIVE WITH PALPATION OVER L5 AND SACRAL AREA WITH PATIENT REALLY NOT WANTING TO BE TOUCHED IN THIS AREA. SHE DOES NOT HAVE ACUTE TENDERNESS OVER KALEY ILIAC CRESTS OR OVER KALEY GREATER TROCH REGIONS. Balance/Special Test Scores Oswestry Low Back Score: 18 Goals Goal 1:: DECREASE C/O BACK AND LE SX'S BY AT LEAST 50% TO EASE ADL'S Goal Time Frame: 4-6 Weeks Goal 2:: IMPROVE SITTING, STANDING ,WALKING, WORK, RECREATIONAL AND SLEEP FUNCTION WITH AT LEAST 5 POINT OSWESTRY SCORE IMPROVEMENT Goal Time Frame: 4-6 Weeks Goal 3:: PATIENT WILL BE INDEP WITH A LAND AND/OR WATER EX PROGRAM FOR CONTINUED IMPROVEMENT ONCE FORMAL PHYSICAL THERAPY CONCLUDES. Rehabilitation Potential Physical Therapy Diagnosis: C/O L/S, HIP AND THIGH PAIN LIMITING ADL'S. TRUNK AND LE WEAKNESS AND STIFFNESS. Rehabilitation Potential: Good Anticipated Interventions Patient/Client Instruction: Educate patient on: Condition, Plan of Care and Risk Factors For the Purpose of:: To improve self management Therapeutic Exercise to Include: Strength training, Body mechanics, Postural training, Flexibilty training, Neuromotor development, In an aquatic setting and Dynamic Lumbar Stabilization For the Purpose of:: To decrease pain, To improve muscle performance and motor function, To improve ability to perform ADL's, To increase tolerance to activity/condition/position, To improve ability of physical actions for home/community/work/leisure, To improve gait and locomotor functions, To increase flexibility/ROM and To improve self management Text: Thank you for the opportunity to evaluate your patient. For Medicare and Medicare HMO plans, please review the plan of care and approve it. It will need to be FAXED BACK to us at [phone] for Medicare purposes. For Medicare only, by signing this I certify the plan of care. Please let me know if there are questions or concerns regarding this plan of care. Physician Signature: Date:
--- NOTE | 2024-01-12 11:29 | HP.PT.NRP ---
Patient Information Patient Information: YOUNG SANTA was seen in my office for initial evaluation on 12/28/23. The following Plan of Care was established for this patient: POC Established Initial Frequency: 2x /Week Initial Duration: 4-6 Weeks Anticipated Interventions Patient/Client Instruction: Educate patient on: Condition, Plan of Care and Risk Factors For the Purpose of:: To improve self management Therapeutic Exercise to Include: Strength training, Body mechanics, Postural training, Flexibilty training, Neuromotor development, In an aquatic setting and Dynamic Lumbar Stabilization For the Purpose of:: To decrease pain, To improve muscle performance and motor function, To improve ability to perform ADL's, To increase tolerance to activity/condition/position, To improve ability of physical actions for home/community/work/leisure, To improve gait and locomotor functions, To increase flexibility/ROM and To improve self management Last Seen Last Seen: This patient was last seen in our office 12/28/23. Pertinent comments regarding their Physical therapy will appear below: It has been my pleasure to see this patient for a total of 1 visit. She was seen for initial evaluation on 12/28/23. This PT received a message that she subsequently called and cancelled all scheduled visits stating life is really hectic right now. She wants to put therapy on hold and start again at the beginning of the year. She will call beginning of March to reschedule. This patient has not returned to Physical Therapy for more visits and is appropriate to return to MD for further follow-up as needed. At this point I will be discontinuing this patient from physical therapy. I would be happy to see this patient again in the future if found appropriate by the physician. Thank you! Paulette Brown, PT, Cert MDT Balance/Gait/Functional tests Balance/Special Test Scores Oswestry Low Back Score: 18
== END 2023-12-28 19:00 | disposition home or self-care (01) ==
LOC: PT 15:10
PROVIDERS: PCP Internal Medicine; Referring Provider Chiropractor; Visit Provider Chiropractor
DX: M99.03 Segmental and somatic dysfunction of lumbar region (principal); M99.05 Segmental and somatic dysfunction of pelvic region; M54.9 Dorsalgia, unspecified
CPT/HCPCS: 97162; 97530

== ENCOUNTER → 2024-02-11 | Outpatient (CLI) | payer OTHER, SELFPAY ==
[2024-02-11 12:14] LABS: Absolute Neutrophil Count 3.6 X10^3/uL (2.0-7.7); Basophil# 0.05 X10^3/uL; Basophil% 0.8 % (0-1); Eosinophil# 0.14 X10^3/uL; Eosinophils% 2.4 % (0-5); Hematocrit 37.4 % (37-47); Hemoglobin 12.5 g/dL (12.0-15.0); Lymphocyte % 28.9 % (19-41); Mean Corp Hgb Conc 33.4 g/dL (32-36); Mean Corpuscular Hgb 27.7 pg (27.0-32.0); Mean Corpuscular Volume 82.7 fL (81-99); Mean Platelet Vol. 9.6 fl (6.2-12.0); Monocyte# 0.39 X10^3/uL; Monocyte% 6.6 % (0-10); NRBC Flagged by Analyzer 0 % (0-5); Neutrophil # 3.59 X10^3/uL (2.7-7.7); Platelet Count 260 K/mm3 (150-450); RBC Distribution Width CV 13.3 % (11.6-14.6); RBC Distribution Width SD 39.9 fl (35.1-43.9); Red Blood Count 4.52 M/mm3 (4.2-5.4); White Blood Count 5.9 K/mm3 (4.4-11.0)
[2024-02-11 12:26] LABS: ALB/GLOB Ratio 1.3 RATIO (0.9-2.4); AST(SGOT) 20 U/L (15-37); Alanine Aminotransfer ALT/SGPT 30 U/L (13-56); Albumin, Serum 3.6 g/dL (3.2-5.0); Alkaline Phosphatase 135 U/L (45-117); Anion Gap 5 (5-15); BUN 9 mg/dL (7-18); CRP 5.23 mg/L (0.0-3.0); Calcium,Total 8.8 mg/dL (8.5-10.1); Chloride 111 mmol/L (98-107); Creatinine, Serum 0.82 mg/dL (0.55-1.02); EST Glomerular Filtration Rate 86 mL/min (>60); Est Glom Filt Rate - Afr Amer 104 mL/min (>60); Globulin 2.7 g/dL (2.2-4.2); Glucose 111 mg/dL (74-106); Potassium 3.7 mmol/L (3.5-5.1); Protein, Total 6.3 g/dL (6.4-8.2); Sodium Level 141 mmol/L (136-145)
[2024-02-11 18:43] LABS: Erythrocyte Sedimentation Rate 3 mm/hr (0-30)
[2024-02-16 00:06] LABS: Anti-Centromere B Ab <0.2 AI (0.0-0.9); Anti-Chromatin <0.2 AI (0.0-0.9); Anti-Jo <0.2 AI (0.0-0.9); Anti-Scleroderma-70 AB <0.2 AI (0.0-0.9); Anti-dsDNA Ab <1 IU/mL (0-9); Beef <0.10 kU/L (Class 0); Chocolate <0.10 kU/L (Class 0); Codfish <0.10 kU/L (Class 0); Corn <0.10 kU/L (Class 0); Egg, Whole <0.10 kU/L (Class 0); Milk (Cow) <0.10 kU/L (Class 0); Mussels <0.10 kU/L (Class 0); Peanut <0.10 kU/L (Class 0); Pork <0.10 kU/L (Class 0); RNP Ab <0.2 AI (0.0-0.9); SJOGREN'S Anti-SS-A test 0.3 AI (0.0-0.9); SJOGREN'S Anti-SS-B test < 0.2 AI (0.0-0.9); Salmon <0.10 kU/L (Class 0); Shrimp <0.10 kU/L (Class 0); Smith Ab <0.2 AI (0.0-0.9); Soybean <0.10 kU/L (Class 0); Tuna <0.10 kU/L (Class 0); Wheat <0.10 kU/L (Class 0)
[2024-02-17 06:09] LABS: ACCA 7 units (0-90); ALCA 1 units (0-60); AMCA 15 units (0-100); Albumin 3.7 g/dL (2.9-4.4); Alpha-1-Globulins 0.2 g/dL (0.0-0.4); Alpha-2-Globulins 0.5 g/dL (0.4-1.0); Cytoplasmic Ab (C-ANCA) <1:20 titer (Neg:<1:20); Endomysial Antibody IgA Negative (Negative); Gamma Globulin 0.8 g/dL (0.4-1.8); Immunoglobulin A 86 mg/dL (87-352); Immunoglobulin E < 2 IU/mL (6-495); Immunoglobulin G 801 mg/dL (586-1602); Immunoglobulin M 82 mg/dL (26-217); PROEL- TOTAL PROTEIN 5.9 g/dL (6.0-8.5); Perinuclear Ab (P-ANCA) <1:20 titer (Neg:<1:20); gASCA 36 units (0-50); t-Transglutaminase IgA <2 U/mL (0-3)
== END | disposition home or self-care (01) ==
PROVIDERS: PCP Internal Medicine; Referring Provider Student in an Organized Health Care Education/Training Program; Visit Provider Student in an Organized Health Care Education/Training Program
DX: R19.7 Diarrhea, unspecified (principal)
CPT/HCPCS: 36415; 80053; 82784; 82785; 83516; 84165; 85025; 85652; 86003; 86005; 86036; 86037; 86140; 86225; 86235; 86255; 86334; 86671

== ENCOUNTER → 2024-02-15 | Outpatient (CLI) | payer OTHER, SELFPAY ==
[2024-02-18 07:07] LABS: Calprotectin, Stool 10 ug/g (0-120)
[2024-02-22 09:22] LABS: Pancreatic Elastase, Fecal 264 (>200)
== END | disposition home or self-care (01) ==
PROVIDERS: PCP Internal Medicine; Referring Provider Student in an Organized Health Care Education/Training Program; Visit Provider Student in an Organized Health Care Education/Training Program
DX: K58.0 Irritable bowel syndrome with diarrhea (principal)
CPT/HCPCS: 82653; 83630; 83993; 87177; 87209; 87329; 87493; 87506

== ENCOUNTER → 2024-04-13 | Outpatient (CLI) | payer OTHER, SELFPAY ==
[2024-04-13 13:18] LABS: Cholesterol 158 mg/dL (200); High Density Lipoprotein 48 mg/dL; T4 Free Direct 0.93 ng/dL (0.76-1.46); Triglycerides 73 mg/dL; Very Low Density Lipoprotein 15 mg/dL (5-40)
[2024-04-13 14:11] LABS: Hemoglobin A1c 4.7 % (3.8-5.6)
[2024-04-16 20:07] LABS: Vitamin D 1,25-Dihydroxy 22.7 pg/mL (24.8-81.5)
== END | disposition home or self-care (01) ==
PROVIDERS: PCP Internal Medicine; Referring Provider Nurse Practitioner Family; Visit Provider Nurse Practitioner Family
DX: Z13.1 Encounter for screening for diabetes mellitus (principal); Z13.220 Encounter for screening for lipoid disorders; Z13.21 Encounter for screening for nutritional disorder; Z13.29 Encounter for screening for other suspected endocrine disorder
CPT/HCPCS: 36415; 80061; 82652; 83036; 84439; 84443

== ENCOUNTER → 2024-04-18 | Outpatient (CLI) | payer OTHER, SELFPAY ==
[2024-04-18 12:34] LABS: Absolute Lymphocyte Count 2.39 X10^3/uL (0.83-4.51); Absolute Neutrophil Count 3.5 X10^3/uL (2.0-7.7); Basophil# 0.06 X10^3/uL; Basophil% 0.9 % (0-1); Eosinophil# 0.11 X10^3/uL; Eosinophils% 1.7 % (0-5); Hemoglobin 13.6 g/dL (12.0-15.0); Lymphocyte # 2.39 X10^3/ul (0.83-4.51); Lymphocyte % 36.9 % (19-41); Mean Corp Hgb Conc 33.2 g/dL (32-36); Mean Corpuscular Hgb 27.2 pg (27.0-32.0); Mean Platelet Vol. 9.4 fl (6.2-12.0); Monocyte# 0.37 X10^3/uL; Monocyte% 5.7 % (0-10); NRBC Flagged by Analyzer 0 % (0-5); Neutrophil # 3.53 X10^3/uL (2.7-7.7); Neutrophil % 54.6 % (47-70); Platelet Count 236 K/mm3 (150-450); RBC Distribution Width CV 13.5 % (11.6-14.6); RBC Distribution Width SD 39.5 fl (35.1-43.9); White Blood Count 6.5 K/mm3 (4.4-11.0)
[2024-04-18 12:40] LABS: D-Dimer Quantitative (DVT/PE) 0.36 FEU/ug/m (0.27-0.49)
[2024-04-18 12:58] LABS: ALB/GLOB Ratio 1.2 RATIO (0.9-2.4); AST(SGOT) 19 U/L (15-37); Alanine Aminotransfer ALT/SGPT 30 U/L (13-56); Albumin, Serum 3.9 g/dL (3.2-5.0); Alkaline Phosphatase 130 U/L (45-117); Anion Gap 7 (5-15); BUN 15 mg/dL (7-18); BUN/Creat Ratio 17.6 RATIO (10-20); Calcium,Total 9.4 mg/dL (8.5-10.1); Chloride 108 mmol/L (98-107); Creatinine, Serum 0.85 mg/dL (0.55-1.02); EST Glomerular Filtration Rate 82 mL/min (>60); Est Glom Filt Rate - Afr Amer 99 mL/min (>60); Globulin 3.3 g/dL (2.2-4.2); Glucose 87 mg/dL (74-106); Protein, Total 7.2 g/dL (6.4-8.2); Sodium Level 138 mmol/L (136-145); Troponin-I HS < 3 pg/mL (3.0-54.0)
== END | disposition home or self-care (01) ==
LOC: BIMLAB 10:48
PROVIDERS: PCP Internal Medicine; Referring Provider Internal Medicine; Visit Provider Internal Medicine
DX: R07.9 Chest pain, unspecified (principal)
CPT/HCPCS: 36415; 80053; 84484; 85025; 85379

== ENCOUNTER 2024-04-28 13:08 | Outpatient (CLI) | payer OTHER, SELFPAY | END 2024-04-28 23:59 | disposition home or self-care (01) | LOC: LABSPEC 13:10 | PROVIDERS: PCP Internal Medicine; Referring Provider Internal Medicine; Visit Provider Internal Medicine | DX: R05.9 Cough, unspecified (principal); R09.81 Nasal congestion | CPT/HCPCS: 87631 ==

== ENCOUNTER → 2024-06-28 | Outpatient (CLI) | payer BC, SELFPAY | END | disposition home or self-care (01) | LOC: SL 11:00 | PROVIDERS: PCP Internal Medicine; Referring Provider Internal Medicine; Visit Provider Internal Medicine | DX: G47.30 Sleep apnea, unspecified (principal) | CPT/HCPCS: 95806 ==

== ENCOUNTER → 2024-08-16 | Outpatient (CLI) | payer BC, SELFPAY ==
--- NOTE | 2024-08-16 13:53 | BI_ITS ---
EXAM: DIAG MAMM W/CAD, BILAT 08/16/2024 CLINICAL HISTORY: F, Age 33 y/o , LEFT BREAST SKIN CHANGES Left periareolar palpable lump. TECHNIQUE: Bilateral Diagnostic digital breast tomosynthesis with 2D and 3D images. Computer aided detection. COMPARISON: Baseline study. FINDINGS: TISSUE DENSITY: The breast tissue is almost entirely fatty. Bilateral Breast Mammographic Findings: No significant masses, calcifications or other abnormalities are identified. With the patient's history of a palpable lump in the left breast, targeted sonographic correlation recommended. BI/DIAG MAMM W/CAD, BILAT IMPRESSION: OVERALL FINAL ASSESSMENT: BIRADS 0 Incomplete: Need additional imaging evaluati on and/or prior mammograms for comparison.. RECOMMENDATION: Targeted sonographic correlation recommended. A letter with findings and recommendations will be mailed to the patient. Reading Location: [place] [id number]
--- NOTE | 2024-08-16 13:53 | US_ITS ---
PROCEDURE: BREAST LIMITED UNILATERAL 08/16/2024 REASON FOR EXAM: LEFT BREAST SKIN CHANGES TECHNIQUE: Targeted left breast ultrasound. COMPARISON: Prior mammogram done earlier in the day. FINDINGS: Left breast ultrasound was targeted to the upper medial aspect of the left breast as well as the lateral aspect of the left breast.. The breast tissue appears sonographically normal. No cyst, solid mass, or suspicious shadowing. US/Breast Limited Unilateral IMPRESSION: Impression: No sonographic abnormality is seen. Birads: BI-RADS 1: NEGATIVE. RECOMMEND ANNUAL MAMMOGRAPHIC SCREENING. Reading Location: [place] [id number]
== END | disposition home or self-care (01) ==
LOC: OPBI 13:52
PROVIDERS: PCP Internal Medicine; Referring Provider Obstetrics & Gynecology; Visit Provider Obstetrics & Gynecology
DX: Q83.9 Congenital malformation of breast, unspecified (principal); N63.20 Unspecified lump in the left breast, unspecified quadrant
CPT/HCPCS: 76642; 77062; 77066; G0279

== ENCOUNTER → 2024-11-08 | Outpatient (CLI) | payer BC, SELFPAY | END | disposition home or self-care (01) | LOC: LABSPEC 16:19 | PROVIDERS: PCP Internal Medicine; Referring Provider Internal Medicine; Visit Provider Internal Medicine | DX: J02.9 Acute pharyngitis, unspecified (principal); R05.9 Cough, unspecified | CPT/HCPCS: 87631 ==